=== PATIENT | female | born 1935 | race Caucasian/White ===

== ENCOUNTER → 2017-10-31 09:22 | Outpatient (CLI) | payer MEDICARE, BC, SELFPAY ==
[2017-10-31 14:43] LABS: Uric Acid 3.1 mg/dL (2.6-7.2)
[2017-11-02 18:17] LABS: Osmolality, Urine 245 mOsmol/kg (.)
== END ==
PROVIDERS: Visit Provider Internal Medicine Nephrology
DX: E87.1 Hypo-osmolality and hyponatremia (principal); I10 Essential (primary) hypertension; N18.2 Chronic kidney disease, stage 2 (mild); N39.0 Urinary tract infection, site not specified
CPT/HCPCS: 36415; 82533; 83930; 83935; 84550

== ENCOUNTER 2018-02-25 11:09 | Observation (INO) ==
--- NOTE | 2018-02-25 12:22 | Emergency Department Note ---
ED Disposition Clinical Impression: Fracture of right tibia and fibula Qualifiers: Encounter type: initial encounter Fracture type: closed Qualified Code(s): S82.201A - Unspecified fracture of shaft of right tibia, initial encounter for closed fracture Disposition: Admitted as Observation Condition on Discharge: Fair - Critical Care Critical Care Time: No Attestation: On 02/25/18, the high probability of a clinically significant, sudden or life threatening deterioration of the following system(s) required my full and direct attention, intervention and personal management. The time I documented below is in addition to time spent performing reported procedures but includes the following listed in this critical care notation. Medical Decision Making - Medical Records Medical records reviewed: Yes: I reviewed the patient's medical records. - Jose Inquiry Pt receiving controlled substance: Yes Jose was queried for this patient: No Reason not queried -: Emergent pt cond-no time Risks and benefits of using a controlled substance: were discussed with pt by me Vital Signs: 02/25/18 10:58 02/25/18 11:29 02/25/18 11:30 Temperature 98.3 F 98.3 F Temperature Source Temporal Artery Scan Temporal Artery Scan Pulse Rate [Right Brachial] 60 60 83 Respiratory Rate 16 16 17 Blood Pressure [Right Arm] 112/76 112/76 147/69 H Blood Pressure Mean [Right Arm] 88 88 95 Blood Pressure Source [Right Arm] Automatic Cuff Automatic Cuff Automatic Cuff Blood Pressure Position [Right Arm] Sitting Sitting Sitting 02 Sat by Pulse Oximetry 96 96 Oxygen Delivery Method Room Air Room Air Orders (Tests/Meds): ED MEDICATIONS Discontinued Medications Generic Name Dose Route Start Last Admin Trade Name Freq PRN Reason Stop Dose Admin Morphine Sulfate 2 mg 02/25/18 11:46 02/25/18 11:47 Morphine 2mg/Ml Syringe IV 02/25/18 11:47 2 mg ONCE ONE Administration Ondansetron HCl 4 mg 02/25/18 11:46 02/25/18 11:47 Zofran 4mg/2ml Vial IV 02/25/18 11:47 4 mg ONCE ONE Administration - Radiology Data #1 Image(s): Tib/Fib Image Reviewed: Yes I reviewed the patient's radiology results, Yes I have reviewed radiologist's interpretation Preliminary Findings: Abnormal Displaced right proximal Tib/Fib fracture Lower Extremity Injury HPI - General Chief Complaint: Fall Stated Complaint: fall Time Seen by Provider: 02/25/18 12:19 Mode of Arrival: EMS Limitations: No Limitations Description of Symptoms (Recalled from ER Triage Doc. by RN): pt was bent over cleaning up water and fell back landing on her buttocks - History of Present Illness MD complaint: leg injury Onset (ago): hour(s) (1) Injury: Right: knee Type of Injury: unknown Place: home Severity: moderate Severity scale (1-10): 7 Relieving factors: nothing Exacerbating factors: weight bearing, movement, palpation Context: fall Associated symptoms: swelling, unable to bear weight Other symptoms: none - Related Data Home Medications Medication Instructions Recorded Confirmed ALPRAZolam [Xanax 0.25mg tab] 0.25 mg PO BIDP 02/25/18 02/25/18 Carvedilol [Carvedilol 3.125mg Tab] 3.125 mg PO BID 02/25/18 02/25/18 Furosemide [Lasix 20mg tab] 20 mg PO DAILY 02/25/18 02/25/18 Gabapentin [Gabapentin 300mg Cap] 300 mg PO BID 02/25/18 02/25/18 Hydralazine HCl [Hydralazine HCl 25 mg PO BID 02/25/18 02/25/18 25mg Tablet] Losartan Potassium 50 mg PO BID 02/25/18 02/25/18 Omeprazole [Omeprazole 40mg 40 mg PO DAILY 02/25/18 02/25/18 Capsule] Pravastatin Sodium [Pravachol 40mg 40 mg PO DAILY 02/25/18 02/25/18 Tablet] Allergies Allergy/AdvReac Type Severity Reaction Status Date / Time penicillin G Allergy Intermediate Verified 02/25/18 11:54 [facility] History I have reviewed the patient's past medical history: Yes - Social History Alcohol Intake: never - Psychiatric History Expresses thoughts of harming self/others: None Suicide Plan Description: No Plan ROS Obtained: Yes All systems reviewed & no additional complaints - Constitutional Constitutional: Reports system reviewed and no additional complaints, except as docu, Denies chills, Denies fever(s), Denies headache(s) - Cardiovascular Cardiovascular: Reports system reviewed and no additional complaints, except as docu, Denies chest pain, Denies dyspnea - Respiratory Respiratory: Yes system reviewed and no additional complaints, except as docu, No cough, No dyspnea - Gastrointestinal Gastrointestingal: Reports: system reviewed and no additional complaints, except as docu. Denies: diarrhea, nausea, vomiting - Genitourinary Female Genitourinary: Reports system reviewed and no additional complaints, except as docu, Denies dysuria - Musculoskeletal Musculoskeletal: Denies back pain, Reports limited range of motion (right lower extremity), Reports radiating pain into limb - Integumentary/Breasts Skin/Breast: Reports system reviewed and no additional complaints, except as docu, Denies wounds - Neurologic Neurologic: Reports system reviewed and no additional complaints, except as docu, Denies dizziness, Denies headache(s) Physical Exam - General General appearance: alert, in distress (moderate) - Head Head exam: atraumatic, normocephalic, normal inspection - Eye Eye exam: Present: normal appearance, PERRL, EOMI - ENT ENT exam: Present: normal exam, normal oropharynx, mucous membranes moist, normal external ear exam - Neck Neck exam: Present: normal inspection, full ROM, trachea midline. Absent: meningismus, lymphadenopathy - Chest Chest inspection: Present: normal inspection, symmetric chest wall rise. Absent: tenderness - Respiratory Respiratory exam: Present: normal lung sounds bilaterally. Absent: respiratory distress - Cardiovascular Cardiovascular exam: Present: regular rate, normal rhythm. Absent: JVD - Abdominal Exam Abdominal exam: Present: soft, normal bowel sounds. Absent: distention, tenderness, guarding - Extremities Exam Extremities exam: Present: normal inspection, tenderness (Proximal RLE), normal capillary refill - Back Exam Back exam: Present: normal inspection. Absent: tenderness - Neurological Exam Neurological exam: Present: alert, oriented X3 - Psychiatric Psychiatric exam: Present: normal affect, normal mood - Skin Skin exam: Present: warm, dry, intact, normal color
--- NOTE | 2018-02-25 15:03 | History & Physical Report ---
*Admission Date: 02/25/18 <Shelby Eaton 02/25/18 15:15> *Chief complaint: fall with fracture of tibia and fibula <Shelby Eaton 02/25/18 15:15> *History of present illness: Ms Quezada is an 82 year old female with a history of HTN who presented to [facility] ER via ambulance after a fall at home resulting in fracture of the right lower leg. Xray confirmed fracture of the tibia and fibula. Patient states she was reaching down and fell backwards. She was unable to get up even with the help of her . EMS was called and she was brought to [facility]. Patient has periodic spells where she becomes dizzy but this was not occurring at the time of her fall. She denies chest pain and shortness of breath before during or after the fall. She normally walks around without any problems. At the time of this exam patient is comfortable after receiving morphine. She is waiting for orthopedic assessment. <EatonShelby 02/25/18 16:33> [facility] History I have reviewed the patient's past medical history: Yes <ErinJuan F - 02/25/18 15:54> Medical History: Reports:: Anxiety, Hypertension Denies:: Atherosclerotic Heart Disease, Chronic Obstructive Pulmonary Disease (COPD), Diabetes Mellitus Type 2 <Shelby Eaton 02/25/18 16:33> Comment: back problems <Shelby Eaton 02/25/18 15:15> Other Surgeries: Yes: Hysterectomy-Partial <Shelby Eaton 02/25/18 15:15> Comment: 2 back surgeries <EatonShelby 02/25/18 15:15> - *Social History Smoking Status: Former smoker <Shelby Eaton 02/25/18 15:15> Alcohol Intake: never <Eaton,Shelby 02/25/18 15:15> - Psychiatric History Expresses thoughts of harming self/others: None <Eaton,Shelby 02/25/18 15:15> Suicide Plan Description: No Plan <Shelby Eaton Andre 02/25/18 15:15> *Family Hx:: Coronary Artery Disease, Diabetes, Stroke <AngelitoShelby 02/25/18 15:15> Review of Systems - Constitutional Denies fever(s), Denies lack of energy <Shelby Eaton 02/25/18 15:15> - *Cardiovascular Reports shortness of breath (with exertion), Denies chest pain <Shelby Eaton 02/25/18 15:15> Comments: history of head feeling funny resulting in cardiology referral and cardiac workup with pending results <Shelby Eaton 02/25/18 15:15> - *Respiratory Reports shortness of breath (with exertion), Denies chest congestion, Denies cough <Shelby Eaton 02/25/18 15:15> - *Gastrointestinal Denies abdominal pain, Denies change in stools, Denies vomiting blood, Denies loose stools, Denies nausea, Denies vomiting <[facility] 02/25/18 15:15> - *Genitourinary Denies difficulty urinating <[facility] 02/25/18 15:15> - *Musculoskeletal Reports joint pain <[facility] 02/25/18 15:15> Comments: right leg pain <[facility] 02/25/18 15:15> - *Neurologic Denies dizziness, Denies headache(s), Denies fainting <Shelby Eaton 02/25/18 15:15> Meds Home Medications Medication Instructions Recorded Confirmed Type ALPRAZolam [Xanax 0.25mg tab] 0.25 mg PO BIDP 02/25/18 02/25/18 History Carvedilol [Carvedilol 3.125mg Tab] 3.125 mg PO BID 02/25/18 02/25/18 History Furosemide [Lasix 20mg tab] 20 mg PO DAILY 02/25/18 02/25/18 History Gabapentin [Gabapentin 300mg Cap] 300 mg PO BID 02/25/18 02/25/18 History Hydralazine HCl [Hydralazine HCl 25 mg PO BID 02/25/18 02/25/18 History 25mg Tablet] Losartan Potassium 50 mg PO BID 02/25/18 02/25/18 History Omeprazole [Omeprazole 40mg 40 mg PO DAILY 02/25/18 02/25/18 History Capsule] Pravastatin Sodium [Pravachol 40mg 40 mg PO HS 02/25/18 02/25/18 History Tablet] <HuguenotSadiq - 02/25/18 18:09> Allergies Allergy/AdvReac Type Severity Reaction Status Date / Time penicillin G Allergy Intermediate Verified 02/25/18 11:54 <HuguenotSadiq - 02/25/18 18:09> Exam Vital signs and Labs for Last 24 Hours: Temp Pulse Resp BP Pulse Ox 98.1 F 75 16 152/95 H 97 02/25/18 16:49 02/25/18 16:49 02/25/18 16:49 02/25/18 16:49 02/25/18 16:59 <HuguenotSadiq - 02/25/18 18:09> Temp Pulse Resp BP Pulse Ox 98.3 F 66 17 105/51 L 98 02/25/18 11:29 02/25/18 15:48 02/25/18 15:48 02/25/18 15:48 02/25/18 15:48 <Raúl Khanimi - 02/25/18 17:04> Temp Pulse Resp BP Pulse Ox 98.3 F 74 18 99/47 L 98 02/25/18 11:29 02/25/18 14:30 02/25/18 14:30 02/25/18 14:30 02/25/18 14:30 <Shelby Eaton - 02/25/18 15:15> I & O for Last 24 hours: Intake & Output 02/23/18 02/24/18 02/25/18 02/26/18 11:59 11:59 11:59 11:59 Intake Total 1000 / 1000 Balance 1000 / 1000 Weight 125 lb 133 lb <Huguenot,Sadiq - 02/25/18 18:09> Intake & Output 02/22/18 02/23/18 02/24/18 02/25/18 23:59 23:59 23:59 23:59 Weight 56.699 kg <Ilmarleyomade,Juan F - 02/25/18 17:04> Intake & Output 02/23/18 02/24/18 02/25/18 02/26/18 11:59 11:59 11:59 11:59 Weight 125 lb <Shelby Eaton - 02/25/18 15:15> Radiology Reports for the Last 24 Hours: 02/25/18 x-ray of tib/fib IMPRESSION: Comminuted mildly displaced proximal tibia fracture with nondisplaced proximal fibular fracture <[facility] 02/25/18 15:15> - Constitutional no acute distress <[facility] 02/25/18 15:15> Comments: lying on stretcher in the ER; appears comfortable <[facility] 02/25/18 15:15> - *Routine HEENT Exam Head: Present: normocephalic, atraumatic <[facility] 02/25/18 15:15> Eye: Present: PERRL. Absent: conjunctival icterus, scleral injection <[facility] 02/25/18 15:15> ENT: Present: mucous membranes moist, oropharynx clear, nares patent, external ear normal, TM's clear bilaterally <[facility] 02/25/18 15:15> - *Routine Neck Exam Present: supple. Absent: carotid bruit, lymphadenopathy, thyromegaly <[facility] 02/25/18 15:15> - *Routine Respiratory Exam Present: CTA bilaterally (anteriorly and posteriorly) <[facility] 02/25/18 15:15> - *Routine Cardiovascular Exam Present: RRR <[facility] 02/25/18 15:15> - *Routine Abdominal Exam Present: soft, normoactive bowel sounds. Absent: tenderness, distended, guarding <[facility] 02/25/18 15:15> - *Routine Extremities Exam Absent: edema, calf tenderness <[facility] 02/25/18 15:15> Comments: right leg with extended knee brace on <[facility] 02/25/18 15:15> - *Routine Neurological Exam Present: alert, oriented X3 <[facility] 02/25/18 15:15> Assessment and Plan (1) Fracture of right tibia and fibula Current visit: Yes Status: Acute Qualifiers: Encounter type: initial encounter Fracture type: closed Qualified Code(s): S82.201A - Unspecified fracture of shaft of right tibia, initial encounter for closed fracture; S82.401A - Unspecified fracture of shaft of right fibula, initial encounter for closed fracture Category: Medical Code(s): S82.201A - Unspecified fracture of shaft of right tibia, initial encounter for closed fracture; S82.401A - Unspecified fracture of shaft of right fibula, initial encounter for closed fracture (2) Hypertension Current visit: Yes Status: Chronic Category: Medical Code(s): I10 - Essential (primary) hypertension (3) Anxiety Current visit: Yes Status: Chronic Category: Medical Code(s): F41.9 - Anxiety disorder, unspecified <Shelby Eaton - 02/25/18 16:28> - Assessment and plan all Dx Assessment and Plan for all problems:: Saw patient, agree with above note. <Sadiq Valenzuela - 02/25/18 18:09> Patient to be seen orthopedics. She has a knee immobilizer on the right. We will continue with pain management. <Shelby Eaton - 02/25/18 16:33>
--- NOTE | 2018-02-25 21:20 | Pharmacy Consult Notes ---
[facility] Pharmacy VTE Monitoring - Patient Demographics Admission date: 02/25/18 Report Date: 02/25/18 Time: 21:19 Allergies/Adverse Reactions: Patient Allergies penicillin G Allergy (Intermediate, Verified 02/25/18 11:54) Height: 1.57 m Weight: 60.328 kg Patient Problems: Current Active Problems Fracture of right tibia and fibula (Acute) Hypertension (Chronic) Anxiety (Chronic) - VTE Risk VTE Score: 4 VTE Risk Level: Low Risk Clinical Trial Participant: No - Prophylaxis VTE Prophylaxis Ordered?: Yes Types of VTE Prophylaxis: TEDS Knee High
--- NOTE | 2018-02-25 22:36 | Consult Report ---
*Admission Date: 02/25/18 *Chief complaint: Fall with fracture of right tibia and fibula *History of present illness: Patient is a pleasant 82-year-old female admitted to hospital today from the ER mainly for social reasons. She says she fell at home while trying to clean the wet floor this morning. She was unable to get up and walk and was brought to the [facility] ER for evaluation and further management. X-rays in the ER showed a minimally displaced proximal tibia fracture with a nond isplaced fibular neck fracture on the right side. I was contacted earlier this afternoon by the ER physician and after reviewing her x-rays, I have recommended splinting and follow-up in the office in a couple of days time. However, the ER physician made a decision to admit the patient to acute medical service under Dr. Valenzuela for social reasons given her age and difficulty with nonweightbeari ng mobilization. I have briefly seen her in the ER earlier this afternoon but could not complete full evaluation at that time as the ER physician was evaluating her for a possible seizure. At that time, I have discussed with her regarding the management options and he indicated a preference for nonsurgical management. This, I felt, is appropriate given her age and only minimal displacement at the tibial fracture site and no displacement of the fibular fracture site. I have recommended application of a long-leg splint to her right leg. She has history of HTN and anxiety as well as history of periodic spells of dizziness. However, patient states that she did not have a dizzy spell prior to the fall today. She denies chest pain and shortness of breath before during or after the fall. She normally walks around without any problems and does not use any walking aids. At the time of this examination patient is comfortable and quietly resting in bed. She says she has minimal pain which is well controlled with medication. Review of Systems - Constitutional Denies chills, Denies fever(s), Denies lack of energy - *Cardiovascular Denies chest pain, Denies shortness of breath - *Respiratory Denies cough, Denies shortness of breath - *Gastrointestinal Denies abdominal pain, Denies difficulty swallowing - *Genitourinary Denies difficulty urinating - *Musculoskeletal Reports joint pain, Reports limited joint movement, Reports other Comments: Right leg injury - *Neurologic Denies dizziness, Denies headache(s), Denies fainting - Psychiatric Denies behavioral changes, Denies change in appetite [facility] History I have reviewed the patient's past medical history: Yes Medical History: Reports:: Anxiety, Hypertension Denies:: Atherosclerotic Heart Disease, Cancer, Chronic Obstructive Pulmonary Disease (COPD), Diabetes Mellitus Type 1, Diabetes Mellitus Type 2, MRSA Other Surgeries: Yes: Hysterectomy-Total, Hysterectomy-Partial Amputation: No Fractures: Yes - *Social History Educational Level: Completed High School Smoking Status: Never smoker Alcohol Intake: never Occupational Status: retired Housing: house Household Members: spouse - Psychiatric History Expresses thoughts of harming self/others: None Suicide Plan Description: No Plan Pschychiatric History:: Reports:: Anxiety *Family Hx:: Coronary Artery Disease, Diabetes, Stroke Meds Home Medications Medication Instructions Recorded Confirmed Type ALPRAZolam [Xanax 0.25mg tab] 0.25 mg PO BIDP 02/25/18 02/25/18 History Carvedilol [Carvedilol 3.125mg Tab] 3.125 mg PO BID 02/25/18 02/25/18 History Furosemide [Lasix 20mg tab] 20 mg PO DAILY 02/25/18 02/25/18 History Gabapentin [Gabapentin 300mg Cap] 300 mg PO BID 02/25/18 02/25/18 History Hydralazine HCl [Hydralazine HCl 25 mg PO BID 02/25/18 02/25/18 History 25mg Tablet] Losartan Potassium 50 mg PO BID 02/25/18 02/25/18 History Omeprazole [Omeprazole 40mg 40 mg PO DAILY 02/25/18 02/25/18 History Capsule] Pravastatin Sodium [Pravachol 40mg 40 mg PO HS 02/25/18 02/25/18 History Tablet] Allergies Allergy/AdvReac Type Severity Reaction Status Date / Time penicillin G Allergy Intermediate Verified 02/25/18 11:54 Exam Vital signs and Labs for Last 24 Hours: Temp Pulse Resp BP Pulse Ox 98.1 F 75 16 152/95 H 97 02/25/18 16:49 02/25/18 16:49 02/25/18 16:49 02/25/18 16:49 02/25/18 16:59 I & O for Last 24 hours: Intake & Output 1102/24/18 02/25/18 02/26/18 11:59 11:59 11:59 11:59 Intake Total 1240 / 1240 Output Total 540 / 540 Balance 700 / 700 Weight 125 lb 133 lb - Constitutional no acute distress, average body habitus, cooperative - *Routine HEENT Exam Head: Present: normocephalic, atraumatic Eye: Present: EOMI, PERRL ENT: Present: mucous membranes moist - *Routine Neck Exam Present: supple, full ROM, trachea midline. Absent: lymphadenopathy - *Routine Respiratory Exam Present: CTA bilaterally. Absent: respiratory distress - *Routine Cardiovascular Exam Present: RRR, Normal S1, Normal S2 - *Routine Abdominal Exam Present: soft, normoactive bowel sounds. Absent: organomegaly - *Routine Extremities Exam Comments: On examination of her right lower extremity, the leg is in a temporary, removable foarm splint. On examination out of the splint, the skin is intact. There is diffuse swelling and tenderness over the proximal third of the right leg. There is also some swelling of her right knee with 1+ knee effusion. Movements of the right lower extremity are limited with pain. She has altered sensation over the dorsum of the foot. She has good range of ankle, foot and toe movements. No obvious motor deficit noted. Dorsalis pedis and posterior tibial pulses 1+ bilaterally. Thigh and leg compartments are soft. No stretch pain or other signs of compartment syndrome noted. Diagnostic imaging: X-rays of her right leg including knee and ankle joint AP and lateral views reviewed along with radiologist report. The x-rays show a minimally displaced, comminuted fracture proximal third of the tibia with a comminuted nondisplaced fracture of the fibular neck. - Routine Back/Spine/Pelvis Exam Back/Spine: Absent: paraspinal tenderness, vertebral tenderness Pelvis: Absent: pain with lateral compression of the pelvis - *Routine Skin Exam Present: intact, warm, normal turgor - *Routine Neurological Exam Present: alert, oriented X3 - Routine Psychiatric Exam Present: normal affect, cooperative Results - Labs Labs: All other labs normal. Assessment and Plan (1) Fracture of right tibia and fibula Current visit: Yes Status: Acute Qualifiers: Encounter type: initial encounter Fracture type: closed Qualified Code(s): S82.201A - Unspecified fracture of shaft of right tibia, initial encounter for closed fracture; S82.401A - Unspecified fracture of shaft of right fibula, initial encounter for closed fracture Category: Medical Code(s): S82.201A - Unspecified fracture of shaft of right tibia, initial encounter for closed fracture; S82.401A - Unspecified fracture of shaft of right fibula, initial encounter for closed fracture - Assessment and plan all Dx Assessment and Plan for all problems:: I reviewed the clinical and x-ray findings with the patient. I have discussed the diagnosis, natural history and management options in detail including both nonsurgical and surgical. Given her age, the fracture pattern with minimal displacement and acceptable overall alignment, she preferred nonsurgical management. I have told her that nonsurgical management would involve immobilization with a long leg splint/cast until the fracture heals- this could take more than 3 months. During this period, she would have regular follow-up with serial x-rays. Patient is aware that she may need surgery at any point if there is significant displacement at the fracture site, she is not able to tolerate the splint/cast or develops any other complications that are best managed by surgery. I told her that the tibial fracture may go into nonunion/malunion for which she may need surgery in future. The risks of nonoperative management would include malunion, nonunion, compartment syndrome, DVT/PE, loss of position or inability to tolerate the splinting necessitating surgery in future, pressure ulcers, knee and ankle stiffness, incomplete relief of pain, incomplete return of function and the likely need for surgery in future. The fibula fracture usually heals by itself and does not need surgical fixation. 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 There is no motor deficit. 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 The surgical management options for her fracture would be a closed/open reduction and internal fixation with tibial nailing/plating. I discussed the details of the surgical procedure, risks and benefits and alternatives. Risks of surgery discussed include but are not limited to- infection, bleeding injury to nerves and blood vessels, compartment syndrome, fat embolism, intra-articular knee injury, incisional scar (cosmesis), DVT/PE, malunion, nonunion/delayed union, refracture, knee/ankle stiffness and pain, CRPS (complex regional pain syndrome- pain, sensory and temperature changes, swelling and stiffness), painful/prominent hardware, loss of fixation/hardware failure, incomplete relief of pain, incomplete return of function, and likely need for further surgery in future and also the risks of anesthesia including heart attack, stroke, and even . We've discussed how there is a small but real possibility of loss of use of the leg, loss of the limb (amputation) or loss of life itself. We've also explained how additional surgery may be required if there are any complications or the fracture fails to heal. Following a detailed discussion, patient opted for nonsurgical management. I have applied a well-padded long leg splint for temporary immobilization and comfort. Advised elevation, active mobilization of the toes, ice the fracture site frequently, as needed pain medication, observe for compartment syndrome and mobilization nonweightbearing on the right side. Physical therapy consult for nonweightbearing mobilization training with walker/crutches as appropriate. The patient expressed good understanding and has asked appropriate questions. All her questions were answered and she verbalized a good understanding. From an orthopedic standpoint, patient can be discharged when safe and comfortable and medically appropriate. Follow-up in my office in 1 week's time at which point we will evaluate her for application of a long-arm cast. Patient is aware that she would need regular and close follow-up for a considerable length of time. Medical management as per Dr. Valenzuela.
[2018-02-26 05:33] LABS: Basophils % 0.7 % (0.1-2.0); Eosinophils # 0.1 K/mm3 (0.0-0.4); Lymphocytes # 1.9 K/mm3 (0.7-4.5); Lymphocytes % 32.2 % (10-50); Mean Corpuscular HGB Conc 32.1 g/dL (31.8-35.4); Mean Corpuscular Hemoglobin 38.2 pg (27.0-31.2); Mean Platelet Volume 10.2 fl (7.4-10.4); Monocytes # 0.6 K/mm3 (0.1-1.0); Monocytes % 9.7 % (1.7-9.3); Neutrophils # 3.3 K/mm3 (1.8-7.8); Neutrophils % 56.4 % (37.0-80.0); Platelet Count 119 K/mm3 (142-424); Red Cell Distribution Width 17.8 % (11.5-17.5); White Blood Count 5.9 K/mm3 (4.8-10.8)
[2018-02-26 05:35] LABS: Hematocrit 21.4 % (37.0-47.0); Hemoglobin 6.9 g/dL (12.2-16.2)
[2018-02-26 05:47] LABS: Albumin Level 2.6 gm/dL (3.4-5.0); Albumin/Globulin Ratio 0.9 (1.1-1.8); Bilirubin,Total 0.7 mg/dL (0.2-1.0); Calcium 7.7 mg/dL (8.5-10.1); Globulin 2.8 gm/dl (1.3-3.2); Total Protein,Serum 5.4 gm/dL (6.4-8.2)
[2018-02-26 07:26] LABS: Basophils % 0.6 % (0.1-2.0); Eosinophils # 0.1 K/mm3 (0.0-0.4); Eosinophils % 1.4 % (0.1-12.0); Lymphocytes # 1.9 K/mm3 (0.7-4.5); Lymphocytes % 31.9 % (10-50); Mean Corpuscular HGB Conc 32.8 g/dL (31.8-35.4); Mean Corpuscular Hemoglobin 39.1 pg (27.0-31.2); Mean Corpuscular Volume 119.2 fl (81-99); Mean Platelet Volume 8.4 fl (7.4-10.4); Monocytes # 0.6 K/mm3 (0.1-1.0); Monocytes % 9.4 % (1.7-9.3); Neutrophils # 3.3 K/mm3 (1.8-7.8); Neutrophils % 56.7 % (37.0-80.0); Platelet Count 146 K/mm3 (142-424); Red Blood Count 1.75 M/mm3 (4.20-5.40); Red Cell Distribution Width 17.7 % (11.5-17.5); White Blood Count 5.9 K/mm3 (4.8-10.8)
[2018-02-26 07:36] LABS: Albumin Level 2.5 gm/dL (3.4-5.0); Albumin/Globulin Ratio 0.9 (1.1-1.8); Anion Gap 9.9 mEq/L (5-15); Bilirubin,Total 0.8 mg/dL (0.2-1.0); Calcium 7.7 mg/dL (8.5-10.1); Globulin 2.9 gm/dl (1.3-3.2); Hematocrit 20.8 % (37.0-47.0); Hemoglobin 6.8 g/dL (12.2-16.2); Potassium 3.9 mmoL/L (3.5-5.1); Total Protein,Serum 5.4 gm/dL (6.4-8.2)
--- NOTE | 2018-02-26 08:46 | Progress Note ---
Internal Medicine - PN: Subj *Date: 02/26/18 *Time: 08:44 Interval history: Patient with no new complaints today, still has some pain in leg, less nausea today. Splint was placed n leg last night. Exam Vital signs and Labs for Last 24 Hours: Temp Pulse Resp BP Pulse Ox 98.6 F 78 16 105/45 L 95 02/26/18 08:00 02/26/18 08:00 02/26/18 08:00 02/26/18 08:00 02/26/18 08:00 Laboratory Results - last 24 hr 02/26/18 05:25: WBC 5.9, RBC 1.80 L*, Hgb 6.9 L*, Hct 21.4 L*, MCV 119.0 H, MCH 38.2 H, MCHC 32.1, RDW 17.8 H, Plt Count 119 L, MPV 10.2, Neut % (Auto) 56.4, Lymph % (Auto) 32.2, [place] % (Auto) 9.7 H, Eos % (Auto) 1.0, Baso % (Auto) 0.7, Neut # (Auto) 3.3, Lymph # (Auto) 1.9, [place] # (Auto) 0.6, Eos # (Auto) 0.1, Baso # (Auto) 0.0 02/26/18 05:25: Sodium 133 L, Potassium 4.0, Chloride 99, Carbon Dioxide 26, Anion Gap 12.0, BUN 11, Creatinine 0.98, Estimated Creat Clear 41, Estimated GFR 54 L, Est GFR ( Amer) 66, Glucose 116 H, Calcium 7.7 L, Total Bilirubin 0.7, AST 12 L, ALT 15, Alkaline Phosphatase 39 L, Total Protein 5.4 L, Albumin 2.6 L, Globulin 2.8, Albumin/Globulin Ratio 0.9 L 02/26/18 07:00: WBC 5.9, RBC 1.75 L*, Hgb 6.8 L*, Hct 20.8 L*, MCV 119.2 H, MCH 39.1 H, MCHC 32.8, RDW 17.7 H, Plt Count 146, MPV 8.4, Neut % (Auto) 56.7, Lymph % (Auto) 31.9, [place] % (Auto) 9.4 H, Eos % (Auto) 1.4, Baso % (Auto) 0.6, Neut # (Auto) 3.3, Lymph # (Auto) 1.9, [place] # (Auto) 0.6, Eos # (Auto) 0.1, Baso # (Auto) 0.0 02/26/18 07:00: Sodium 133 L, Potassium 3.9, Chloride 100, Carbon Dioxide 27, Anion Gap 9.9, BUN 10, Creatinine 0.95, Estimated Creat Clear 41, Estimated GFR 56 L, Est GFR ( Amer) 68, Glucose 107 H, Calcium 7.7 L, Total Bilirubin 0.8, AST 11 L, ALT 15, Alkaline Phosphatase 38 L, Total Protein 5.4 L, Albumin 2.5 L, Globulin 2.9, Albumin/Globulin Ratio 0.9 L I & O for Last 24 hours: Intake & Output 02/23/18 02/24/18 02/25/18 02/26/18 11:59 11:59 11:59 11:59 Intake Total 1480 / 1480 Output Total 790 / 790 Balance 690 / 690 Weight 125 lb 133 lb - Constitutional no acute distress - *Routine Respiratory Exam Present: CTA bilaterally - *Routine Cardiovascular Exam Present: RRR Assessment and Plan (1) Fracture of right tibia and fibula Current visit: Yes Status: Acute Qualifiers: Encounter type: initial encounter Fracture type: closed Qualified Code(s): S82.201A - Unspecified fracture of shaft of right tibia, initial encounter for closed fracture; S82.401A - Unspecified fracture of shaft of right fibula, initial encounter for closed fracture Category: Medical Code(s): S82.201A - Unspecified fracture of shaft of right tibia, initial encounter for closed fracture; S82.401A - Unspecified fracture of shaft of right fibula, initial encounter for closed fracture (2) Anemia Current visit: Yes Status: Acute Category: Medical Code(s): D64.9 - Anemia, unspecified (3) Hypertension Current visit: Yes Status: Chronic Category: Medical Code(s): I10 - Essential (primary) hypertension - Assessment and plan all Dx Assessment and Plan for all problems:: Plan transfusion of 2 units of PRBCs today, PT to see patient.
--- NOTE | 2018-02-26 14:10 | Progress Note ---
Subjective Date: 02/26/18 Time: 10:15 Principal diagnosis: Fracture tibia and fibula, right leg Interval history: Patient is lying down in bed says she is comfortable. She says she has some leg pain which is well controlled with medication. No history of any nausea or vomiting. No history of any cough, chest pain, shortness of breath or palpitations. Patient says she is eating and drinking well. Her and son are with her in the room. The labs this morning showed very low hemoglobin and she is to be transfused 2 units of packed cells today. 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 PN: Obj Ex Vital signs: Temp Pulse Resp BP Pulse Ox 98.8 F 80 18 107/40 L 97 02/26/18 13:35 02/26/18 13:35 02/26/18 13:35 02/26/18 13:35 02/26/18 13:35 Narrative: Laboratory Results - last 24 hr 02/26/18 05:25: WBC 5.9, RBC 1.80 L*, Hgb 6.9 L*, Hct 21.4 L*, MCV 119.0 H, MCH 38.2 H, MCHC 32.1, RDW 17.8 H, Plt Count 119 L, MPV 10.2, Neut % (Auto) 56.4, Lymph % (Auto) 32.2, [place] % (Auto) 9.7 H, Eos % (Auto) 1.0, Baso % (Auto) 0.7, Neut # (Auto) 3.3, Lymph # (Auto) 1.9, [place] # (Auto) 0.6, Eos # (Auto) 0.1, Baso # (Auto) 0.0 02/26/18 05:25: Sodium 133 L, Potassium 4.0, Chloride 99, Carbon Dioxide 26, Anion Gap 12.0, BUN 11, Creatinine 0.98, Estimated Creat Clear 41, Estimated GFR 54 L, Est GFR ( Amer) 66, Glucose 116 H, Calcium 7.7 L, Total Bilirubin 0.7, AST 12 L, ALT 15, Alkaline Phosphatase 39 L, Total Protein 5.4 L, Albumin 2.6 L, Globulin 2.8, Albumin/Globulin Ratio 0.9 L 02/26/18 05:25: Ferritin 188 02/26/18 07:00: WBC 5.9, RBC 1.75 L*, Hgb 6.8 L*, Hct 20.8 L*, MCV 119.2 H, MCH 39.1 H, MCHC 32.8, RDW 17.7 H, Plt Count 146, MPV 8.4, Neut % (Auto) 56.7, Lymph % (Auto) 31.9, [place] % (Auto) 9.4 H, Eos % (Auto) 1.4, Baso % (Auto) 0.6, Neut # (Auto) 3.3, Lymph # (Auto) 1.9, [place] # (Auto) 0.6, Eos # (Auto) 0.1, Baso # (Auto) 0.0 02/26/18 07:00: Sodium 133 L, Potassium 3.9, Chloride 100, Carbon Dioxide 27, Anion Gap 9.9, BUN 10, Creatinine 0.95, Estimated Creat Clear 41, Estimated GFR 56 L, Est GFR ( Amer) 68, Glucose 107 H, Calcium 7.7 L, Total Bilirubin 0.8, AST 11 L, ALT 15, Alkaline Phosphatase 38 L, Total Protein 5.4 L, Albumin 2.5 L, Globulin 2.9, Albumin/Globulin Ratio 0.9 L 02/26/18 09:30: Blood Type A Positive, Antibody Screen Negative, Crossmatch (AHG) See Detail 02/26/18 09:55: Blood Type Confirm A Positive Exam: General appearance: alert, active, awake Cardiovascular: regular rate & rhythm, normal peripheral pulses Respiratory: No respiratory distress noted, speaks in full sentences ABD: soft and non tender Neuro: alert, awake, oriented x 3 On examination of the l right lower extremity, a well fitting long leg splint is in place. She reports no problems from the splint. Patient is able to actively mobilize the toes. Sensation is intact light touch over the toes. Capillary refill is brisk. No stretch pain or other signs of compartment syndrome noted. - Urinary Catheter Management Padron Cath placed during this visit: yes Urethral indwelling: No Insertion date: 02/25/18 Insertion time: 17:10 Progress Note: A&P (1) Fracture of right tibia and fibula Status: Acute Current Visit: Yes (2) Anemia Status: Acute Current Visit: Yes (3) Hypertension Status: Chronic Current Visit: Yes Assessment and Plan for All Diagnoses:: I again reviewed the clinical and x-ray findings with the patient and her family. The patient, her and son are keen for nonsurgical management and do not want surgery unless it is absolutely necessary. Continue elevation, icing, as needed pain medication. To be seen by physical therapy for mobilization nonweightbearing on the right side. Patient can be discharged from an orthopedic standpoint when safe and comfortable. Follow-up in my office in 1 week's time. Medical management as per Dr. Valenzuela.
[2018-02-26 18:19] LABS: Hematocrit 30.5 % (37.0-47.0)
[2018-02-26 18:33] LABS: Hemoglobin 10.3 g/dL (12.2-16.2)
--- NOTE | 2018-02-27 07:54 | Progress Note ---
<Shelby Eaton - Last Filed: 02/27/18 07:50> Internal Medicine - PN: Subj *Date: 02/27/18 *Time: 07:50 Interval history: Patient slept well last night. She is eating okay although she has a poor appetite. She cannot tell if she feels better after receiving 2 units of packed blood cells yesterday. Her leg does hurt at times. She has voided since her Padron catheter was removed. She denies chest pain and shortness of air. PT and OT report reviewed. Patient required maximum assist to stand. Exam Vital signs and Labs for Last 24 Hours: Temp Pulse Resp BP Pulse Ox 97.8 F 79 18 133/52 L 95 02/27/18 04:00 02/27/18 04:00 02/27/18 04:00 02/27/18 04:00 02/27/18 04:00 Laboratory Results - last 24 hr 02/26/18 05:25: Ferritin 188 02/26/18 09:30: Blood Type A Positive, Antibody Screen Negative, Crossmatch (AHG) See Detail 02/26/18 09:55: Blood Type Confirm A Positive 02/26/18 18:01: Hgb 10.3 L D, Hct 30.5 L I & O for Last 24 hours: Intake & Output 02/24/18 02/25/18 02/26/18 02/27/18 11:59 11:59 11:59 11:59 Intake Total 1480 / 1480 869 / 869 Output Total 790 / 790 1225 / 1225 Balance 690 / 690 -356 / -356 Weight 125 lb 133 lb - Constitutional no acute distress Comments: Appears comfortable lying in bed. Assisted in preparation for breakfast - *Routine Respiratory Exam Present: CTA bilaterally - *Routine Cardiovascular Exam Present: RRR - *Routine Abdominal Exam Present: soft, normoactive bowel sounds. Absent: tenderness - *Routine Extremities Exam Absent: edema, calf tenderness Comments: Patient right leg and long leg cast. Toes are warm and freely movable - *Routine Neurological Exam Present: alert, oriented X3 Assessment and Plan (1) Fracture of right tibia and fibula Current visit: Yes Status: Acute Qualifiers: Encounter type: initial encounter Fracture type: closed Qualified Code(s): S82.201A - Unspecified fracture of shaft of right tibia, initial encounter for closed fracture; S82.401A - Unspecified fracture of shaft of right fibula, initial encounter for closed fracture Category: Medical Code(s): S82.201A - Unspecified fracture of shaft of right tibia, initial encounter for closed fracture; S82.401A - Unspecified fracture of shaft of right fibula, initial encounter for closed fracture (2) Anemia Current visit: Yes Status: Acute Category: Medical Code(s): D64.9 - Anemia, unspecified (3) Hypertension Current visit: Yes Status: Chronic Category: Medical Code(s): I10 - Essential (primary) hypertension - Assessment and plan all Dx Assessment and Plan for all problems:: Anemia studies are pending. Care management working on charge planning with possible rehab at [facility]. <Sadiq Valenzuela - Last Filed: 02/27/18 09:00> Exam Vital signs and Labs for Last 24 Hours: Temp Pulse Resp BP Pulse Ox 98.2 F 80 17 126/52 L 92 L 02/27/18 08:00 02/27/18 08:00 02/27/18 08:00 02/27/18 08:00 02/27/18 08:00 Laboratory Results - last 24 hr 02/26/18 05:25: Ferritin 188 02/26/18 09:30: Blood Type A Positive, Antibody Screen Negative, Crossmatch (AHG) See Detail 02/26/18 09:55: Blood Type Confirm A Positive 02/26/18 18:01: Hgb 10.3 L D, Hct 30.5 L 02/27/18 08:30: WBC 6.7, RBC 2.74 L D, Hgb 9.2 L D, Hct 28.4 L, MCV 103.7 H, MCH 33.3 H, MCHC 32.2, RDW 23.7 H D, Plt Count 109 L D, MPV 9.6, Neut % (Auto) 68.9, Lymph % (Auto) 21.4, [place] % (Auto) 8.5, Eos % (Auto) 0.5, Baso % (Auto) 0.7, Neut # (Auto) 4.6, Lymph # (Auto) 1.4, [place] # (Auto) 0.6, Eos # (Auto) 0.0, Baso # (Auto) 0.1 I & O for Last 24 hours: Intake & Output 02/24/18 02/25/18 02/26/18 02/27/18 11:59 11:59 11:59 11:59 Intake Total 1480 / 1480 989 / 989 Output Total 790 / 790 1475 / 1475 Balance 690 / 690 -486 / -486 Weight 125 lb 133 lb Assessment and Plan (1) Fracture of right tibia and fibula Current visit: Yes Status: Acute Qualifiers: Encounter type: initial encounter Fracture type: closed Qualified Code(s): S82.201A - Unspecified fracture of shaft of right tibia, initial encounter for closed fracture; S82.401A - Unspecified fracture of shaft of right fibula, initial encounter for closed fracture Category: Medical Code(s): S82.201A - Unspecified fracture of shaft of right tibia, initial encounter for closed fracture; S82.401A - Unspecified fracture of shaft of right fibula, initial encounter for closed fracture (2) Anemia Current visit: Yes Status: Acute Category: Medical Code(s): D64.9 - Anemia, unspecified (3) Hypertension Current visit: Yes Status: Chronic Category: Medical Code(s): I10 - Essential (primary) hypertension - Assessment and plan all Dx Assessment and Plan for all problems:: Saw patient, agree with above note.
[2018-02-27 08:39] LABS: Basophils # 0.1 K/mm3 (0-0.2); Basophils % 0.7 % (0.1-2.0); Eosinophils % 0.5 % (0.1-12.0); Hematocrit 28.4 % (37.0-47.0); Lymphocytes # 1.4 K/mm3 (0.7-4.5); Lymphocytes % 21.4 % (10-50); Mean Corpuscular HGB Conc 32.2 g/dL (31.8-35.4); Mean Corpuscular Hemoglobin 33.3 pg (27.0-31.2); Mean Corpuscular Volume 103.7 fl (81-99); Mean Platelet Volume 9.6 fl (7.4-10.4); Monocytes # 0.6 K/mm3 (0.1-1.0); Monocytes % 8.5 % (1.7-9.3); Neutrophils # 4.6 K/mm3 (1.8-7.8); Neutrophils % 68.9 % (37.0-80.0); Platelet Count 109 K/mm3 (142-424); Red Blood Count 2.74 M/mm3 (4.20-5.40); Red Cell Distribution Width 23.7 % (11.5-17.5); White Blood Count 6.7 K/mm3 (4.8-10.8)
--- NOTE | 2018-02-27 08:51 | Progress Note ---
Subjective Date: 02/27/18 Time: 08:00 Principal diagnosis: Fracture tibia and fibula, right leg PN: Obj Ex Vital signs: Temp Pulse Resp BP Pulse Ox 98.2 F 80 17 126/52 L 92 L 02/27/18 08:00 02/27/18 08:00 02/27/18 08:00 02/27/18 08:00 02/27/18 08:00 Narrative: Laboratory Results - last 24 hr 02/26/18 05:25: Ferritin 188 02/26/18 09:30: Blood Type A Positive, Antibody Screen Negative, Crossmatch (AHG) See Detail 02/26/18 09:55: Blood Type Confirm A Positive 02/26/18 18:01: Hgb 10.3 L D, Hct 30.5 L - Urinary Catheter Management Padron Cath placed during this visit: yes Urethral indwelling: No Insertion date: 02/25/18 Insertion time: 17:10 Progress Note: A&P (1) Fracture of right tibia and fibula Status: Acute Current Visit: Yes (2) Anemia Status: Acute Current Visit: Yes (3) Hypertension Status: Chronic Current Visit: Yes
[2018-02-27 08:57] LABS: Hemoglobin 9.2 g/dL (12.2-16.2)
--- NOTE | 2018-02-27 09:33 | Discharge Summary ---
General - General Admission date:: 02/25/18 <Sadiq Valenzuela - 02/27/18 10:05> 02/25/18 <Shelby Eaton - 02/27/18 09:38> Discharge date: 02/27/18 <Shelby Eaton - 02/27/18 09:38> HPI HPI: Ms Quezada is an 82 year old female with a history of HTN who presented to [facility] ER via ambulance after a fall at home resulting in fracture of the right lower leg. Xray confirmed fracture of the tibia and fibula. Patient states she was reaching down and fell backwards. She was unable to get up even with the help of her . EMS was called and she was brought to [facility]. Patient noted that she has periodic spells where she becomes dizzy but this was not occurring at the time of her fall. She denied dizziness at the time of the fall as well as chest pain and shortness of breath. She normally walks around without any problems. At the time of the initial exam patient was comfortable after receiving morphine. She was waiting for orthopedic assessment. <Shelby Eaton - 02/27/18 09:38> Hospital Course Hospital Course: Dr. Ureña orthopedic surgeon saw the patient the evening of admission and did follow her throughout her stay. He placed a long leg soft cast on the right leg. He discussed options of care with the family and they decided to treat nonsurgically. She was admitted to [facility] with a physical therapy consult. Physical therapy did see the patient the following day. Patient was able to stand only with much assistance. Care management was consulted for disposition for rehab. Patient did have an episode in the emergency room where she became dizzy. Blood work was completed and CBC revealed a hemoglobin of 6.9 and hematocrit of 21.4. She did receive 2 units of packed red blood cells after which her hemoglobin increased to 10.3. A.m. of 01/27/2018 hemoglobin was 9.2. Anemia studies pending at discharge. To note patient stated she has been followed by [facility] for anemia with her last visit being this month. She states that blood work was drawn but does not know the results. Patient was independent with eating but needed assistance with other activities of daily living. She was voiding without problems after Padron catheter was removed. A bed was obtained at [facility] and on 01/27/2018 she was transferred to [facility] for rehabilitation. She was to be non- weightbearing on the right leg and continue with a long leg cast. She will have physical therapy and occupational therapy at [facility]. Rehab potential is good. Cognition is good. Prognosis is good. She was discharged in stable and satisfactory condition. <Shelby Eaton - 02/27/18 09:45> Objective Vital signs: Temp Pulse Resp BP Pulse Ox 98.2 F 80 17 126/52 L 92 L 02/27/18 08:00 02/27/18 08:00 02/27/18 08:00 02/27/18 08:00 02/27/18 08:00 <RuidosoSadiq - 02/27/18 10:05> Temp Pulse Resp BP Pulse Ox 98.2 F 80 17 126/52 L 92 L 02/27/18 08:00 02/27/18 08:00 02/27/18 08:00 02/27/18 08:00 02/27/18 08:00 <EatonShelby pratt - 02/27/18 09:38> Narrative: Exam Vital signs and Labs for Last 24 Hours: Temp Pulse Resp BP Pulse Ox 97.8 F 79 18 133/52 L 95 02/27/18 04:00 02/27/18 04:00 02/27/18 04:00 02/27/18 04:00 02/27/18 04:00 Laboratory Results - last 24 hr 02/26/18 05:25: Ferritin 188 02/26/18 09:30: Blood Type A Positive, Antibody Screen Negative, Crossmatch (AHG) See Detail 02/26/18 09:55: Blood Type Confirm A Positive 02/26/18 18:01: Hgb 10.3 L D, Hct 30.5 L I & O for Last 24 hours: Intake & Output 02/24/18 02/25/18 02/26/18 02/27/18 11:59 11:59 11:59 11:59 Intake Total 1480 / 1480 869 / 869 Output Total 790 / 790 1225 / 1225 Balance 690 / 690 -356 / -356 Weight 125 lb 133 lb - Constitutional no acute distress Comments: Appears comfortable lying in bed. Assisted in preparation for breakfast - *Routine Respiratory Exam Present: CTA bilaterally - *Routine Cardiovascular Exam Present: RRR - *Routine Abdominal Exam Present: soft, normoactive bowel sounds. Absent: tenderness - *Routine Extremities Exam Absent: edema, calf tenderness Comments: Patient right leg and long leg cast. Toes are warm and freely movable - *Routine Neurological Exam Present: alert, oriented X3 Assessment and Plan (1) Fracture of right tibia and fibula Current visit: Yes Status: Acute Qualifiers: Encounter type: initial encounter Fracture type: closed Qualified Code(s): S82.201A - Unspecified fracture of shaft of right tibia, initial encounter for closed fracture; S82.401A - Unspecified fracture of shaft of right fibula, initial encounter for closed fracture Category: Medical Code(s): S82.201A - Unspecified fracture of shaft of right tibia, initial encounter for closed fracture; S82.401A - Unspecified fracture of shaft of right fibula, initial encounter for closed fracture (2) Anemia Current visit: Yes Status: Acute Category: Medical Code(s): D64.9 - Anemia, unspecified (3) Hypertension Current visit: Yes Status: Chronic Category: Medical Code(s): I10 - Essential (primary) hypertension - Assessment and plan all Dx Assessment and Plan for all problems:: Anemia studies are pending. Care management working on charge planning with possible rehab at [facility]. <Sadiq Valenzuela - Last Filed: 02/27/18 09:00> Exam Vital signs and Labs for Last 24 Hours: Temp Pulse Resp BP Pulse Ox 98.2 F 80 17 126/52 L 92 L 02/27/18 08:00 02/27/18 08:00 02/27/18 08:00 02/27/18 08:00 02/27/18 08:00 Laboratory Results - last 24 hr 02/26/18 05:25: Ferritin 188 02/26/18 09:30: Blood Type A Positive, Antibody Screen Negative, Crossmatch (AHG) See Detail 02/26/18 09:55: Blood Type Confirm A Positive 02/26/18 18:01: Hgb 10.3 L D, Hct 30.5 L 02/27/18 08:30: WBC 6.7, RBC 2.74 L D, Hgb 9.2 L D, Hct 28.4 L, MCV 103.7 H, MCH 33.3 H, MCHC 32.2, RDW 23.7 H D, Plt Count 109 L D, MPV 9.6, Neut % (Auto) 68.9, Lymph % (Auto) 21.4, Summers % (Auto) 8.5, Eos % (Auto) 0.5, Baso % (Auto) 0.7, Neut # (Auto) 4.6, Lymph # (Auto) 1.4, Summers # (Auto) 0.6, Eos # (Auto) 0.0, Baso # (Auto) 0.1 I & O for Last 24 hours: Intake & Output 02/24/18 02/25/18 02/26/18 02/27/18 11:59 11:59 11:59 11:59 Intake Total 1480 / 1480 989 / 989 Output Total 790 / 790 1475 / 1475 Balance 690 / 690 -486 / -486 Weight 125 lb 133 lb Assessment and Plan (1) Fracture of right tibia and fibula Current visit: Yes Status: Acute Qualifiers: Encounter type: initial encounter Fracture type: closed Qualified Code(s): S82.201A - Unspecified fracture of shaft of right tibia, initial encounter for closed fracture; S82.401A - Unspecified fracture of shaft of right fibula, initial encounter for closed fracture Category: Medical Code(s): S82.201A - Unspecified fracture of shaft of right tibia, initial encounter for closed fracture; S82.401A - Unspecified fracture of shaft of right fibula, initial encounter for closed fracture (2) Anemia Current visit: Yes Status: Acute Category: Medical Code(s): D64.9 - Anemia, unspecified (3) Hypertension Current visit: Yes Status: Chronic Category: Medical Code(s): I10 - Essential (primary) hypertension <Shelby Eaton - 02/27/18 09:45> Results Completed studies during hospitalization [Text1]: 02/25/2018 x-ray of tibia and fibula IMPRESSION: Comminuted mildly displaced proximal tibia fracture with nondisplaced proximal fibular fracture <Shelby Eaton - 02/27/18 09:45> Labs on day of discharge: Labs from last 24 hours 02/27/18 02/26/18 02/26/18 08:30 18:01 09:55 WBC 6.7 RBC 2.74 L D Hgb 9.2 L D 10.3 L D Hct 28.4 L 30.5 L MCV 103.7 H MCH 33.3 H MCHC 32.2 RDW 23.7 H D Plt Count 109 L D MPV 9.6 Neut % (Auto) 68.9 Lymph % (Auto) 21.4 Summers % (Auto) 8.5 Eos % (Auto) 0.5 Baso % (Auto) 0.7 Neut # (Auto) 4.6 Lymph # (Auto) 1.4 Summers # (Auto) 0.6 Eos # (Auto) 0.0 Baso # (Auto) 0.1 Blood Type Blood Type Confirm A Positive Antibody Screen Crossmatch ([facility]) 02/26/18 09:30 WBC RBC Hgb Hct MCV MCH MCHC RDW Plt Count MPV Neut % (Auto) Lymph % (Auto) Summers % (Auto) Eos % (Auto) Baso % (Auto) Neut # (Auto) Lymph # (Auto) Summers # (Auto) Eos # (Auto) Baso # (Auto) Blood Type A Positive Blood Type Confirm Antibody Screen Negative Crossmatch ([facility]) See Detail <Sadiq Valenzuela - 02/27/18 10:05> Labs from last 24 hours 02/27/18 02/26/18 02/26/18 08:30 18:01 09:55 WBC 6.7 RBC 2.74 L D Hgb 9.2 L D 10.3 L D Hct 28.4 L 30.5 L MCV 103.7 H MCH 33.3 H MCHC 32.2 RDW 23.7 H D Plt Count 109 L D MPV 9.6 Neut % (Auto) 68.9 Lymph % (Auto) 21.4 Summers % (Auto) 8.5 Eos % (Auto) 0.5 Baso % (Auto) 0.7 Neut # (Auto) 4.6 Lymph # (Auto) 1.4 Summers # (Auto) 0.6 Eos # (Auto) 0.0 Baso # (Auto) 0.1 Ferritin Blood Type Blood Type Confirm A Positive Antibody Screen Crossmatch ([facility]) 02/26/18 02/26/18 09:30 05:25 WBC RBC Hgb Hct MCV MCH MCHC RDW Plt Count MPV Neut % (Auto) Lymph % (Auto) Summers % (Auto) Eos % (Auto) Baso % (Auto) Neut # (Auto) Lymph # (Auto) Summers # (Auto) Eos # (Auto) Baso # (Auto) Ferritin 188 Blood Type A Positive Blood Type Confirm Antibody Screen Negative Crossmatch (AHG) See Detail <Shelby Eaton - 02/27/18 09:45> DS: Diagnosis - Discharge Diagnosis (1) Fracture of right tibia and fibula Status: Acute (2) Anemia Status: Acute (3) Hypertension Status: Chronic (4) Anxiety Status: Chronic <NicolasSadiq 02/27/18 10:05> (1) Fracture of right tibia and fibula Status: Acute (2) Anemia Status: Acute (3) Hypertension Status: Chronic <Shelby Eaton 02/27/18 09:39> Discharge Plan - Patient Discharge Instructions ACTIVITY: Continue current activity <Shelby Eaton 02/27/18 09:38> DIET: continue same diet <Shelby Eaton 02/27/18 09:38> Patient Instructions: Anemia, DI for Shinbone Fracture <NicolasFridaSadiq 02/27/18 10:05> Forms: <NicolasFridaSadiq 02/27/18 10:05> - Follow up Plan Follow up with: Naima Mckeon [Primary Care Provider] - 1 month <RuidosoSadiq bowers 02/27/18 10:05> Disposition: Xfer Inpatient Rehab Fac <NicolasSadiq 02/27/18 10:05> Home Medications: Home Medications Medication Instructions Recorded Confirmed Type Carvedilol [Carvedilol 3.125mg Tab] 3.125 mg PO BID 02/25/18 02/25/18 History Furosemide [Lasix 20mg tab] 20 mg PO DAILY 02/25/18 02/25/18 History Omeprazole [Omeprazole 40mg 40 mg PO DAILY 02/25/18 02/25/18 History Capsule] RX: Hydralazine HCl [Hydralazine 25 mg PO BID 02/25/18 02/26/18 History HCl 25mg Tablet] RX: Losartan Potassium 50 mg PO BID 02/25/18 02/25/18 History RX: Pravastatin Sodium [Pravachol 40 mg PO HS 02/25/18 02/25/18 History 40mg Tablet] RX: Sodium Chloride 1 gm PO BID 02/26/18 02/26/18 History Vit C/Vit E/Lutein/Min/[place]-3 1 each PO BID 02/26/18 02/26/18 History [Ocuvite Softgel] <Sadiq Valenzuela - 02/27/18 10:05> Prescriptions/Medication Reconciliation: New RX: Hydrocod/Acet 5/325 mg [[place]on 5/325mg tablet] 1 tab PO Q4HP PRN #18 tab PRN Reason: Moderate To Severe Pain Continue Omeprazole [Omeprazole 40mg Capsule] 40 mg PO DAILY RX: Losartan Potassium 50 mg PO BID RX: Hydralazine HCl [Hydralazine HCl 25mg Tablet] 25 mg PO BID Furosemide [Lasix 20mg tab] 20 mg PO DAILY Carvedilol [Carvedilol 3.125mg Tab] 3.125 mg PO BID RX: Pravastatin Sodium [Pravachol 40mg Tablet] 40 mg PO HS RX: Gabapentin [Gabapentin 300mg Cap] 300 mg PO BID #60 cap RX: Sodium Chloride 1 gm PO BID Vit C/Vit E/Lutein/Min/[place]-3 [Ocuvite Softgel] 1 each PO BID Changed RX: ALPRAZolam [Xanax 0.25mg tab] 0.25 mg PO BIDP PRN #60 tab PRN Reason: Anxiety <Sadiq Valenzuela - 02/27/18 10:05>
[2018-02-27 16:13] LABS: Folate 13.1 ng/mL (>3.0)
== END 2018-02-27 12:20 ==
LOC: ER 11:09 → 2ND 11:09
PROVIDERS: ADMIT Family Medicine; ATTEND Family Medicine
CPT/HCPCS: 36415; 73590; 80053; 82607; 82728; 82746; 83540; 83550; 85014; 85018; 85025; 86850; 93005; 96365; 96375; 96376; 97162; 97165; 97530; 99284; G0378; J2405; P9016

== ENCOUNTER → 2019-12-18 08:58 | Outpatient (CLI) | payer MEDICARE, OTHER, SELFPAY ==
[2019-12-18 13:48] LABS: Basophils # 0.1 K/mm3 (0-0.2); Basophils % 1.8 % (0.1-2.0); Eosinophils # 0.3 K/mm3 (0.0-0.4); Eosinophils % 6.7 % (0.1-12.0); Hematocrit 31.3 % (37.0-47.0); Lymphocytes # 1.7 K/mm3 (0.7-4.5); Lymphocytes % 33.1 % (10-50); Mean Corpuscular HGB Conc 32.1 g/dL (31.8-35.4); Mean Corpuscular Hemoglobin 39.4 pg (27.0-31.2); Mean Corpuscular Volume 122.7 fl (81-99); Monocytes # 0.4 K/mm3 (0.1-1.0); Neutrophils # 2.6 K/mm3 (1.8-7.8); Neutrophils % 51.4 % (37.0-80.0); Platelet Count 193 K/mm3 (142-424); Red Blood Count 2.55 M/mm3 (4.20-5.40); Red Cell Distribution Width 17.9 % (11.5-17.5); White Blood Count 5.1 K/mm3 (4.8-10.8)
[2019-12-18 14:56] LABS: Iron 83 ug/dL (37-170)
[2019-12-18 15:03] LABS: Vitamin B12 900 pg/mL (239-931)
[2019-12-18 15:07] LABS: Total Iron Binding Capacity 208 ug/dL (265-497)
[2019-12-18 15:33] LABS: Ferritin 166 ng/ml (11.1-264)
== END ==
PROVIDERS: PCP Family Medicine; Visit Provider Nurse Practitioner Family
DX: D46.9 Myelodysplastic syndrome, unspecified (principal); K90.9 Intestinal malabsorption, unspecified; E53.8 Deficiency of other specified B group vitamins
CPT/HCPCS: 36415; 82607; 82728; 83540; 83550; 85025

== ENCOUNTER → 2020-04-14 10:20 | Outpatient (CLI) | payer MEDICARE, OTHER, SELFPAY ==
[2020-04-14 14:32] LABS: Basophils # 0.1 K/mm3 (0-0.2); Basophils % 2.9 % (0.1-2.0); Eosinophils # 0.3 K/mm3 (0.0-0.4); Eosinophils % 6.6 % (0.1-12.0); Hematocrit 29.7 % (37.0-47.0); Hemoglobin 9.7 g/dL (12.2-16.2); Iron 77 ug/dL (37-170); Lymphocytes # 1.6 K/mm3 (0.7-4.5); Lymphocytes % 31.7 % (10-50); Mean Corpuscular HGB Conc 32.8 g/dL (31.8-35.4); Mean Corpuscular Volume 122.3 fl (81-99); Mean Platelet Volume 8.6 fl (7.4-10.4); Monocytes # 0.4 K/mm3 (0.1-1.0); Monocytes % 7.6 % (1.7-9.3); Neutrophils # 2.5 K/mm3 (1.8-7.8); Neutrophils % 51.2 % (37.0-80.0); Platelet Count 206 K/mm3 (142-424); Red Blood Count 2.43 M/mm3 (4.20-5.40); Red Cell Distribution Width 19.2 % (11.5-17.5); White Blood Count 4.9 K/mm3 (4.8-10.8)
[2020-04-14 14:35] LABS: Mean Corpuscular Hemoglobin 40.1 pg (27.0-31.2)
[2020-04-14 14:41] LABS: Total Iron Binding Capacity 201 ug/dL (265-497)
[2020-04-14 15:08] LABS: Ferritin 152 ng/ml (11.1-264)
[2020-04-14 16:40] LABS: Vitamin B12 362 pg/mL (239-931)
== END ==
PROVIDERS: Visit Provider Nurse Practitioner Family
DX: D64.9 Anemia, unspecified (principal); K90.9 Intestinal malabsorption, unspecified; E53.8 Deficiency of other specified B group vitamins
CPT/HCPCS: 36415; 82607; 82728; 83540; 83550; 85025

== ENCOUNTER 2023-10-05 12:37 | Inpatient (IN) | payer MEDICARE, OTHER, SELFPAY ==
[2023-10-05] VITALS (26 sets, daily range): BP systolic 92–142; BP diastolic 43–74; PULSE 63–97; RESP 12–20; TEMP 35.6–36.6; O2SAT 97–100; BMI 16.2; BMI 15.7
--- NOTE | 2023-10-05 12:50 | XR_ITS ---
FINAL REPORT CLINICAL HISTORY: dyspnea COMPARISON: 08/02/2023 FINDINGS: SINGLE-VIEW CHEST There is cardiomegaly with pulmonary vascular congestion. The mediastinum is normal. Small to moderate pleural effusions are identified. There are worsening pulmonary opacities consistent with edema or pneumonia. There is worsening bibasilar atelectasis or pneumonia. There is no pneumothorax. IMPRESSION: Worsening appearance of the chest. Reviewed, Interpreted and Dictated by Jose Lin III, MD Transcribed by Shelby Mabry Authenticated and [facility]
--- NOTE | 2023-10-05 12:50 | CT_ITS ---
FINAL REPORT CLINICAL HISTORY: [facility] COMPARISON: 09/28/2023 FINDINGS: Axial images of the head were obtained without contrast. Coronal reformatted images were also obtained. This study was performed with techniques to keep radiation doses as low as reasonably achievable (ALARA). Individualized dose reduction techniques using automated exposure control or adjustment of mA and/or kV according to the patient''s size were employed. There is generalized age-appropriate atrophy. Periventricular low-attenuation areas are seen consistent with moderate chronic ischemic changes. There is no evidence of intracranial hemorrhage or mass. There is no evidence of acute infarct. There is no evidence of shift of the midline structures. No skull abnormality is seen on the bone window images. IMPRESSION: Atrophy and moderate periventricular chronic ischemic changes. No acute intracranial abnormality identified. Reviewed, Interpreted and Dictated by Jose Lin III, MD Transcribed by Shelby Mabry Authenticated and [facility]
--- NOTE | 2023-10-05 12:51 | ED_ITS ---
Discharge Plan Disposition Patient Disposition: Admitted Prescriptions Prescriptions: No Action losartan 50 MG Tablet 50 mg PO BID pravastatin 40 MG Tablet 40 mg PO HS hydralazine 25 MG Tablet 25 mg PO BID Rx Instructions: PRESCRIPTION IS WRITTEN WITH THREE TIMES A DAY DIRECTIONS, BUT PT TAKES TWICE A DAY omeprazole 40 MG Capsule.Dr 40 mg PO DAILY carvedilol 3.125 MG Tablet 3.125 mg PO BID furosemide 20 MG Tablet 20 mg PO DAILY sodium chloride 1 GM Tablet 1 g PO BID vit C-vit [id number] 1 EACH Capsule 1 ea PO BID hydrocodone-acetaminophen 1 TAB tablet 1 tab PO Q4HP PRN (Reason: Moderate To Severe Pain) Qty: 18 0RF alprazolam 0.25 MG tablet 0.25 mg PO BIDP PRN (Reason: Anxiety) Qty: 60 0RF gabapentin 300 MG capsule 300 mg PO BID Qty: 60 0RF Referrals Follow up/Referrals: Santana Lee MD [Primary Care Provider] - See instructions Clinical Impressions Clinical Impression: Acute encephalopathy, Multifocal pneumonia, Anemia, chronic disease, MDS (myelodysplastic syndrome) Instructions Patient Instructions: DI for Altered Mental Status Discharge ED Provider: Daya Donnelly General Adult HPI General Chief complaint: Altered Mental Status Stated complaint: altered mental status Time Seen by Provider: 10/05/23 12:39 Mode of Arrival: EMS Source of Information: EMS Limitations: No Limitations Description of Symptoms (Recalled from ER Triage Doc. by RN): pt arrives via EMS from [place]. EMS reports they called for AMS. per EMS the pt is normally A&O x4. However, the pt is nonverbal at this time and I am unable to get a response to answer triage questions. History of Present Illness HPI narrative: Patient is an 88-year-old female who is a [facility] resident brought in today for altered mental status. Per EMS patient is normally alert and oriented. Today however she has not been tolerating like she normally does. History is severely limited as the patient is acutely encephalopathic. Family not at the bedside initially. Related Data Home Medications Medication Instructions Recorded Confirmed carvedilol 3.125 mg tablet 3.125 mg PO BID Hypertension 02/25/18 02/25/18 furosemide 20 mg tablet 20 mg PO DAILY Fluid 02/25/18 02/25/18 hydralazine 25 mg tablet 25 mg PO BID HYPERTENSTION 02/25/18 02/26/18 losartan 50 mg tablet 50 mg PO BID Hypertension 02/25/18 02/25/18 omeprazole 40 mg capsule,delayed 40 mg PO DAILY GERD 02/25/18 02/25/18 release pravastatin 40 mg tablet 40 mg PO HS Cholesterol 02/25/18 02/25/18 sodium chloride 1 gram tablet 1 g PO BID HYPONATREMIA 02/26/18 02/26/18 vit C 150 mg-vit E 30 unit-lutein 1 ea PO BID Supplement 02/26/18 02/26/18 5 [id number] 3 150 mg capsule Previous Rx's Medication Instructions Recorded alprazolam 0.25 mg tablet 0.25 mg PO BIDP PRN Anxiety #60 02/27/18 tabs gabapentin 300 mg capsule 300 mg PO BID Pain #60 caps 02/27/18 hydrocodone 5 mg-acetaminophen 325 1 tab PO Q4HP PRN Moderate To 02/27/18 mg tablet Severe Pain #18 tabs Allergies Allergy/AdvReac Type Severity Reaction Status Date / Time penicillin G Allergy Intermediate Verified 02/25/18 11:54 [facility] Disclaimer: The information contained in this section may have been updated after the patient was seen, as this information can be updated by other users. Social History Smoking Status: Never smoker alcohol intake: never current occupational status: retired Travel in the last 8 weeks: None household members: spouse housing: house current occupational exposures/hazards: No caffeine: Yes ROS Obtained: Yes All systems reviewed & no additional complaints except as documented Physical Exam General General appearance: alert and in no apparent distress Respiratory Respiratory exam: Present normal lung sounds bilaterally; Absent respiratory distress Cardiovascular Cardiovascular exam: Present regular rate and normal rhythm Neurological Exam Neurological exam: Absent alert or oriented X3 Expanded Neurological Exam Coma scale eye opening: To voice Coma scale motor response: Localizes to pain Coma scale verbal response: Incomprehensible Coma scale total: 10 Medical Decision Making Jose Inquiry Pt receiving controlled substance: No Vital Signs: 10/05/23 12:34 10/05/23 12:45 10/05/23 13:00 Temperature 98 F Temperature Source Rectal Pulse Rate 76 77 Pulse Rate [Left] 97 H Respiratory Rate 12 15 13 Blood Pressure 106/43 L Blood Pressure [Right Arm] 104/60 L Blood Pressure Mean Blood Pressure Mean [Right Arm] 74 Blood Pressure Source [Right Arm] Automatic Cuff Blood Pressure Position [Right Arm] Supine 02 Sat by Pulse Oximetry 100 99 100 Oxygen Delivery Method Nasal Cannula Nasal Cannula Oxygen Flow Rate (LPM) 2 2 10/05/23 13:30 10/05/23 14:01 10/05/23 14:30 Temperature Temperature Source Pulse Rate 70 63 64 Pulse Rate [Left] Respiratory Rate 16 12 12 Blood Pressure 124/67 122/74 113/57 L Blood Pressure [Right Arm] Blood Pressure Mean 90 90 Blood Pressure Mean [Right Arm] Blood Pressure Source [Right Arm] Blood Pressure Position [Right Arm] 02 Sat by Pulse Oximetry 100 100 100 Oxygen Delivery Method Nasal Cannula Oxygen Flow Rate (LPM) 2 Lab Data Lab results reviewed: Yes I reviewed the patient's lab results. Lab Results 10/05/23 12:39: WBC 9.1, RBC 1.62 L*, Hgb 6.7 L*, Hct 20.9 L*, MCV 128.5 H, MCH 41.5 H*, MCHC 32.3, RDW 20.0 H, Plt Count 215, MPV 8.6, Neut % (Auto) 80.6 H, L ymph % (Auto) 9.9 L, [place] % (Auto) 4.1, Eos % (Auto) 5.2, Baso % (Auto) 0.3, Neut # (Auto) 7.3, Lymph # (Auto) 0.9, [place] # (Auto) 0.4, Eos # (Auto) 0.5 H, Baso # (Auto) 0.0, Sodium 132 L, Potassium 3.1 L, Chloride 76 L, Carbon Dioxide 56 H*, Anion Gap 3.1 L, BUN 30 H, Creatinine 0.70, Estimated Creat Clear 26, Estimated GFR 79, Est GFR ( Amer) 95, Glucose 104 H, Calcium 8.3 L, Total Bilirubin 0.6, AST 41 H, ALT 26, Alkaline Phosphatase 82, Troponin I 0.06 H, T otal Protein 6.0 L, Albumin 2.8 L, Globulin 3.2, Albumin/Globulin Ratio 0.9 L, Urine Color Yellow, Urine Appearance Clear, Urine pH 6.0, Ur Specific [place] 1.010, Urine Protein 1+, Urine Glucose (UA) Negative, Urine Ketones Negative, Urine Blood Negative, Urine Nitrate Negative, Urine Bilirubin Negative, Urine Urobilinogen 0.2, Ur Leukocyte Esterase Negative, Urine RBC Occasional, Urine WBC Occasional, Ur Squamous Epith Cells 3-5, Urine Bacteria Trace, Hyaline Casts 3-5 10/05/23 12:58: VBG pH 7.44 H, VBG pCO2 82.9 H, VBG pO2 40.8 H, VBG HCO3 54.5 H, VBG Total CO2 57.1 H, VBG O2 Saturation 72.3 H, VBG Base Excess 30.3 H, VBG Lactic Acid 1.2 10/05/23 12:39 10/05/23 12:39 Orders (Tests/Meds): ED MEDICATIONS Generic Name Dose Route Start Last Admin Trade Name Freq PRN Reason Stop Dose Admin Sodium Chloride 250 mls @ 25 mls/hr 10/05/23 14:45 Sod Chlor 0.9% 250ml Bag IV 10/06/23 14:44 .Q10H FREDDY Azithromycin 500 mg/ Sodium 250 mls @ 250 mls/hr 10/05/23 15:00 Chloride IV 10/05/23 15:59 ONCE ONE Vancomycin HCl 750 mg/ Sodium 250 mls @ 125 mls/hr 10/05/23 15:00 Chloride IV 10/05/23 16:59 ONCE ONE Miscellaneous 1 each 10/05/23 14:45 Vancomycin Consult Request NOTAPPLIC 11/04/23 14:44 CONSULT PHARMACY [facility] Discontinued Medications Generic Name Dose Route Start Last Admin Trade Name Freq PRN Reason Stop Dose Admin Lactated Ringer's 1,000 mls @ 999 mls/hr 10/05/23 13:00 10/05/23 13:32 Lactated Ringer's 1000 Ml Bag IV 10/05/23 14:00 999 mls/hr .Q1H1M FREDDY Administration Cefepime HCl 1 gm/ Sodium 50 mls @ 100 mls/hr 10/05/23 14:43 Chloride IV 10/05/23 14:44 ONCE ONE ORDERS Category Date Time Status Transfuse RBC's [Red Blood Cells] Stat BBK 10/05/23 14:43 Ordered Type and Screen Stat BBK 10/05/23 14:[address] head/brain wo con Stat Cat Scan 10/05/23 12:50 Completed CXR --portable [XR chest portable] Stat Exams 10/05/23 12:50 Taken CBC w/Auto Diff [Complete Blood Count Auto Diff] Stat Lab 10/05/23 12:39 Completed CMP [Comprehensive Metabolic Panel] Stat Lab 10/05/23 12:39 Completed Full Resp Panel w/COVID ([facility]) Routine Lab 10/05/23 14:46 Received Trop I [Troponin I] Stat Lab 10/05/23 12:39 Completed Troponin I Q3H Lab 10/05/23 16:00 Ordered Troponin I Q3H Lab 10/05/23 19:00 Ordered UA [Urinalysis and Microscopic] Stat Lab 10/05/23 12:39 Completed Blood Culture Stat Micro 10/05/23 13:12 Received Venous Blood Gas Stat RT 10/05/23 12:58 Completed Medical Decision Narrative: 88-year-old [facility] from [facility] for acute encephalopathy differential includes intracranial pathology and trauma, hypercapnic respiratory failure, infectious etiologies metabolic etiologies considered. Straight cath urine will be performed. Family is not at the bedside that we have been told patient is DNR. She has a GCS of 10 at the moment. Reassessment 2:57 PM patient's family at the bedside had extensive discussion with them they said that 1 week ago she was at her normal state of health awake alert oriented answering questions spending time with family and that she had a sudden decline requiring hospitalization at [place] she was ultimately transferred to [facility] for concern for possible need for thoracentesis ultimately they did not do that. I reviewed the records she was treated for community-acquired pneumonia and had improvement in her symptoms and was ultimately transferred to [place] and was a new and happened there. Was doing well yesterday according to states that they were outside talking but over the last 24 hours she had a significant decline in her symptoms. Family is concerned that they had discontinued her oxygen and that she may have had an anoxic brain injury but no definitive history or evidence to suggest that. Patient did have multifocal airspace disease on my personal interpretation and reviewing [facility]'s chest x-ray she was treated for pneumonia with Rocephin azithromycin with improvement of her symptoms while she was hospitalized. X-ray today is very similar to recent x-ray showing multifocal bilateral airspace disease my personal interpretation. Will escalate antibiotics including vancomycin and cefepime azithromycin. Cultures are pending. No evidence of urinary tract infection or other metabolic cause of this. Unlikely to be acute encephalitis or meningitis. CT scan of the patient's head performed which I first interpreted shows no acute abnormalities as well. I had an extensive discussion further with the family about this and told him that I am very concerned that there is no obvious definable and reversible cause of her symptoms and that she could be at the end of her life. I spoke with Dr. Vito Klein who will admit the patient for further evaluation and management. Admitted. She will be transfused 1 unit of blood and antibiotics have been initiated prior to being. GCS is 10 upon being admitted. Critical Care Critical Care Time Critical Care Time: Yes Attestation: On 10/05/23, the high probability of a clinically significant, sudden or life threatening deterioration of the following system(s) required my full and direct attention, intervention and personal management. The time I documented below is in addition to time spent performing reported procedures but includes the following listed in this critical care notation. Total Time Total Critical Care Time: 35
--- NOTE | 2023-10-05 12:58 | PC.NURSE ---
RT notified of VBG order
[2023-10-05 13:01] LABS: Basophils % 0.3 % (0.1-2.0); Eosinophils # 0.5 K/mm3 (0.0-0.4); Eosinophils % 5.2 % (0.1-12.0); Lymphocytes # 0.9 K/mm3 (0.7-4.5); Lymphocytes % 9.9 % (10-50); Mean Corpuscular HGB Conc 32.3 g/dL (31.8-35.4); Mean Corpuscular Volume 128.5 fl (81-99); Mean Platelet Volume 8.6 fl (7.4-10.4); Monocytes # 0.4 K/mm3 (0.1-1.0); Monocytes % 4.1 % (1.7-9.3); Neutrophils # 7.3 K/mm3 (1.8-7.8); Neutrophils % 80.6 % (37.0-80.0); Platelet Count 215 K/mm3 (142-424); Red Blood Count 1.62 M/mm3 (4.20-5.40); White Blood Count 9.1 K/mm3 (4.8-10.8)
[2023-10-05 13:04] LABS: Microscopic, Urine URINE MICROSCOPIC (MICROSCOPIC)
[2023-10-05 13:05] LABS: Lactate Venous 1.2 mmol/L (0.4-2.0); VBG Base Excess 30.3 mmol/L (-2.4-2.3); VBG HCO3 54.5 mmol/L (23-30); VBG Oxygen Saturation 72.3 % (50-70); VBG PH 7.44 mmol/L (7.31-7.41); VBG PO2 40.8 mmol/L (28-40); VBG Total CO2 57.1 mmol/L (23-27)
[2023-10-05 13:09] LABS: VBG PCO2 82.9 mmol/L (35-51)
[2023-10-05 13:11] LABS: Chloride 76 mmol/L (98-107)
[2023-10-05 13:12] LABS: Appearance,Urine CLEAR (Clear); Bilirubin,Urine Negative (Negative); Blood, Urine Negative (Negative); Color,Urine YELLOW (Yellow); Glucose,Urine (UA) Negative (Negative); Ketones,Urine Negative (Negative); Leukocyte Esterase,Urine Negative (Negative); Nitrate,Urine Negative (Negative); Potassium 3.1 mmoL/L (3.5-5.1); Protein,Urine 1+ (Negative); Sodium 132 mmol/L (136-145); Urobilinogen,Urine 0.2 EU/dl (0.2)
[2023-10-05 13:14] LABS: Alanine Aminotransferase 26 U/L (12-78); Alkaline Phosphatase 82 U/L (38-126); Aspartate Amino Transferase 41 U/L (14-36); Bilirubin,Total 0.6 mg/dl (0.2-1.3); Blood Urea Nitrogen 30 mg/dl (7-17); Creatinine Clearance Estimated 26 mL/min (50-200); Estimated Glomerular Filt Rate 79 ml/min (>60); GFR (African American) 95 ML/MIN (>60)
[2023-10-05 13:15] LABS: Albumin Level 2.8 g/dl (3.5-5.0); Albumin/Globulin Ratio 0.9 (1.1-1.8); Calcium 8.3 mg/dl (8.4-10.2); Globulin 3.2 g/dL (1.3-3.2); Glucose 104 mg/dl (74-100)
[2023-10-05 13:16] LABS: Mean Corpuscular Hemoglobin 41.5 pg (27.0-31.2)
[2023-10-05 13:17] LABS: Hematocrit 20.9 % (37.0-47.0); Hemoglobin 6.7 g/dL (12.2-16.2)
--- NOTE | 2023-10-05 13:17 | PC.NURSE ---
VBG results, Andrzej Malcolm aware
--- NOTE | 2023-10-05 13:18 | PC.NURSE ---
critical H&H, Dr. Donnelly aware
--- NOTE | 2023-10-05 13:24 | PC.NURSE ---
pt in radiology
[2023-10-05 13:27] LABS: Troponin I 0.06 ng/ml (0.00-0.034)
[2023-10-05 13:29] LABS: Anion Gap 3.1 mEq/L (5-15)
[2023-10-05 13:30] LABS: Carbon Dioxide 56 mmol/L (22.0-30.0)
[2023-10-05] MEDS: LACTATED RINGERS 1000ML 1,000 ML 999 ML IV (13:32)
[2023-10-05 13:39] LABS: Bacteria,Urine Trace /lpf; RBC,Urine Occasional #/hpf (0-3); WBC,Urine Occasional #/hpf (0-3)
--- NOTE | 2023-10-05 14:31 | PC.NURSE ---
Dr. Donnelly at [facility]
--- NOTE | 2023-10-05 14:45 | PC.NURSE ---
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 Klein
--- NOTE | 2023-10-05 14:48 | PC.NURSE ---
notified lab of need for type and screen on pt.
--- NOTE | 2023-10-05 14:49 | PC.NURSE ---
BONNIE MOY speaking with Dr. Donnelly
[2023-10-05 14:53] LABS: Adenovirus,PCR Not Detected (NotDetected); Bordetella Pertussis Not Detected (NotDetected); Chlamydophila Pneumoniae, PCR Not Detected (NotDetected); Coronavirus 19, PCR Not Detected (NotDetected); Coronavirus 229E Not Detected (NotDetected); Coronavirus NL63 Not Detected (NotDetected); Coronavirus OC43 Not Detected (NotDetected); Coronovirus HKU1,PCR Not Detected (NotDetected); Human Metapneumovirus Not Detected (NotDetected); Influenza A, PCR Not Detected (NotDetected); Influenza AH1, 2009 Not Detected (NotDetected); Influenza AH1, PCR Not Detected (NotDetected); Influenza AH3,PCR Not Detected (NotDetected); Influenza B, PCR Not Detected (NotDetected); Mycoplasma Pneumoniae, PCR Not Detected (NotDetected); Parainfluenza 1, PCR Not Detected (NotDetected); Parainfluenza 2, PCR Not Detected (NotDetected); Parainfluenza 3, PCR Not Detected (NotDetected); Parainfluenza 4, PCR Not Detected (NotDetected); Respiratory Syncytial Virus Not Detected (NotDetected); Rhinovirus/Enterovirus Not Detected (NotDetected)
[2023-10-05] MEDS: CEFEPIME HCL 1 GM in 0.9 % SODIUM CHLORIDE 50 ML IV (15:04)
--- OUTSIDE RECORDS SUMMARY | 2023-10-05 15:09 | XMS_ITS | Continuity of Care Document ---
Author Name Unknown Address [address], [place] [id number] Organization [facility] Phone Care Team Providers Care Training And Development Rep Name Role Phone RAQUEL GOMEZ Unavailable RAQUEL GOMEZ Admitting DECLINED, PCP Primary Care Unavailable RAQUEL GOMEZ Primary Attending [phone] ALLERGIES AND ADVERSE REACTIONS ALLERGIES AND ADVERSE REACTIONS Code System Allergy Substance Adverse Reaction Date Reaction (Severity) Comment Status Reported By Updated By [id number] RXNorm PENICILLIN Adverse reaction to substance Not Specified active [id number] on September 28, 2023 8:59:28 PM UT RESULTS Patient: FAMILIA Kline Date of : [birth year] LABORATORY RESULTS ORDER 200: COMP METABOLIC PA ANDREW (LOINC: 67357-2) ORDER DATE: September 28, 2023 9:36:00 PM UT Specimen Source: Serum/Plasm a Specimen Type: Acellular blo od (serum or plasma) specimen PERFORMING LAB: [address] [id number] Result Comment: Final Result Date: September 28, 2023 10:51:00 PM UT (TECH: AC) LOINC TEST FLAG RESULT REFERENCE RANGE UPDA SHARRON BY 2951-2 Sodium [Moles/volume ] in Serum or Plasma L 134 mmol/L 136 mmol/L - 145 mmol/L September 28, 2023 10:51:00 PM UT (TECH: AC) 2823-3 Potassium [Moles/volume] in Serum or Plasma L 3.2 mmol/L 3.5 mmol/L - 5.1 mmol/L September 28, 2023 10:51:00 PM UT (TECH: AC) 2075-0 Chloride [Moles/volu me] in Serum or Plasma L 81 mmol/L 98 mmol/L - 107 mmol/L September 28, 2023 10:51:00 PM UT (TECH: AC) 8-9 Carbon dioxide, tota l [Moles/volume] in Serum or Plasma H >45 mmol/L 21 mmol/L - 32 mmol/L September 28, 2023 10:51:00 PM UT (TECH: AC) 54008-1 Anion gap 3 in Serum or Plasma N 0 September 28, 2023 10:51:00 PM UT (TECH: AC) 2345-7 Glucose [Mass/volume ] in Serum or Plasma N 105 mg/dL 70 mg/dL - 110 mg/dL September 28, 2023 10:51:00 PM UT (TECH: AC) 3094-0 Urea nitrogen [Mass/volume] in Serum or Plasma H 22 mg/dL 7 mg/dL - 18 mg/dL September 28, 2023 10:51:00 PM UT (TECH: AC) 2160-0 Creatinine [Mass/volume] in Serum or Plasma N 0.7 mg/dL 0.6 mg/dL - 1.0 mg/dL September 28, 2023 10:51:00 PM UT (TECH: AC) 3097-3 Urea nitrogen/Creatinine [Mass Ratio] in Serum or Plasma H 31.4 Ratio 9 Ratio - 21 Ratio September 28, 2023 10:51:00 PM [facility] (TECH: AC) 43244-0 Glomerular filtratio n rate/1.73 sq M.predicted by Creatinine-based formula (MDRD) N 83 mL/min >60 September 28, 2023 10:51:00 PM UT (TECH: AC) 2885-2 Protein [Mass/volume ] in Serum or Plasma N 6.4 g/dL 6.4 g/dL - 8.2 g/dL September 28, 2023 10:51:00 PM UT (TECH: AC) 1751-7 Albumin [Mass/volume ] in Serum or Plasma L 2.4 g/dL 3.4 g/dL - 5.0 g/dL September 28, 2023 10:51:00 PM UT (TECH: AC) 90637-0 Calcium [Mass/volume ] in Serum or Plasma N 9.0 mg/dL 8.5 mg/dL - 10.1 mg/dL September 28, 2023 10:51:00 PM [facility] (TECH: AC) 50709-0 Calcium [Mass/volume ] corrected for total protein in Serum or Plasma H 10.3 mg/dL 8.5 mg/dL - 10.1 mg/dL September 28, 2023 10:51:00 PM [facility] (TECH: AC) 1975-2 Bilirubin.total [Mass/volume] in Serum or Plasma N 1.1 mg/dL 0.4 mg/dL - 1.5 mg/dL September 28, 2023 10:51:00 PM UT (TECH: AC) 1920-8 Aspartate aminotransferase [Enzymatic activity/volume] in Serum or Plasma N 27 U/L 15 U/L - 37 U/L September 28, 2023 10:51:00 PM UT (TECH: AC) 1742-6 Alanine aminotransferase [Enzymatic activity/volume] in Serum or Plasma N 26 U/L 12 U/L - 78 U/L September 28, 2023 10:51:00 PM [facility] (TECH: AC) 6768-6 Alkaline phosphatase [Enzymatic activity/volume] in Serum or Plasma N 88 U/L 53 U/L - 141 U/L September 28, 2023 10:51:00 PM UT (TECH: AC) ORDER 300: CBC AUTO W DIFF ( LOINC: 27732-0) ORDER DATE: September 28, 2023 9:36:00 PM [facility] Specimen Source: Whole Blood Specimen Type: Whole blood s ample PERFORMING LAB: [address] [id number] Result Comment: Final Result Date: September 28, 2023 10:31:00 PM UT (TECH: [employer]) LOINC TEST FLAG RESULT REFERENCE RANGE UPDA SHARRON BY 6690-2 Leukocytes [#/volume] in Blood by Automated count N 8.6 10^3/uL 4.5 10^3/uL - 11.5 10^3/uL September 28, 2023 10:31:00 PM UT (TECH: HC) 789-8 Erythrocytes [#/volume] in Blood by Automated count L 1.90 10^6/uL 4.25 10^6/uL - 5.57 10^6/uL September 28, 2023 10:31:00 PM UT (TECH: HC) 718-7 Hemoglobin [Mass/volume] in Blood LL 7.7 g/dL 12.0 g/dL - 15.7 g/dL September 28, 2023 10:31:00 PM UTC (TECH: [employer]) 13087-2 Hematocrit [Volume Fraction] of Blood LL 24.1 % 36.0 % - 47.0 % September 28, 2023 10:31:00 PM UTC (TECH: [employer]) 787-2 Erythrocyte mean corpuscular volume [Entitic volume] by Automated count H 126.8 fl 80 fl - 95 fl September 28, 2023 10:31:00 PM UTC (TECH: [employer]) 22811-5 Erythrocyte mean corpuscular hemoglobin [Entitic mass] in Blood from Fetus by Automated count H 40.5 pg 27.0 pg - 34.0 pg September 28, 2023 10:31:00 PM UTC ([employer]) 30017-8 Erythrocyte mean corpuscular hemoglobin concentration [Mass/volume] in Blood from Fetus by Automated count N 32.0 g/dL 32.0 g/dL - 36.0 g/dL September 28, 2023 10:31:00 PM UTC (TECH: [employer]) 76026-7 Platelets [#/volume] in Blood N 175 10^3/uL 150 10^3/uL - 450 10^3/uL September 28, 2023 10:31:00 PM UTC ([employer]: [employer]) 94957-3 Erythrocyte distribution width [Ratio] H 20.4 % 12.3 % - 15.1 % September 28, 2023 10:31:00 PM UTC ([employer]) 79146-3 Platelet mean volume [Entitic volume] in Blood by Automated count N 9.5 fl 7.4 fl - 10.4 fl September 28, 2023 10:31:00 PM UTC (TECH: [employer]) 25469-3 Granulocytes/100 leukocytes in Blood by Automated count H 77.6 % 40 % - 75 % September 28, 2023 10:31:00 PM UTC (TECH: [employer]) 736-9 Lymphocytes/100 leukocytes in Blood by Automated count L 7.9 % 15 % - 57 % September 28, 2023 10:31:00 PM UTC (TECH: [employer]) 5905-5 Monocytes/100 leukocytes in Blood by Automated count N 8.7 % 4.0 % - 12.0 % September 28, 2023 10:31:00 PM UTC (TECH: HC) 713-8 Eosinophils/100 leukocytes in Blood by Automated count H 4.4 % 0.0 % - 4.0 % September 28, 2023 10:31:00 PM UTC (TECH: HC) 706-2 Basophils/100 leukocytes in Blood by Automated count N 0.7 % 0.0 % - 1.0 % September 28, 2023 10:31:00 PM UTC (TECH: HC) 03793-7 Immature granulocytes [#/volume] in Blood N 0.7 % 0.0 % - 0.8 % September 27 10:31:00 PM UTC (TECH: HC) 94684-3 Granulocytes [#/volume] in Blood by Automated count N 6.70 10^3/uL September 28, 2023 10:31:00 PM UTC (TECH: HC) 731-0 Lymphocytes [#/volume] in Blood by Automated count N 0.68 10^3/uL September 28, 2023 10:31:00 PM UTC (TECH: HC) 742-7 Monocytes [#/volume] in Blood by Automated count N 0.75 10^3/uL September 28, 2023 10:31:00 PM UTC (TECH: HC) 711-2 Eosinophils [#/volume] in Blood by Automated count N 0.38 10^3/uL September 28, 2023 10:31:00 PM UTC (TECH: HC) 704-7 Basophils [#/volume] in Blood by Automated count N 0.06 10^3/uL September 28, 2023 10:31:00 PM UTC (TECH: HC) 58339-6 Immature granulocytes [#/volume] in Blood N 0.06 10^3/uL September 27 10:31:00 PM UTC (TECH: HC) 73359-0 Manual differential performed [Presence] in Blood N NO September 28, 2023 10:31:00 PM UTC (TECH: HC) ORDER 400: TROPONIN I 1 HOUR PROTOCOL (LOINC: 36554-3) ORDER DATE: September 28, 2023 9:36:00 PM UTC Specimen Source: Plasma Specimen Type: Plasma specim en PERFORMING LAB: [address] [id number] Result Comment: Final Result Date: September 28, 2023 11:59:00 PM UTC (TECH: AC) LOINC TEST FLAG [place] [address]-3 Troponin I.cardiac panel - Serum or Plasma by High sensitivity method N 47 ng/L 0 ng/L - 51 ng/L September 27 11:59:00 PM UTC (TECH: AC) ORDER 500: TROPONIN QUANT (L OINC: 37945-3) ORDER DATE: September 28, 2023 9:36:00 PM UTC Specimen Source: Serum/Plasm a Specimen Type: Acellular blo od (serum or plasma) specimen PERFORMING LAB: [place] [id number] Result Comment: Final Result Date: September 28, 2023 10:43:00 PM UTC (TECH: HC) LOINC TEST FLAG [place] [address]-1 Troponin I.cardiac panel - Serum or Plasma by High sensitivity method N 43 ng/L 0 ng/L - 51 ng/L September 27 10:43:00 PM UT (TECH: HC) ORDER 600: UA AND MICRO/CULT IF INDICATED (LOINC: 82883-7) ORDER DATE: September 28, 2023 9:36:00 PM UTC Specimen Source: URINE Specimen Type: Urine specime n PERFORMING LAB: [address] [id number] Result Comment: Final Result Date: September 28, 2023 11:22:00 PM UTC (TECH: AC) LOINC TEST FLAG RESULT REFERENCE RANGE UPDA SHARRON BY 5778-6 Color of Urine N yellow YELLOW September 28, 2023 11:22:00 PM UTC (TECH: AC) 5767-9 Appearance of Urine N clear CLEAR September 28, 2023 11:22:00 PM UTC (TECH: AC) 5792-7 Glucose [Mass/volume] in Urine by Test strip N NORM NORMAL September 27 11:22:00 PM UTC (TECH: AC) 46661-5 Bilirubin.total [Mass/volume] in Urine by Automated test strip N NEGATIVE NEGATIVE September 28, 2023 11:22:00 PM UTC (TECH: AC) 5797-6 Ketones [Mass/volume] in Urine by Test strip N NEGATIVE NEGATIVE September 27 11:22:00 PM UTC (TECH: AC) 2965-2 Specific gravity of Urine N 1.005 1.005 - 1.035 September 28, 2023 11:22:00 PM UTC (TECH: AC) 15235-8 Erythrocytes [#/volume] in Urine by Automated test strip N NEGATIVE NEGATIVE September 28, 2023 11:22:00 PM UTC (TECH: AC) 44243-3 pH of Urine by Automated test strip N 7.00 5.0 - 7.5 September 28, 2023 11:22:00 PM UTC (TECH: AC) 18782-6 Protein [Presence] in Urine by Test strip N 15 (TRACE) mg/dL NEGATIVE September 28, 2023 11:22:00 PM UTC (TECH: AC) 53030-1 Urobilinogen [Mass/volume] in Urine by Automated test strip N NORM NORMAL September 28, 2023 11:22:00 PM UTC (TECH: AC) 18300-6 Nitrate [Presence] in Urine N NEGATIVE NEGATIVE September 28, 2023 11:22:00 PM UTC (TECH: AC) 95850-1 Leukocytes [#/volume] in Urine by Test strip N NEGATIVE NEGATIVE September 28, 2023 11:22:00 PM UTC (TECH: AC) 33779-6 Other elements in Urine sediment N NOT REQUIRED September 28, 2023 11:22:00 PM UTC (TECH: AC) 20770-4 Microscopic observation [Identifier] in Urine sediment by Light microscopy N NO September 28, 2023 11:22:00 PM UTC (TECH: AC) ORDER 700: LACTIC ACID (LOIN C: 82752-6) ORDER DATE: September 28, 2023 9:36:00 PM UTC Specimen Source: Serum/Plasm a Specimen Type: Acellular blo od (serum or plasma) specimen PERFORMING LAB: [address] [id number] Result Comment: Final Result Date: September 28, 2023 10:42:00 PM UTC (TECH: HC) LOINC TEST FLAG [place] [address]-8 Lactate [Mass/volume] in Serum or Plasma N 0.7 mmole/L 0.4 mmole/L - 2.0 mmole/L September 28, 2023 10:42:00 PM UTC (TECH: HC) ORDER 1200: B-TYPE NATRIURET IC PEPTIDE BNP (LOINC: 18524-2) ORDER DATE: September 28, 2023 11:20:00 PM UT Specimen Source: Whole Blood Specimen Type: Whole blood s ample PERFORMING LAB: [address] [id number] Result Comment: Final Result Date: September 28, 2023 11:43:00 PM [facility] (TECH: AC) LOINC TEST FLAG RESULT [place] [address]-6 Natriuretic peptide B [Mass/volume] in Serum or Plasma H 651.0 pg/mL 0.0 pg/mL - 100 pg/mL September 28, 2023 11:43:00 PM [facility] (TECH: AC) LABORATORY NARRATIVE RESULTS Information is not available RADIOLOGY RESULTS ORDER 100: CT BRAIN HEAD WO (LOINC: 13845-9) ORDER DATE: September 28, 2023 9:36:00 PM [facility] PERFORMING LAB: [address] [id number] Final Result Date: September 28, 2023 11:00:[address] [place] [address] Name: DIAMOND BARBOSA Exam Date: 09/28/2023 : 1935 Age 88 years Gender: F Physician: RAQUEL GOMEZ Facility: [facility] Facility HSV: Outpatient Exam: CT BRAIN HEAD WO FINAL REPORT TECHNIQUE: Routine axial images through the head were obtained without contrast. CLINICAL HISTORY: Declining State / weakness FINDINGS: The ventricles are dilated, proportionate to the degree of generalized atrophy. Periventricular and deep white matter low-attenuation areas are consistent with chronic small vessel ischemia. There is no mass or shift in midline structures. There is no intracranial hemorrhage. There is no acute sinus or osseous abnormality. IMPRESSION: No acute intracranial abnormality. Authenticated and EASTERN Dictated By: Andre Rodriguez Transcribed By: Transcribed On: 09/28/2023 7:00 PM Electronically signed by: Andre Rodriguez 09/28/2023 Thank you for referring DIAMOND BARBOSA to [facility]. Legally authenticated by GEOFF GERMAIN MD 2023-09-28 19:00:03 ORDER 800: CHEST SINGLE VIEW /PORTABLE (LOINC: 11370-1) ORDER DATE: September 28, 2023 9:36:00 PM [facility] PERFORMING LAB: [address] [id number] Final Result Date: September 28, 2023 11:12:[address] [place] [address] Name: DIAMOND BARBOSA Exam Date: 09/28/2023 : 1935 Age 88 years Gender: F Physician: RAQUEL GOMEZ Facility: [facility] Facility HSV: Outpatient Exam: CHEST SINGLE VIEW/PORTABLE FINAL REPORT CLINICAL HISTORY: WEAKNESS/TREMORS X3 DAYS / HX ANGINA PECTORIS / HYPERTENSION / A-FIB / ANXIETY / REFLUX / NON SMOKER COMPARISON: 08/02/2023. FINDINGS: There are moderate bilateral pleural effusions with bibasilar opacity, likely due to atelectasis. The upper lung linares are clear. There is no pneumothorax. There is borderline cardiomegaly. IMPRESSION: Bilateral pleural effusions of uncertain etiology. Reviewed, Interpreted and Dictated by Andre Rodriguez M.D. Transcribed by Fer Heller Authenticated and EASTERN Dictated By: Andre Rodriguez Transcribed By: Transcribed On: 09/28/2023 7:12 PM Electronically signed by: Andre Rodriguez 09/28/2023 Thank you for referring DIAMOND BARBOSA to [facility]. Legally authenticated by GEOFF GERMAIN MD 2023-09-28 19:12:30 ORDER 1300: CT CHEST WO CONT RAST (LOINC: 64548-8) ORDER DATE: September 28, 2023 11:30:00 PM UT PERFORMING LAB: [address] [id number] Final Result Date: September 29, 2023 2:07:[address] [place] [address] Name: DIAMOND BARBOSA Exam Date: 09/28/2023 : 1935 Age 88 years Gender: F Physician: RAQUEL GOMEZ Facility: [facility] Facility HSV: Outpatient Exam: CT CHEST WO CONTRAST FINAL REPORT TECHNIQUE: Routine axial images were obtained from the lung apices to below the diaphragm without contrast. CLINICAL HISTORY: Diminished breath sounds / WEAKNESS/TREMORS X3 DAYS / HX ANGINA PECTORIS / HYPERTENSION / A-FIB / ANXIETY / REFLUX / NON SMOKER / ABNORMAL CHEST X-RAY FINDINGS: There is cardiomegaly. There is coronary artery and aortic valve calcification. There are small to moderate bilateral pleural effusions with adjacent bilateral dependent atelectasis. There is interlobular septal thickening consistent with interstitial pulmonary edema. There is no adenopathy. There is no acute osseous abnormality. IMPRESSION: Cardiomegaly with interstitial pulmonary edema and bilateral pleural effusions. Reviewed, Interpreted and Dictated by Andre Rodriguez M.D. Transcribed by Fer Heller Authenticated and [employer]ASTERN Dictated By: Andre Rodriguez Transcribed By: Transcribed On: 09/28/2023 10:07 PM Electronically signed by: Andre Rodriguez 09/28/2023 Thank you for referring DIAMOND BARBOSA to [facility]. Legally authenticated by GEOFF GERMAIN MD 2023-09-28 22:07:29 PATHOLOGY NARRATIVE RESULTS Information is not available MICROBIOLOGY RESULTS No Micro Labs/Results Exist for Patient BLOOD ADMIN RESULTS Information is not available TREATMENT PLAN DISCHARGE MEDICATIONS Status RXNORM Medication Dose Route Frequency Dates Comments U pdated By Patient discharge medication information is not available. PATIENT OPEN ORDERS Code System Description Frequency Occurrences Priority [place] [address]-4 [facility] EKG study ONE TIME 0 Stat September 28, 2023 9:36:0 0 PM [facility] PATRICIA Davenport MD 985 on September 28, 2023 9:36:00 PM [facility] SCHEDULED PROCEDURES Code System Description Status Scheduled Date Upd ated By Patient scheduled procedure information is not available. MEDICATIONS HOME MEDICATIONS Status RXNORM [facility] Medication Dose Route Frequency Dates Comments Reported By Updated By Active [id number] 92700 74557 8 Albuterol Sulfate HFA Inhalation Aerosol Solution 108 (90 Base) MCG/ACT 2.0 PUF INHALE D Q4HPRN Last Dose: on September 28, 2023 8:59:30 PM UT Active 766882 15368 13613 1 ALPRAZOLAM 0.25 MG TABLET 1.0 TAB BY MOUTH BID Last Dose: on September 28, 2023 8:59:31 PM UT Active 870784 09849 59509 0 atorvastatin 10 mg tablet 1.0 TAB BY MOUTH BID Last Dose: on September 28, 2023 8:59:31 PM UT Active 842239 52377 61690 1 CARVEDILOL 6.25 MG TABLET 1.0 TAB BY MOUTH BID Last Dose: TAKE 1 TABLET BY MOUTH TWICE A DAY on September 28, 2023 8:59:32 PM UT Active 06264 37102 1 cyanocobalam in (VITAMIN B-12) 1000 MCG 1.0 TAB BY MOUTH DAILY Last Dose: on September 28, 2023 8:59:32 PM UT Active FreeT extMe d digoxin (LANOXIN) 0.125 MG BY MOUTH Q48H Last Dose: Every other day. on September 28, 2023 8:59:32 PM UT Active FreeT extMe d folic acid (FOLATE) 1 MG 1.0 TAB BY MOUTH DAILY Last Dose: on September 28, 2023 8:59:32 PM UT Active 746459 14224 74309 5 Furosemide Tablet 20 MG 1.0 TAB BY MOUTH BID Last Dose: on September 28, 2023 8:59:33 PM UT Active FreeT extMe d isosorbide mononitrate SR 30.0 MG BY MOUTH DAILY Last Dose: on September 28, 2023 8:59:33 PM UT Active 36768 88980 1 MAGNESIUM-OX FRANKI 400 (240 Mg) MG 1.0 TAB BY MOUTH DAILY Last Dose: on September 28, 2023 8:59:33 PM UT Active 48615 82625 4 melatonin 5 mg tablet 5.0 MG BY MOUTH BEDTIME Last Dose: on September 28, 2023 8:59:33 PM UT Active 599200 35076 05317 0 memantine 10 mg tablet 1.0 TAB BY MOUTH BID Last Dose: on September 28, 2023 8:59:33 PM UT Active 446913 43840 97288 5 pantoprazole 40 mg tablet, delayed release (enteric coated) 1.0 TAB BY MOUTH DAILY Last Dose: [id number] on September 28, 2023 8:59:34 PM UT Active 938579 94517 84155 1 Potassium Chloride ER Tablet Extended Release 20 MEQ 1.0 TAB BY MOUTH DAILY Last Dose: Take while using lasix [id number] on September 28, 2023 8:59:34 PM UT Active 701574 52870 72488 0 PreserVision AREDS Capsule 2.0 CAP BY MOUTH DAILY Last Dose: may use home meds on September 28, 2023 8:59:34 PM [facility] Active 01656 46530 1 senna 8.6 mg capsule 2.0 CAP BY MOUTH DAILYPRN Last Dose: on September 28, 2023 8:59:34 PM [facility] Active 641602 44214 94927 0 THIAMINE MONONITRATE 100 MG 1.0 TAB BY MOUTH DAILY Last Dose: [id number] on September 28, 2023 8:59:35 PM UT Active 2766228 80494 80460 0 XARELTO 15 MG TABLET 1.0 TAB BY MOUTH DAILY Last Dose: [id number] on September 28, 2023 8:59:35 PM [facility] DISCHARGE MEDICATIONS Status RXNORM NDC Medication Dose Route Frequency Dates Comments Physician Updated By No Discharge Medication Info rmation Available INPATIENT MEDICATIONS Status RXNORM NDC Medication Dose Route Frequency Rat e Quantity Dates Comments Physician Updated By No Inpatient Medication Info rmation Available SOCIAL HISTORY SOCIAL HISTORY SNOMED-CT Social History Element Description Effective Dates Offered Cessation Comment UpdatedBy [id number] Historical Tobacco smoking status Never Smoked [id number] on October 09, 2022 9:02:37 PM [facility] SOCIAL HISTORY - Gender Sex: Female SOCIAL HISTORY - Status : status i nformation is not available Intention in Next Year: intention information is not available SOCIAL HISTORY - Sexual Behavior Sexual Orientation Gender Identity SNOMED-CT Description SNO MED -CT Description Activity Level No of Partners Partner Type UpdatedBy Information is not available VITAL SIGNS PATIENT VITAL SIGNS This section displays the mo st recent value for each vital sign as of September 29, 2023 2:11:06 AM UT [place] Code Vital Sign Activity Date Result Updated By 8310-5 Body temperature September 28, 2023 8:53:00 PM UTC 97.3 [degF] [id number] on September 28, 2023 8:54:[place] [address]-3 Body weight Measured September 27 8:54:38 PM UTC 52.16 kg (115.0 lb) [id number] on September 28, 2023 8:54:38 PM UT 8462-4 Diastolic blood pressure September 29, 2023 12:45:00 AM UTC 77.0 mm[Hg] [id number] on September 29, 2023 12:52:23 AM UT 8867-4 Heart rate September 29, 2023 12:46:00 AM UTC 79 /min [id number] on September 29, 2023 12:52:24 [place] [address]-5 Oxygen saturation in Arterial blood by Pulse oximetry September 29, 2023 12:46:00 AM UTC 100.0 % [id number] on September 29, 2023 12:52:24 AM UT 9279-1 Respiratory rate September 29, 2023 12:16:00 AM UTC 21 /min [id number] on September 29, 2023 12:24:32 AM UT 8480-6 Systolic blood pressure September 29, 2023 12:45:00 AM UTC 148.0 mm[Hg] [id number] on September 29, 2023 12:52:23 AM [facility] PEDIATRIC GROWTH CHART - VITAL SIGNS This section displays Head C ircumference Percentile, Weight for Length Percentile and BMI Percentile Loinc Code Pediatric Measure Age (Months) Result Updat ed By No Pediatric Growth Chart Pe rcentile Information Available. HEALTH CONCERNS Problems Concern Status Health Concern problem infor mation not available. Smoking Status Status Years Used Consumed packs p er day Health Concern smoking histo ry information not available. Family History Concern Status Health Concern family histor y information not available. ENCOUNTERS ENCOUNTER INFORMATION Reason for Visit TREMOR Admission September 28, 2023 8:34:[address] [address] Discharge September 29, 2023 1:11:00 AM [facility] ENCOUNTER DIAGNOSES Notes information is not kerry ilable. Code System Diagnosis Onset Date Diagnosis information is not available. ABSTRACT DIAGNOSES Code System Diagnosis Updated By Abstract Diagnosis informati on is not available. 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 Role on Team Status Start Date End Date Update d By PATRICIA BERGMAN Referring normal September 28, 2023 9:02:51 PM UTC September 29, 2023 1:11:00 AM UT [id number] on September 28, 2023 9:02:51 PM UT PATRICIA BERGMAN Attending normal September 28, 2023 9:02:51 PM UTC September 29, 2023 1:11:00 AM UT [id number] on September 28, 2023 9:02:51 PM UT PATRICIA BERGMAN Admitting normal September 28, 2023 9:02:51 PM UTC September 29, 2023 1:11:00 AM UT [id number] on September 28, 2023 9:02:51 PM UT DECLINED PCP PCP normal September 28, 2023 8:35:12 PM UTC September 29, 2023 1:11:00 AM UTC [id number] on September 28, 2023 9:02:51 PM UTC
--- OUTSIDE RECORDS SUMMARY | 2023-10-05 15:10 | XMS_ITS | Continuity of Care Document ---
Author Name Unknown Address [address] [place], [place] [id number] Organization [facility] Phone Care Team Providers Care Associate Professor Of Music Name Role Phone RAQUEL GOMEZ Unavailable [phone] RAQUEL GOMEZ Admitting DECLINED, PCP Primary Care Unavailable RAQUEL GOMEZ Primary Attending [phone] ALLERGIES AND ADVERSE REACTIONS ALLERGIES AND ADVERSE REACTIONS Code System Allergy Substance Adverse Reaction Date Reaction (Severity) Comment Status Reported By Updated By 0518 RXNorm PENICILLIN Adverse reaction to substance Not Specified active [id number] on September 28, 2023 8:59:28 PM UT RESULTS Patient: FAMILIA Kline Date of : [birth year] LABORATORY RESULTS ORDER 200: COMP METABOLIC PA ANDREW (LOINC: 78823-2) ORDER DATE: September 28, 2023 9:36:00 PM UT Specimen Source: Serum/Plasm a Specimen Type: Acellular blo od (serum or plasma) specimen PERFORMING LAB: [address] [id number] Result Comment: Final Result Date: September 28, [...] 28, 2023 10:51:00 PM UT (TECH: AC) 62135-5 Anion gap 3 in Serum or Plasma [...] 21 Ratio September 28, 2023 10:51:00 PM [facility] (TECH: AC) 74183-3 Glomerular filtratio n rate/1.73 sq M.predicted by [...] 28, 2023 10:51:00 PM UT (TECH: AC) 82937-1 Calcium [Mass/volume ] in Serum or Plasma N 9.0 mg/dL 8.5 mg/dL - 10.1 mg/dL September 28, 2023 10:51:00 PM [facility] (TECH: AC) 91971-3 Calcium [Mass/volume ] corrected for total protein in Serum or Plasma H 10.3 mg/dL 8.5 mg/dL - 10.1 mg/dL September 28, 2023 10:51:00 PM [facility] (TECH: AC) 1975-2 Bilirubin.total [Mass/volume] in [...] 78 U/L September 28, 2023 10:51:00 PM [facility] (TECH: AC) 6768-6 Alkaline phosphatase [Enzymatic activity/volume] in Serum or Plasma N 88 U/L 53 U/L - 141 U/L September 28, 2023 10:51:00 PM UT (TECH: AC) ORDER 300: CBC AUTO W DIFF ( LOINC: 36273-9) ORDER DATE: September 28, 2023 9:36:00 PM [facility] Specimen Source: Whole Blood Specimen Type: Whole blood s ample PERFORMING LAB: [address] [id number] Result Comment: Final Result Date: September 28, 2023 10:31:00 PM UT (TECH: [employer]) LOINC TEST FLAG RESULT REFERENCE RANGE UPDA [...] September 28, 2023 10:31:00 PM UTC (TECH: [employer]) 25074-9 Hematocrit [Volume Fraction] of Blood LL 24.1 % 36.0 % - 47.0 % September 28, 2023 10:31:00 PM UTC (TECH: [employer]) 787-2 Erythrocyte mean corpuscular volume [Entitic volume] by Automated count H 126.8 fl 80 fl - 95 fl September 28, 2023 10:31:00 PM UTC (TECH: [employer]) 13549-5 Erythrocyte mean corpuscular hemoglobin [Entitic mass] in Blood from Fetus by Automated count H 40.5 pg 27.0 pg - 34.0 pg September 28, 2023 10:31:00 PM UTC ([employer]) 09431-4 Erythrocyte mean corpuscular hemoglobin concentration [Mass/volume] in Blood from Fetus by Automated count N 32.0 g/dL 32.0 g/dL - 36.0 g/dL September 28, 2023 10:31:00 PM UTC (TECH: [employer]) 56135-4 Platelets [#/volume] in Blood N 175 10^3/uL 150 10^3/uL - 450 10^3/uL September 28, 2023 10:31:00 PM UTC ([employer]: [employer]) 70049-9 Erythrocyte distribution width [Ratio] H 20.4 % 12.3 % - 15.1 % September 28, 2023 10:31:00 PM UTC ([employer]) 47913-4 Platelet mean volume [Entitic volume] in Blood by Automated count N 9.5 fl 7.4 fl - 10.4 fl September 28, 2023 10:31:00 PM UTC (TECH: [employer]) 79003-5 Granulocytes/100 leukocytes in Blood by Automated count H 77.6 % 40 % - 75 % September 28, 2023 10:31:00 PM UTC (TECH: [employer]) 736-9 Lymphocytes/100 leukocytes in Blood by Automated count L 7.9 % 15 % - 57 % September 28, 2023 10:31:00 PM UTC (TECH: [employer]) 5905-5 Monocytes/100 leukocytes in Blood by Automated [...] 28, 2023 10:31:00 PM UTC (TECH: HC) 12664-4 Immature granulocytes [#/volume] in Blood N 0.7 % 0.0 % - 0.8 % September 27 10:31:00 PM UTC (TECH: HC) 50081-0 Granulocytes [#/volume] in Blood by Automated count [...] 28, 2023 10:31:00 PM UTC (TECH: HC) 53279-2 Immature granulocytes [#/volume] in Blood N 0.06 10^3/uL September 27 10:31:00 PM UTC (TECH: HC) 96687-1 Manual differential performed [Presence] in Blood N NO September 28, 2023 10:31:00 PM UTC (TECH: HC) ORDER 400: TROPONIN I 1 HOUR PROTOCOL (LOINC: 93509-8) ORDER DATE: September 28, 2023 9:36:00 PM UTC Specimen Source: Plasma Specimen Type: Plasma specim en PERFORMING LAB: [address] [id number] Result Comment: Final Result Date: September 28, 2023 11:59:00 PM UTC (TECH: AC) LOINC TEST FLAG [place] [address]-7 Troponin I.cardiac panel - Serum or Plasma by High sensitivity method N 47 ng/L 0 ng/L - 51 ng/L September 27 11:59:00 PM UTC (TECH: AC) ORDER 500: TROPONIN QUANT (L OINC: 10657-7) ORDER DATE: September 28, 2023 9:36:00 PM UTC Specimen Source: Serum/Plasm a Specimen Type: Acellular blo od (serum or plasma) specimen PERFORMING LAB: [place] [id number] Result Comment: Final Result Date: September 28, 2023 10:43:00 PM UTC (TECH: HC) LOINC TEST FLAG [place] [address]-0 Troponin I.cardiac panel - Serum or Plasma by High sensitivity method N 43 ng/L 0 ng/L - 51 ng/L September 27 10:43:00 PM UT (TECH: HC) ORDER 600: UA AND MICRO/CULT IF INDICATED (LOINC: 14596-7) ORDER DATE: September 28, 2023 9:36:00 PM UTC Specimen Source: URINE Specimen Type: Urine specime n PERFORMING LAB: [address] [id number] Result Comment: Final Result Date: September 28, [...] September 27 11:22:00 PM UTC (TECH: AC) 95766-3 Bilirubin.total [Mass/volume] in Urine by Automated test strip N NEGATIVE NEGATIVE September 28, 2023 11:22:00 PM UTC (TECH: AC) 5797-6 Ketones [Mass/volume] in Urine by Test strip N NEGATIVE NEGATIVE September 27 11:22:00 PM UTC (TECH: AC) 2965-2 Specific gravity of Urine N 1.005 1.005 - 1.035 September 28, 2023 11:22:00 PM UTC (TECH: AC) 90340-0 Erythrocytes [#/volume] in Urine by Automated test strip N NEGATIVE NEGATIVE September 28, 2023 11:22:00 PM UTC (TECH: AC) 67878-3 pH of Urine by Automated test strip N 7.00 5.0 - 7.5 September 28, 2023 11:22:00 PM UTC (TECH: AC) 51306-7 Protein [Presence] in Urine by Test strip N 15 (TRACE) mg/dL NEGATIVE September 28, 2023 11:22:00 PM UTC (TECH: AC) 50675-5 Urobilinogen [Mass/volume] in Urine by Automated test strip N NORM NORMAL September 28, 2023 11:22:00 PM UTC (TECH: AC) 54421-5 Nitrate [Presence] in Urine N NEGATIVE NEGATIVE September 28, 2023 11:22:00 PM UTC (TECH: AC) 54415-5 Leukocytes [#/volume] in Urine by Test strip N NEGATIVE NEGATIVE September 28, 2023 11:22:00 PM UTC (TECH: AC) 73592-5 Other elements in Urine sediment N NOT REQUIRED September 28, 2023 11:22:00 PM UTC (TECH: AC) 48866-0 Microscopic observation [Identifier] in Urine sediment by Light microscopy N NO September 28, 2023 11:22:00 PM UTC (TECH: AC) ORDER 700: LACTIC ACID (LOIN C: 09799-8) ORDER DATE: September 28, 2023 9:36:00 PM UTC Specimen Source: Serum/Plasm a Specimen Type: Acellular blo od (serum or plasma) specimen PERFORMING LAB: [address] [id number] Result Comment: Final Result Date: September 28, 2023 10:42:00 PM UTC (TECH: HC) LOINC TEST FLAG [place] [address]-6 Lactate [Mass/volume] in Serum or Plasma N 0.7 mmole/L 0.4 mmole/L - 2.0 mmole/L September 28, 2023 10:42:00 PM UTC (TECH: HC) ORDER 1200: B-TYPE NATRIURET IC PEPTIDE BNP (LOINC: 34402-5) ORDER DATE: September 28, 2023 11:20:00 PM UT Specimen Source: Whole Blood Specimen Type: Whole blood s ample PERFORMING LAB: [address] [id number] Result Comment: Final Result Date: September 28, 2023 11:43:00 PM [facility] (TECH: AC) LOINC TEST FLAG [place]ULT [place] [address]-3 Natriuretic peptide B [Mass/volume] in Serum or Plasma H 651.0 pg/mL 0.0 pg/mL - 100 pg/mL September 28, 2023 11:43:00 PM [facility] (TECH: AC) LABORATORY NARRATIVE RESULTS Information is not available RADIOLOGY RESULTS ORDER 100: CT BRAIN HEAD WO (LOINC: 27566-6) ORDER DATE: September 28, 2023 9:36:00 PM [facility] PERFORMING LAB: [address] [id number] Final Result Date: September 28, 2023 11:00:[address] [place] [address] Name: DIAMOND BARBOSA Exam Date: 09/28/2023 : 1935 Age 88 years Gender: F Physician: RAQUEL GOMEZ Facility: [facility] Facility HSV: Outpatient Exam: CT BRAIN HEAD [...] Thank you for referring DIAMOND BARBOSA to [facility]. Legally authenticated by GEOFF GERMAIN MD 2023-09-28 19:00:03 ORDER 800: CHEST SINGLE VIEW /PORTABLE (LOINC: 85616-1) ORDER DATE: September 28, 2023 9:36:00 PM [facility] PERFORMING LAB: [address] [id number] Final Result Date: September 28, 2023 11:12:[address] [place] [address] Name: DIAMOND BARBOSA Exam Date: 09/28/2023 : 1935 Age 88 years Gender: F Physician: RAQUEL GOMEZ Facility: [facility] Facility HSV: Outpatient Exam: CHEST SINGLE VIEW/PORTABLE [...] Thank you for referring DIAMOND BARBOSA to [facility]. Legally authenticated by GEOFF GERMAIN MD 2023-09-28 19:12:30 ORDER 1300: CT CHEST WO CONT RAST (LOINC: 31528-0) ORDER DATE: September 28, 2023 11:30:00 PM UT PERFORMING LAB: [address] [id number] Final Result Date: September 29, 2023 2:07:[address] [place] [address] Name: DIAMOND BARBOSA Exam Date: 09/28/2023 : 1935 Age 88 years Gender: F Physician: RAQUEL GOMEZ Facility: [facility] Facility HSV: Outpatient Exam: CT CHEST WO [...] Thank you for referring DIAMOND BARBOSA to [facility]. Legally authenticated by GEOFF GERMAIN MD 2023-09-28 [...] Priority [place] [address]-2 [facility] EKG study ONE TIME 0 Stat September 28, 2023 9:36:0 0 PM [facility] PATRICIA Davenport MD 985 on September 28, 2023 9:36:00 PM [facility] SCHEDULED PROCEDURES Code System Description Status Scheduled Date Upd ated By Patient scheduled procedure information is not available. MEDICATIONS HOME MEDICATIONS Status RXNORM [facility] Medication Dose Route Frequency Dates Comments Reported By Updated By Active [id number] 54293 16049 8 Albuterol Sulfate HFA Inhalation Aerosol Solution 108 (90 Base) MCG/ACT 2.0 PUF INHALE D Q4HPRN Last Dose: on September 28, 2023 8:59:30 PM UT Active 418113 53859 49434 1 ALPRAZOLAM 0.25 MG TABLET 1.0 TAB BY MOUTH BID Last Dose: on September 28, 2023 8:59:31 PM UT Active 540650 89294 24367 0 atorvastatin 10 mg tablet 1.0 TAB BY MOUTH BID Last Dose: on September 28, 2023 8:59:31 PM UT Active 358561 58475 29967 1 CARVEDILOL 6.25 MG TABLET 1.0 TAB BY MOUTH BID Last Dose: TAKE 1 TABLET BY MOUTH TWICE A DAY on September 28, 2023 8:59:32 PM UT Active 76778 00776 1 cyanocobalam in (VITAMIN B-12) 1000 MCG [...] September 28, 2023 8:59:32 PM UT Active 626137 81016 01303 5 Furosemide Tablet 20 MG 1.0 TAB BY MOUTH BID Last Dose: on September 28, 2023 8:59:33 PM UT Active FreeT extMe d isosorbide mononitrate SR 30.0 MG BY MOUTH DAILY Last Dose: on September 28, 2023 8:59:33 PM UT Active 93132 66115 1 MAGNESIUM-OX FRANKI 400 (240 Mg) MG 1.0 TAB BY MOUTH DAILY Last Dose: on September 28, 2023 8:59:33 PM UT Active 13982 07432 4 melatonin 5 mg tablet 5.0 MG BY MOUTH BEDTIME Last Dose: on September 28, 2023 8:59:33 PM UT Active 982239 22282 41622 0 memantine 10 mg tablet 1.0 TAB BY MOUTH BID Last Dose: on September 28, 2023 8:59:33 PM UT Active 044471 37133 24570 5 pantoprazole 40 mg tablet, delayed release (enteric coated) 1.0 TAB BY MOUTH DAILY Last Dose: [id number] on September 28, 2023 8:59:34 PM UT Active 887259 65662 83506 1 Potassium Chloride ER Tablet Extended Release 20 MEQ 1.0 TAB BY MOUTH DAILY Last Dose: Take while using lasix [id number] on September 28, 2023 8:59:34 PM UT Active 037454 75558 22136 0 PreserVision AREDS Capsule 2.0 CAP BY MOUTH DAILY Last Dose: may use home meds on September 28, 2023 8:59:34 PM [facility] Active 44809 41045 1 senna 8.6 mg capsule 2.0 CAP BY MOUTH DAILYPRN Last Dose: on September 28, 2023 8:59:34 PM [facility] Active 101576 10032 14330 0 THIAMINE MONONITRATE 100 MG 1.0 TAB BY MOUTH DAILY Last Dose: [id number] on September 28, 2023 8:59:35 PM UT Active 6312079 42472 50119 0 XARELTO 15 MG TABLET 1.0 TAB BY MOUTH DAILY Last Dose: [id number] on September 28, 2023 8:59:35 PM [facility] DISCHARGE MEDICATIONS Status RXNORM NDC Medication Dose Route Frequency Dates Comments Physician Updated By No Discharge Medication Info rmation Available INPATIENT MEDICATIONS Status RXNORM NDC Medication Dose Route Frequency Rat e Quantity Dates Comments Physician Updated By No Inpatient Medication Info rmation Available SOCIAL HISTORY SOCIAL HISTORY SNOMED-CT Social History Element Description Effective Dates Offered Cessation Comment UpdatedBy [id number] Historical Tobacco smoking status Never Smoked [id number] on October 09, 2022 9:02:37 PM [facility] SOCIAL HISTORY - Gender Sex: Female [...] value for each vital sign as of October 05, 2023 12:58:44 PM UT Loinc Code Vital Sign Activity Date Result Updated By 8310-5 Body temperature September 28, 2023 8:53:13 PM UTC 97.3 [degF] [id number] on September 30, 2023 1:12:[place] [address]-1 Body weight Measured September 29 1:12:23 AM UTC 52.163 kg (115.0 lb) [id number] on September 30, 2023 1:12:23 AM UT 8462-4 Diastolic blood pressure September 29, 2023 12:45:00 AM UTC 77.0 mm[Hg] [id number] on September 30, 2023 1:12:27 AM UT 8867-4 Heart rate September 29, 2023 12:46:00 AM UTC 79 /min [id number] on September 30, 2023 1:12:28 AM [facility] 16787-6 Oxygen saturation in Arterial blood by Pulse oximetry September 29, 2023 12:46:00 AM UTC 100.0 % [id number] on September 30, 2023 1:12:28 AM UT 9279-1 Respiratory rate September 29, 2023 12:16:00 AM UTC 21 /min [id number] on September 30, 2023 1:12:24 AM UT 8480-6 Systolic blood pressure September 29, 2023 12:45:00 AM UTC 148.0 mm[Hg] [id number] on September 30, 2023 1:12:27 AM [facility] PEDIATRIC GROWTH CHART - VITAL SIGNS [...] TREMOR Admission September 28, 2023 8:34:[address] [address] Discharge September 29, 2023 1:11:00 AM UT [facility]OSPITAL ENCOUNTER DIAGNOSES Notes information is not kerry ilable. Code System Diagnosis Onset Date Diagnosis information is not available. 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 [id number] on October 05, 2023 12:58:10 PM UT I50.20 ICD10 UNSPECIFIED SYST OLIC (CONGESTIVE) HEART FAILURE SNH3754 on October 05, 2023 12:58:10 PM UT E87.6 ICD10 HYPOKALEMIA ZPC0375 on October 05, 2023 12:58:10 PM UT D64.9 ICD10 ANEMIA, UNSPECIFIED DXL0107 on October 05, 2023 12:58:10 PM UT I48.91 ICD10 UNSPECIFIED ATRIAL FIBRILLAT ION OCY1233 on October 05, 2023 12:58:10 PM UT E78.5 ICD10 HYPERLIPIDEMIA, UNSPECIFIED SVQ0729 on October 05, 2023 12:58:10 PM UT K21.9 ICD10 GASTRO-ESOPHAGEA L REFLUX DISEASE WITHOUT ESOPHAGITIS DFS4350 on October 05, 2023 12:58:10 PM UT F03.94 ICD10 UNSPECIFIED SHAHRAM NTIA, UNSPECIFIED SEVERITY, WITH ANXIETY [id number] on October 05, 2023 12:58:10 PM UT Z79.899 ICD10 OTHER SNF (CURRENT) DR ERIC THERAPY [id number] on October 05, 2023 12:58:10 PM UT Z79.01 ICD10 SNF (CURRE NT) USE OF ANTICOAGULANTS [id number] on October 05, 2023 12:58:10 PM UT Z88.0 ICD10 ALLERGY STATUS TO PENICILLIN [id number] on October 05, 2023 12:58:10 PM UT CARE TEAM Care Associate Professor Of Music Role RAQUEL GOMEZ Referring RAQUEL GOMEZ Admitting PCP DECLINED Primary Care RAQUEL GOMEZ Primary Attending CARE TEAM CARE optometry assistant Role on Team Status Start Date End Date Update d By PATRICIA BERGMAN Referring normal September 28, 2023 9:02:51 PM UTC September 29, 2023 1:11:00 AM UT [id number] on September 28, 2023 9:02:51 PM UTC PATRICIA BERGMAN Attending normal September 28, 2023 9:02:51 PM UTC September 29, 2023 1:11:00 AM UT [id number] on September 28, 2023 9:02:51 PM UTC PATRICIA BERGMAN Admitting normal September 28, 2023 9:02:51 PM UTC September 29, 2023 1:11:00 AM UTC [id number] on September 28, 2023 9:02:51 PM UTC DECLINED PCP PCP normal September 28, 2023 8:35:12 PM UTC September 29, 2023 1:11:00 AM UTC [id number] on September 28, 2023 9:02:51 PM UTC
--- OUTSIDE RECORDS SUMMARY | 2023-10-05 15:10 | XMS_ITS | Continuity of Care Document ---
Author Name Unknown Address [address] [place] [id number] Organization [facility] Phone Care Team Providers Care Head End Desizing Machine Operator Name Role Phone LINDSEY LONGORIA Primary Care LINDSEY LONGORIA Admitting LINDSEY LONGORIA Unavailable LINDSEY LOGNORIA Primary Attending ALLERGIES AND ADVERSE REACTIONS ALLERGIES AND ADVERSE REACTIONS Code System Allergy Substance Adverse Reaction Date Reaction (Severity) Comment Status Reported By Updated By 7940 RXNorm PENICILLIN Adverse reaction to substance Not Specified active [id number] on February 05, 2023 8:39:38 PM [facility] RESULTS Patient: FAMILIA Kline Date of : [birth year] LABORATORY RESULTS Information is not available LABORATORY NARRATIVE RESULTS Information is not available RADIOLOGY RESULTS ORDER 100: CT BRAIN HEAD WOW (LOINC: 38496-2) ORDER DATE: May 10, 2023 3:37:00 PM [facility] PERFORMING LAB: [address] [id number] Final Result Date: May 10, 2023 4:41:35 PM [address] [place] [address] Name: DIAMOND BARBOSA Exam Date: 05/10/2023 : 1935 Age 88 years Gender: F Physician: LINDSYE LONGORIA Facility: [facility] Facility HSV: Outpatient Exam: CT BRAIN HEAD WOW EXAMINATION: CT HEAD WITH IV CONTRAST INDICATION: Hallucinations. TECHNIQUE: Contiguous axial CT images of the head with IV contrast. Coronal and sagittal reformatted images were generated and reviewed. COMPARISON: None FINDINGS: Global mild brain parenchymal volume loss. No evidence of acute hemorrhage. No evidence of brain parenchymal ischemia. No extra-axial collection. No mass effect, midline shift, or herniation. Periventricular and subcortical white matter hypodensities are nonspecific but favored to represent chronic microvascular ischemic changes in a patient of this age. Normal ventricular configuration. Basal cisterns are patent. Normal sized CSF spaces, accounting for age-related global cerebral volume loss. Visualized orbital structures are unremarkable. Visualized paranasal sinuses are clear No abnormality of the scalp soft tissues. No evidence of skull fracture. No abnormal intracranial enhancement IMPRESSION: No acute intracranial abnormality. Atrophic and chronic white matter changes. Dictated By: LUIS M BURNETTE Transcribed By: LUIS M BURNETTE Transcribed On: 05/10/2023 11:41 AM Electronically signed by: LUIS M BURNETTE 05/10/2023 Thank you for referring DIAMOND BARBOSA to [facility]. Legally authenticated by VASILE ASENICO 2023-05-10 11:41:35 PATHOLOGY NARRATIVE RESULTS Information is not available MICROBIOLOGY RESULTS No Micro Labs/Results Exist for Patient BLOOD ADMIN RESULTS Information is not available MEDICATIONS HOME MEDICATIONS Status RXNORM Medication Dose Route Frequency Dates Comments R eported By Updated By Drug Treatment Unknown DISCHARGE MEDICATIONS Status RXNORM Medication Dose Route Frequency Dates Comments Physic jo-ann Updated By No Discharge Medication Info rmation Available INPATIENT MEDICATIONS Status RXNORM Medication Dose Route Frequency Rate Quantity Dates Comments Physician Updated By No Inpatient Medication Info rmation Available SOCIAL HISTORY SOCIAL HISTORY SNOMED-CT Social History Element Description Effective Dates Offered Cessation Comment UpdatedBy [id number] Historical Tobacco smoking status Never Smoked [id number] on October 09, 2022 9:02:37 PM [facility] SOCIAL HISTORY - Gender Sex: Female SOCIAL HISTORY - Sexual Behavior Sexual Orientation Gender Identity SNOMED-CT Description SNO MED -CT Description Activity Level No of Partners Partner Type UpdatedBy Information is not available HEALTH CONCERNS Problems Concern Status Health Concern problem infor mation not available. Smoking Status Status Years Used Consumed packs p er day Health Concern smoking histo ry information not available. Family History Concern Status Health Concern family histor y information not available. ENCOUNTERS ENCOUNTER INFORMATION Reason for Visit HALLUCINATIONS Admission May 10, 2023 3:23:[address] [address] Discharge May 10, 2023 8:23:00 PM UTC DISCHARGED TO HOME OR SELF CARE ENCOUNTER DIAGNOSES Notes information is not kerry ilable. Code System Diagnosis Onset Date Diagnosis information is not available. ABSTRACT DIAGNOSES Code System Diagnosis Updated By R44.3 ICD10 HALLUCINATIONS, UNSPECIFIED [id number] on May 09, 2023 6:38:53 PM UTC CARE TEAM Care Head End Desizing Machine Operator Role LINDSEY LONGORIA Primary Care LINDSEY LONGORIA Admitting LINDSEY LONGORIA Referring LINDSEY LONGORIA Primary Attending CARE TEAM CARE all purpose clerk Role on Team Status Start Date End Date Update d By VON BERGMAN PCP normal May 09, 2023 6:38:53 PM UTC May 10, 2023 8:23:00 PM UTC [id number] on May 09, 2023 6:38:53 PM UTC VON BERGMAN Referring normal May 09, 2023 6:38:53 PM UTC May 10, 2023 8:23:00 PM UTC [id number] on May 09, 2023 6:38:53 PM UTC VON BERGMAN Attending normal May 09, 2023 6:38:53 PM UTC May 10, 2023 8:23:00 PM UTC [id number] on May 09, 2023 6:38:53 PM UTC VON BERGMAN Admitting normal May 09, 2023 6:38:53 PM UTC May 10, 2023 8:23:00 PM UTC [id number] on May 09, 2023 6:38:53 PM UTC
--- OUTSIDE RECORDS SUMMARY | 2023-10-05 15:10 | XMS_ITS | Continuity of Care Document ---
Author Name Unknown Address [address] [place] [id number] Organization [facility] Phone Care Team Providers Care Dog Barber Name Role Phone LINDSEY LONGORIA Primary Care LINDSEY LONGORIA Admitting LINDSEY LONGORIA Unavailable LINDSEY LONGORIA Primary Attending ALLERGIES AND ADVERSE REACTIONS ALLERGIES AND ADVERSE REACTIONS Code System Allergy Substance Adverse Reaction Date Reaction (Severity) Comment Status Reported By Updated By [id number] RXNorm PENICILLIN Adverse reaction to substance Not Specified active [id number] on February 05, 2023 8:39:38 PM [facility] RESULTS Patient: FAMILIA Kline Date of : April [birth year] LABORATORY RESULTS Information is not available LABORATORY NARRATIVE RESULTS Information is not available RADIOLOGY RESULTS ORDER 100: CT BRAIN HEAD WOW (LOINC: 75997-5) ORDER DATE: May 10, 2023 3:37:00 PM [facility] PERFORMING LAB: [address] [id number] Final Result Date: May 10, 2023 4:41:35 PM [address] [place] [address] Name: DIAMOND BARBOSA Exam Date: 05/10/2023 : 1935 Age 88 years Gender: F Physician: LINDSEY LONGORIA Facility: [facility] Facility HSV: Outpatient Exam: CT BRAIN [...] Thank you for referring DIAMOND BARBOSA to [facility]. Legally authenticated by VASILE ASENCIO 2023-05-10 11:41:35 PATHOLOGY NARRATIVE RESULTS Information is [...] Description Effective Dates Offered Cessation Comment UpdatedBy [id number] Historical Tobacco smoking status Never Smoked [id number] on October 09, 2022 9:02:37 PM [facility] SOCIAL HISTORY - Gender Sex: Female [...] HALLUCINATIONS Admission May 10, 2023 3:23:[address] [id number] Discharge May 10, 2023 8:23:00 PM UTC DISCHARGED TO HOME OR SELF CARE ENCOUNTER DIAGNOSES Notes information is not kerry ilable. Code System Diagnosis Onset Date Diagnosis information is not available. ABSTRACT DIAGNOSES Code System Diagnosis Updated By R44.3 ICD10 HALLUCINATIONS, UNSPECIFIED [id number] on May 11, 2023 1:13:15 PM UTC R44.3 ICD10 HALLUCINATIONS, UNSPECIFIED [id number] on May 11, 2023 1:13:15 PM UTC R41.0 ICD10 DISORIENTATION, UNSPECIFIED [id number] on May 11, 2023 1:13:15 PM UTC R41.3 ICD10 OTHER AMNESIA [id number] on May 1:13:15 PM UTC CARE TEAM Care Dog Barber Role LINDSEY LONGORIA Primary Care LINDSEY LONGORIA Admitting LINDSEY LONGORIA Referring LINDSEY LONGORIA Primary Attending CARE TEAM CARE deadener Role on Team Status Start Date End Date Update d By VON BERGMAN PCP normal May 09, 2023 6:38:53 PM UTC May 10, 2023 5:00:00 AM UTC [id number] on May 09, 2023 6:38:53 PM UTC VON BERGMAN Referring normal May 09, 2023 6:38:53 PM UTC May 10, 2023 5:00:00 AM UTC [id number] on May 09, 2023 6:38:53 PM UTC VON BERGMAN Attending normal May 09, 2023 6:38:53 PM UTC May 10, 2023 5:00:00 AM UTC [id number] on May 09, 2023 6:38:53 PM UTC VON BERGMAN Admitting normal May 09, 2023 6:38:53 PM UTC May 10, 2023 5:00:00 AM UTC [id number] on May 09, 2023 6:38:53 PM UTC
--- NOTE | 2023-10-05 15:15 | PC.NURSE ---
Report called to Marilu FLYNN
[2023-10-05 15:32] LABS: Ammonia < 9 umol/L (9-30)
--- NOTE | 2023-10-05 15:41 | EXP.HP ---
History of Present Illness *Admission Date: 10/05/23 *Reason for visit:: weakness [facility] Disclaimer: The information contained in this section may have been updated after the patient was seen, as this information can be updated by other users. Medical History High cholesterol Paroxysmal A-fib Chronically low serum potassium CHF (congestive heart failure) GERD (gastroesophageal reflux disease) Closed fracture of right fibula and tibia Essential (primary) hypertension Anxiety Encephalopathy, unspecified Pneumonia, unspecified organism Anemia, unspecified Anemia in other chronic diseases classified elsewhere Myelodysplastic syndrome, unspecified Social History Smoking Status: Never smoker alcohol intake: never current occupational status: retired Travel in the last 8 weeks: None household members: spouse housing: house current occupational exposures/hazards: No caffeine: Yes Review of Systems Review of Systems Review of systems (narrative): 14 point review of systems performed, pertinent positives and negatives as per HPI Meds Home Medications and Allergies Home Medications Medication Instructions Recorded Confirmed Type albuterol sulfate 90 mcg/actuation 1 - 2 inh inhalation Q4-6H PRN 10/05/23 10/05/23 History aerosol inhaler Shortness Of Breath Or Wheezing alprazolam 0.25 mg tablet 0.25 mg PO TID 10/05/23 10/05/23 History atorvastatin 10 mg tablet 10 mg PO HS 10/05/23 10/05/23 History benzonatate 200 mg capsule 200 mg PO TIDP PRN Cough 10/05/23 10/05/23 History carvedilol 3.125 mg tablet 3.125 mg PO BID 10/05/23 10/05/23 History digoxin 125 mcg (0.125 mg) tablet 125 mcg PO DAILY 10/05/23 10/05/23 History isosorbide mononitrate 30 mg 30 mg PO DAILY 10/05/23 10/05/23 History tablet,extended release 24 hr metolazone 2.5 mg tablet See Rx Instructions .Route 10/05/23 10/05/23 History .COMPLEX Fluid Overload omeprazole 40 mg capsule,delayed 40 mg PO AM 10/05/23 10/05/23 History release pantoprazole 40 mg tablet,delayed 40 mg PO HS 10/05/23 10/05/23 History release potassium chloride 20 mEq 20 meq PO DAILYP PRN Fluid Overload 10/05/23 10/05/23 History tablet,extended release rivaroxaban 15 mg tablet (Xarelto) 15 mg PO DAILY 10/05/23 10/05/23 History New Prescriptions to Start Prescriptions: Allergies Allergy/AdvReac Type Severity Reaction Status Date / Time penicillin G Allergy Intermediate Hives Verified 10/05/23 19:33 Exam Data for Last 24 hours Vital signs and Labs for Last 24 Hours: Temp Pulse Resp BP Pulse Ox O2 Del Method O2 Flow Rate 98 F 90 16 102/66 L 100 Nasal Cannula 2 10/05/23 15:34 10/05/23 15:34 10/05/23 15:34 10/05/23 15:34 10/05/23 14:30 10/05/23 13:30 10/05/23 13:30 Laboratory Results - last 24 hr 10/05/23 12:39: WBC 9.1, RBC 1.62 L*, Hgb 6.7 L*, Hct 20.9 L*, MCV 128.5 H, MCH 41.5 H*, MCHC 32.3, RDW 20.0 H, Plt Count 215, MPV 8.6, Neut % (Auto) 80.6 H, Lymph % (Auto) 9.9 L, [place] % (Auto) 4.1, Eos % (Auto) 5.2, Baso % (Auto) 0.3, Neut # (Auto) 7.3, Lymph # (Auto) 0.9, [place] # (Auto) 0.4, Eos # (Auto) 0.5 H, Baso # (Auto) 0.0, Sodium 132 L, Potassium 3.1 L, Chloride 76 L, Carbon Dioxide 56 H*, Anion Gap 3.1 L, BUN 30 H, Creatinine 0.70, Estimated Creat Clear 26, Estimated GFR 79, Est GFR ( Amer) 95, Glucose 104 H, Calcium 8.3 L, Total Bilirubin 0.6, AST 41 H, ALT 26, Alkaline Phosphatase 82, Troponin I 0.06 H, Total Protein 6.0 L, Albumin 2.8 L, Globulin 3.2, Albumin/Globulin Ratio 0.9 L, Urine Color Yellow, Urine Appearance Clear, Urine pH 6.0, Ur Specific [place] 1.010, Urine Protein 1+, Urine Glucose (UA) Negative, Urine Ketones Negative, Urine Blood Negative, Urine Nitrate Negative, Urine Bilirubin Negative, Urine Urobilinogen 0.2, Ur Leukocyte Esterase Negative, Urine RBC Occasional, Urine WBC Occasional, Ur Squamous Epith Cells 3-5, Urine Bacteria Trace, Hyaline Casts 3-5 10/05/23 12:58: VBG pH 7.44 H, VBG pCO2 82.9 H, VBG pO2 40.8 H, VBG HCO3 54.5 H, VBG Total CO2 57.1 H, VBG O2 Saturation 72.3 H, VBG Base Excess 30.3 H, VBG Lactic Acid 1.2 10/05/23 15:12: Ammonia < 9 L, Crossmatch (AHG) See Detail I & O for Last 24 hours: Intake & Output 10/02/23 10/03/23 10/04/23 10/05/23 23:59 23:59 23:59 23:59 Weight 43.091 kg Constitutional Constitutional: mild distress, cachectic, chronically ill appearing and somnolent *Routine HEENT Exam Head: Present normocephalic Eye: Present EOMI and PERRL ENT: Present mucous membranes moist Comments: bitemporal wasting, loss of periorbital fat *Routine Neck Exam Neck: Present supple and JVD; Absent lymphadenopathy *Routine Respiratory Exam Respiratory: Present prolonged expiratory phase, crackles and normal respiratory effort; Absent rhonchi or wheezes *Routine Cardiovascular Exam Cardiovascular: Present irregularly irregular *Routine Abdominal Exam Abdominal: Present soft and normoactive bowel sounds; Absent tenderness *Routine Rectal Exam Rectal:: deferred *Routine Genitalia Exam Genitalia:: deferred *Routine Extremities Exam Extremities: Absent cyanosis, clubbing or edema Comments: sarcopenia *Routine Skin Exam Skin: Present pallor and warm; Absent rash *Routine Neurological Exam Neurological: Present alert, altered mental status and moving all extremities Assessment and Plan *Assessment and plan (1) Acute on chronic diastolic (congestive) heart failure: Status: Acute Category: Medical Code(s): I50.33 - Acute on chronic diastolic (congestive) heart failure (2) Anemia, chronic disease: Status: Acute Category: Medical Code(s): D63.8 - Anemia in other chronic diseases classified elsewhere (3) Multifocal pneumonia: Status: Acute Category: Medical Code(s): J18.9 - Pneumonia, unspecified organism (4) MDS (myelodysplastic syndrome): Status: Acute Category: Medical Code(s): D46.9 - Myelodysplastic syndrome, unspecified (5) Acute encephalopathy: Status: Acute Category: Medical Code(s): G93.40 - Encephalopathy, unspecified (6) Anxiety: Status: Chronic Category: Medical Code(s): F41.9 - Anxiety disorder, unspecified (7) Hypertension: Status: Chronic Category: Medical Code(s): I10 - Essential (primary) hypertension (8) Cachexia: Status: Acute Category: Medical Code(s): R64 - Cachexia Plan 88-year-old female with progressive decline over the past few months. Most precipitously over the past 2 days. Brought in due to weakness and confusion. Found to be anemic in the ER with concern for dyspnea. Discussed case with ER physician, request admission for further management of patient's weakness, weight loss, anemia. I agreed to admit for further management. Additional labs show the patient has significantly elevated BNP concerning for CHF exacerbation. Patient is cachectic and very ill. Strong clinical concern for potential decline, prognosis guarded. Condition serious. Problems addressed as follows: Acute on chronic diastolic heart failure Chronic hypoxemic respiratory failure -Continue supplemental oxygen as needed, goal sats greater 90%. Currently on 2 L -BNP greater than 10,000. Will diurese with Lasix 80 mg IV x 1. - Cortisol level pending -Lasix 80 mg once IV on admission. Will administer 40 mg twice daily. Monitor for bump in creatinine as sign of euvolemia. -Echo obtained, concern for dilated IVC that does not collapse with inspiration and dilated right ventricle. Preliminary read shows elevated right-sided pressures and possible pulmonary hypertension. Metabolic alkalosis: Bicarb 54. Differential includes adrenal abnormality, contraction alkalosis due to diuretic, compensation for chronic respiratory failure. Initiate acetazolamide 250 mg twice daily to address metabolic alkalosis. Pneumonia: Empiric coverage with azithromycin, cefepime, vancomycin given recent hospital exposure. CTA of chest pending to evaluate for pneumonia versus pulmonary edema related to heart failure. Blood cultures pending. Continue antibiotics for at least 48 hours pending Atrial fibrillation: Holding regulation, need. Will continue digoxin 125 mcg daily. Heart rate currently controlled at 72. Blood pressure soft at 92/65 maintain MAP >65 holding carvedilol and isosorbide Anemia Suspected myelodysplastic syndrome -Acute on chronic. Macrocytosis present with MCV greater than 120. B12 greater than thousand. Folate pending. -Hemoglobin threshold for transfusion less than 7. Receiving 1 unit packed red blood cells. With 2-hour post H&H. Transfuse as necessary. -On anticoagulation for her A-fib. Will hold at this time. -Peripheral smear obtained and pending, history of myelodysplastic syndrome. Will attempt to obtain records. -continue pantoprazole 40 mg IV twice daily. Cachexia: Complicates all aspects of her care. Will add nutritional supplement with meals. DNR Cardiac diet holding anticoagulation in setting of anemia
[2023-10-05] MEDS: VANCOMYCIN HCL 750 MG in 0.9 % SODIUM CHLORIDE 250 ML 125 MG IV (15:56)
[2023-10-05] MEDS: AZITHROMYCIN 500 MG in 0.9 % SODIUM CHLORIDE 250 ML 250 MG IV (15:56)
--- NOTE | 2023-10-05 16:34 | CA_ITS ---
APPROVED REPORT EXAM: Comprehensive 2D, Doppler, and color-flow Echocardiogram Cheese Cook: KAYLAH Bustos, RVS Ht: 5 ft 3 in Wt: 89lbs BSA: 1.37 BP: 145/66 mmHg Indications: CHF,PNA, Anemia,Afib 2D Dimensions IVSd 0.74 cm LVEF (Visual) 71.70 % PWd 0.96 cm LA Volume 88.90 mL LVDd 3.31 cm LA Volume Index 64.134137 mL/m2 (M/F) 16-34 LVDs 1.99 cm Left Atrium 5.32 cm M-Mode Dimensions LA Diam 5.60 cm (1.9-4.0) EPSs 0.32 cm LV Diastology E Decel Time 123 (160-240 msec) E/A Ratio 2.28 MED A' 1.60 cm/s LAT A' 2.60 cm/s Aortic Valve TANNER Index 0.54 cm2/m2 AoV Peak Jack. 164.0 (50-130 cm/s) AO Peak GR. 10.70 mmHg AO Mean GR. 5.40 (<5 mmHg) AO VTI 35.2 (18-25 cm) TANNER (VTI) 0.76 (2.5-4.5 cm2) Mitral Valve MV E Max Jack. 117.0 (40-130 cm/s) MV A Velocity 51.0 (40-130 cm/s) E/A Ratio 2.28 MV PHT 36.0 ms Tricuspid Valve TR P. Velocity 361.00 cm/s RAP Estimate 10.00 mmHg RVSP 62.10 mmHg Left Ventricle The left ventricle is normal size. The left ventricular systolic function is normal. The left ventricular ejection fraction is within the normal range. There is increased LV wall thickness. There is normal LV segmental wall motion. Diastolic function is indeterminate. LVEF is 60%. Right Ventricle The right ventricle is mildly dilated. The right ventricular systolic function is normal. Atria Left atrium is severely dilated. Right atrium is severely dilated. There is no Doppler evidence of interatrial shunt. Aortic Valve The aortic valve is mildly thickened. There is no aortic valvular stenosis. Trace aortic regurgitation. Mitral Valve Mild mitral annular calcification. The mitral valve leaflets are mildly thickened. No evidence of mitral valve stenosis. Moderate mitral regurgitation. Tricuspid Valve The tricuspid valve leaflets are thin and pliable. Severe tricuspid regurgitation. RVSP is 55-60 mmHg. Pulmonic Valve The pulmonary valve is not well-visualized. Mild pulmonic regurgitation. Great Vessels The aortic root is not well-visualized. IVC is normal in size and collapses >50% with inspiration. Pericardium There is no pericardial effusion. Other Information Study Quality: Technically Difficult Conclusion Technically difficult study due to poor acoustic windows. Normal biventricular systolic function. Mild RV dilation. Severe biatrial dilation. Moderate MR. Severe TR. Markedly elevated RVSP 55 to 60 mmHg. Electronically signed by : Kat Raphael MD 10/08/2023 14:12:16
[2023-10-05] MEDS: 0.9 % SODIUM CHLORIDE 250 ML 25 ML IV ×2 (17:05→23:45)
[2023-10-05 17:20] LABS: Folate > 20.00 ng/mL; Vitamin B12 > 1000 pg/mL (239-931)
[2023-10-05 17:24] LABS: Troponin I 0.05 ng/ml (0.00-0.034)
[2023-10-05 17:26] LABS: Phosphorous 3.4 mg/dl (2.5-4.5)
[2023-10-05 18:02] LABS: NT Pro Brain Natriuretic Pep. 11100 pg/mL (0-450)
[2023-10-05] MEDS: KCl 10mEq/100ml 100 ML 100 MEQ IV ×3 (18:51→22:03)
[2023-10-05] MEDS: FUROSEMIDE 40MG/4ML VIAL 80 MG IV (18:57)
--- NOTE | 2023-10-05 19:40 | PC.NURSE ---
Dr. Klein made aware that patient's medication list is up to date. Dr. Klein requests that patient have a CTA Chest, only after patient finishes her blood transfusion.
--- NOTE | 2023-10-05 19:43 | CT_ITS ---
PROCEDURE INFORMATION: Exam: CTA Chest With Contrast Exam date and time: 10/05/2023 9:13 PM Age: 88 years old Clinical indication: Other: Pulm htn/pe; Additional info: Eval pneumonia, effusions, pulm htn/pe TECHNIQUE: Imaging protocol: Computed tomographic angiography of the chest with contrast. Exam focused on the arteries. 3D rendering (Not supervised by radiologist): MIP and/or 3D reconstructed images were created by the technologist. Radiation optimization: All CT scans at this facility use at least one of these dose optimization techniques: automated exposure control; mA and/or kV adjustment per patient size (includes targeted exams where dose is matched to clinical indication); or iterative reconstruction. Contrast material: ISOVUE; Contrast volume: 70 ml; Contrast route: INTRAVENOUS (IV); COMPARISON: CR XR CHEST PORTABLE 10/05/2023 1:18 PM FINDINGS: Pulmonary arteries: Normal. No pulmonary emboli. Aorta: Atherosclerotic calcification of thoracic aorta. No aneurysm. No dissection. Lungs: Underlying centrilobular emphysematous changes. Pleural spaces: Moderately large, complex bilateral pleural effusions with compressive and rounded subsegmental atelectasis of both lower lobes. Heart: Unremarkable. No cardiomegaly. No pericardial effusion. Coronary arteries: Atherosclerotic calcification of coronary arteries. Lymph nodes: Probable right supraclavicular lymph node measuring up to 2.0 x 2.7 cm. Possible enlarged retroperitoneal lymph nodes/mass in visualized abdomen. Intraperitoneal space: Cystic lesion in visualized left hemiabdomen measuring 8.7 x 12 cm with mass effect on surrounding structures. Bones/joints: Age-indeterminate T4 vertebral body compression fracture without significant bony retropulsion although likely nonacute. Osteopenia. Soft tissues: Etiology indeterminate soft tissue air in left axillary region and arm. IMPRESSION: 1. No central or segmental pulmonary arterial embolism identified. 2. Probable chronic, moderately large, complex bilateral pleural effusions with compressive and rounded subsegmental atelectasis of both lower lobes. Underlying centrilobular emphysematous changes. 3. Etiology indeterminate large cystic structure in visualized left hemiabdomen with mass effect on surrounding structures. 4. Etiology indeterminate enlarged right supraclavicular probable lymph node although suboptimally visualized and evaluated. Possible retroperitoneal mass/lymph nodes in visualized abdomen. Consider further imaging evaluation with nonurgent CT scan. 5. Etiology indeterminate left axillary and arm region soft tissue air. Cannot exclude underlying complex fluid collection including abscess.
[2023-10-05 20:12] LABS: Troponin I 0.05 ng/ml (0.00-0.034)
--- NOTE | 2023-10-05 21:05 | PC.NURSE ---
Patient left floor with Radiology at 21:00.
--- NOTE | 2023-10-05 21:22 | PC.NURSE ---
Patient returned to floor from Radiology at 21:23.
[2023-10-05] MEDS: IOPAMIDOL-370 (76%);100ML BOTTLE 70 ML IV (21:29)
[2023-10-05] MEDS: 0.9 % SODIUM CHLORIDE 50 ML VIAL IV (21:29)
[2023-10-05] MEDS: SODIUM CHLORIDE 0.9% 10ML SYR (RAD ONLY) 10 ML IV (21:29)
[2023-10-05 22:12] LABS: Hemoglobin 6.4 g/dL (12.2-16.2)
[2023-10-05 22:14] LABS: Hematocrit 18.3 % (37.0-47.0)
--- NOTE | 2023-10-05 22:20 | PC.NURSE ---
Hospitalist FOOD COUNTER ATTENDANT notified that patient has critical H&H 1 hour post transfusion. Awaiting new orders
[2023-10-06] VITALS (23 sets, daily range): BP systolic 109–159; BP diastolic 46–91; PULSE 62–96; RESP 14–25; TEMP 36.4–36.8; O2SAT 92–100; BMI 15.7
[2023-10-06 03:27] LABS: Hematocrit 26.6 % (37.0-47.0)
[2023-10-06 04:11] LABS: Hemoglobin 9.1 g/dL (12.2-16.2)
[2023-10-06] MEDS: CEFEPIME HCL 2 GM in 0.9 % SODIUM CHLORIDE 100 ML IV (04:12)
--- NOTE | 2023-10-06 05:45 | PC.NURSE ---
Addendum entered by Marko Gomez RN 10/06/23 05:52: Specimens were actually sent at 0419, not 0450 Original Note: AM labs sent at 0450. Had not been received in at this time. Called lab and spoke to veterinarian laboratory animal care who stated they didn't know to use those labs for the AM labs, so the specimens were not running. Explained to lab member that these specimens were obtained by RN r/t difficult stick and to please communicate any discrepancies on specimens next time.
[2023-10-06 05:49] LABS: Basophils % 0.4 % (0.1-2.0); Eosinophils # 0.7 K/mm3 (0.0-0.4); Eosinophils % 6.4 % (0.1-12.0); Lymphocytes # 0.7 K/mm3 (0.7-4.5); Lymphocytes % 6.9 % (10-50); Mean Corpuscular HGB Conc 32.9 g/dL (31.8-35.4); Mean Corpuscular Hemoglobin 36.1 pg (27.0-31.2); Mean Corpuscular Volume 109.8 fl (81-99); Mean Platelet Volume 8.7 fl (7.4-10.4); Monocytes # 0.4 K/mm3 (0.1-1.0); Monocytes % 4.1 % (1.7-9.3); Neutrophils # 8.4 K/mm3 (1.8-7.8); Neutrophils % 82.2 % (37.0-80.0); Platelet Count 160 K/mm3 (142-424); Red Blood Count 2.51 M/mm3 (4.20-5.40); White Blood Count 10.2 K/mm3 (4.8-10.8)
[2023-10-06 05:54] LABS: Chloride 79 mmol/L (98-107); Potassium 3.3 mmoL/L (3.5-5.1); Sodium 132 mmol/L (136-145)
[2023-10-06 05:57] LABS: Alanine Aminotransferase 27 U/L (12-78); Albumin Level 2.6 g/dl (3.5-5.0); Albumin/Globulin Ratio 0.9 (1.1-1.8); Alkaline Phosphatase 74 U/L (38-126); Aspartate Amino Transferase 49 U/L (14-36); Bilirubin,Total 1.2 mg/dl (0.2-1.3); Blood Urea Nitrogen 24 mg/dl (7-17); Creatinine Clearance Estimated 24 mL/min (50-200); Estimated Glomerular Filt Rate 94 ml/min (>60); GFR (African American) 114 ML/MIN (>60); Globulin 2.8 g/dL (1.3-3.2); Phosphorous 3.6 mg/dl (2.5-4.5); Total Protein,Serum 5.4 g/dl (6.3-8.2)
[2023-10-06 05:58] LABS: Calcium 7.8 mg/dl (8.4-10.2); Glucose 85 mg/dl (74-100); Magnesium 1.7 mg/dl (1.6-2.3)
[2023-10-06 05:59] LABS: Red Cell Distribution Width 25.2 % (11.5-17.5)
[2023-10-06 06:01] LABS: Hematocrit 27.3 % (37.0-47.0)
--- NOTE | 2023-10-06 06:09 | PC.NURSE ---
Night SPARE PERSON notified of critical CO2 55. No new orders
[2023-10-06 06:10] LABS: Anion Gap 1.3 mEq/L (5-15); Carbon Dioxide 55 mmol/L (22.0-30.0)
--- NOTE | 2023-10-06 07:56 | CT_ITS ---
PROCEDURE INFORMATION: Exam: CT Abdomen And Pelvis Without Contrast Exam date and time: 10/06/2023 8:52 AM Age: 88 years old Clinical indication: Condition or disease; Other: Eval left hemiabdomen mass TECHNIQUE: Imaging protocol: Computed tomography of the abdomen and pelvis without contrast. Radiation optimization: All CT scans at this facility use at least one of these dose optimization techniques: automated exposure control; mA and/or kV adjustment per patient size (includes targeted exams where dose is matched to clinical indication); or iterative reconstruction. COMPARISON: CT ANGIO CHEST PE PROTOCOL 10/05/2023 9:13 PM FINDINGS: Pleural spaces: Moderate pleural effusions bilaterally with adjacent dependent atelectasis. Liver: Normal. No mass. Gallbladder and biliary ducts: Normal. No calcified stones. No ductal dilation. Pancreas: Normal. No ductal dilation. Spleen: Normal. No splenomegaly. Adrenal glands: Normal. No mass. Kidneys and ureters: Multiple large cortical renal cysts bilaterally. Largest from the midpole left kidney measures 12 x 9 x 15 cm (AP/TV/SI) with significant mass effect upon adjacent structures. Stomach and bowel: Unremarkable. No obstruction. No mucosal thickening. Appendix: No evidence of appendicitis. Intraperitoneal space: Unremarkable. No free air. No significant fluid collection. Vasculature: Atherosclerotic calcification within the abdominal vasculature. Lymph nodes: Unremarkable. No enlarged lymph nodes. Urinary bladder: Contrast in the urinary bladder from earlier CT chest. Reproductive: Unremarkable as visualized. Bones/joints: Degenerative changes in the lumbar spine with fusion at L4-L5. Soft tissues: Unremarkable. Other findings: Previous granulomatous exposure. IMPRESSION: 1. Moderate pleural effusions bilaterally with adjacent dependent atelectasis. 2. Multiple large cortical renal cysts bilaterally. Largest from the midpole left kidney measures 12 x 9 x 15 cm (AP/TV/SI) with significant mass effect upon adjacent structures. COMMENTS: Consistent with the [employer]'s Incidental Findings Committee white paper (J Am Esteban Radiol 2018): Any incidental renal lesion less than 1 cm or classified as too small to characterize, or any incidental cystic renal lesion characterized as simple-appearing, is likely benign. No follow-up imaging is recommended for these lesions per consensus recommendations based on imaging criteria.
--- NOTE | 2023-10-06 08:10 | P.PN_ITS ---
Subjective *Date: 10/06/23 *Time: 16:21 Interval history: Patient looks marginally better this morning. Opens eyes and converses on exam. Still quite fatigued but interactive. Knows who she is and that she is at the hospital. Does not know who I am. Is oriented only to self and place. Says she just does not feel good. Does not specify what does not feel well. No nausea or vomiting. Stable on 2 L oxygen. Afebrile. Blood pressure improved. Medical Exam Vital signs and Labs for Last 24 Hours: Vital Signs Temp Pulse Pulse Resp BP BP Pulse Ox 10/06/23 06:00 97.7 F 84 18 157/90 H 100 10/06/23 04:00 80 10/06/23 04:00 97.6 F 64 14 129/68 100 10/06/23 03:15 97.7 F 73 17 148/91 H 99 10/06/23 02:15 97.9 F 82 18 141/75 H 99 10/06/23 02:00 97.9 F 76 18 126/75 97 10/06/23 01:45 97.9 F 76 18 126/75 97 10/06/23 00:45 97.7 F 62 14 109/55 L 100 10/06/23 00:40 16 100 10/06/23 00:30 97.9 F 71 16 120/48 L 100 10/06/23 00:15 97.9 F 85 16 121/52 L 100 10/06/23 00:00 90 10/06/23 00:00 97.9 F 88 16 120/62 98 10/06/23 00:00 97.9 F 88 16 120/62 98 10/05/23 23:55 97.9 F 73 16 133/61 100 10/05/23 23:50 97.9 F 82 20 142/67 H 97 10/05/23 23:45 97.9 F 83 18 108/61 L 99 10/05/23 23:40 18 99 10/05/23 23:40 97.9 F 82 18 114/55 L 99 10/05/23 22:00 97.5 F L 72 14 92/65 L 99 10/05/23 21:45 97.0 F L 79 16 116/58 L 99 10/05/23 20:45 96.7 F L 69 17 125/60 99 10/05/23 20:20 96.7 F L 77 16 119/60 97 10/05/23 20:00 80 10/05/23 20:00 80 10/05/23 20:00 73 16 120/58 L 98 10/05/23 19:20 96.2 F L 82 18 125/58 L 100 10/05/23 19:00 10/05/23 18:20 96.2 F L 90 16 110/45 L 97 10/05/23 18:05 96.0 F L 65 18 115/58 L 100 10/05/23 17:50 96.0 F L 78 20 95/53 L 100 10/05/23 17:35 96.6 F L 69 20 99/59 L 100 10/05/23 17:30 96.4 F L 63 20 116/58 L 100 10/05/23 17:25 96.4 F L 65 20 118/53 L 100 10/05/23 17:20 96.4 F L 81 18 114/61 100 10/05/23 17:05 96.7 F L 87 18 108/56 L 100 10/05/23 17:00 10/05/23 15:44 97.9 F 70 16 120/51 L 98 10/05/23 15:34 98 F 90 16 102/66 L 10/05/23 14:30 64 12 113/57 L 100 10/05/23 14:01 63 12 122/74 100 10/05/23 13:30 70 16 124/67 100 10/05/23 13:00 77 13 106/43 L 100 10/05/23 12:45 76 15 99 10/05/23 12:34 98 F 97 H 12 104/60 L 100 O2 Del Method O2 Flow Rate 10/06/23 06:00 Nasal Cannula 2 10/06/23 04:00 10/06/23 04:00 Nasal Cannula 2 10/06/23 03:15 10/06/23 02:15 10/06/23 02:00 Nasal Cannula 2 10/06/23 01:45 10/06/23 00:45 10/06/23 00:40 Nasal Cannula 2 10/06/23 00:30 10/06/23 00:15 10/06/23 00:00 10/06/23 00:00 Nasal Cannula 2 10/06/23 00:00 10/05/23 23:55 10/05/23 23:50 10/05/23 23:45 10/05/23 23:40 Nasal Cannula 2 10/05/23 23:40 10/05/23 22:00 Nasal Cannula 2 10/05/23 21:45 10/05/23 20:45 10/05/23 20:20 10/05/23 20:00 10/05/23 20:00 10/05/23 20:00 Nasal Cannula 2 10/05/23 19:20 10/05/23 19:00 Nasal Cannula 2 10/05/23 18:20 10/05/23 18:05 10/05/23 17:50 10/05/23 17:35 10/05/23 17:30 10/05/23 17:25 10/05/23 17:20 10/05/23 17:05 10/05/23 17:00 Nasal Cannula 2 10/05/23 15:44 Nasal Cannula 2 10/05/23 15:34 10/05/23 14:30 10/05/23 14:01 10/05/23 13:30 Nasal Cannula 2 10/05/23 13:00 Nasal Cannula 2 10/05/23 12:45 10/05/23 12:34 Nasal Cannula 2 Intake and Output 10/05/23 10/06/23 10/06/23 23:59 07:59 15:59 Intake Total 2200 / 2200 250 / 250 Output Total 1150 / 1150 1200 / 1200 Balance 1050 / 1050 -950 / -950 Intake: Intake, Oral Amount 0 / 0 0 / 0 Intake, Total IV Amount 1949 Azithromycin 500 mg In 0.9 % 250 / 250 Sodium Chloride 250 ml @ 250 mls/hr IV ONCE ONE Rx#:[id number] Cefepime HCl 1 gm In 0.9 % 50 / 50 Sodium Chloride 50 ml @ 100 mls /hr IV ONCE ONE Rx#:[id number] Cefepime HCl 2 gm In 0.9 % 100 / 100 Sodium Chloride 100 ml @ 200 mls/hr IV Q12H [facility] Rx#: [id number] KCl 10mEq/100ml 100 ml @ 100 300 / 300 mls/hr IV Q1H [facility] Rx#:[id number] Lactated Ringers 1000ML 1,000 1000 / 1000 ml @ 999 mls/hr IV .Q1H1M [facility] Rx#:[id number] Vancomycin HCl 750 mg In 0.9 % 250 / 250 Sodium Chloride 250 ml @ 125 mls/hr IV ONCE ONE Rx#:[id number] Intake (Blood Product) Amt 250 / 250 250 / 250 Red Blood Cells Unit 0 / 0 250 / 250 [id number] Red Blood Cells Unit 250 / 250 [id number] Output: Output, Urine Amount 1150 / 1150 1200 / 1200 Other: Number of Unmeasured Voids 0 0 Weight 40.45 kg Patient Weight 10/06/23 23:59 Weight 40.45 kg Laboratory Results - last 24 hr 10/05/23 12:39: WBC 9.1, RBC 1.62 L*, Hgb 6.7 L*, Hct 20.9 L*, MCV 128.5 H, MCH 41.5 H*, MCHC 32.3, RDW 20.0 H, Plt Count 215, MPV 8.6, Neut % (Auto) 80.6 H, Lymph % (Auto) 9.9 L, [place] % (Auto) 4.1, Eos % (Auto) 5.2, Baso % (Auto) 0.3, Neut # (Auto) 7.3, Lymph # (Auto) 0.9, [place] # (Auto) 0.4, Eos # (Auto) 0.5 H, Baso # (Auto) 0.0, Sodium 132 L, Potassium 3.1 L, Chloride 76 L, Carbon Dioxide 56 H*, Anion Gap 3.1 L, BUN 30 H, Creatinine 0.70, Estimated Creat Clear 26, Estimated GFR 79, Est GFR ( Amer) 95, Glucose 104 H, Calcium 8.3 L, Total Bilirubin 0.6, AST 41 H, ALT 26, Alkaline Phosphatase 82, Troponin I 0.06 H, Total Protein 6.0 L, Albumin 2.8 L, Globulin 3.2, Albumin/Globulin Ratio 0.9 L, Urine Color Yellow, Urine Appearance Clear, Urine pH 6.0, Ur Specific [place] 1.010, Urine Protein 1+, Urine Glucose (UA) Negative, Urine Ketones Negative, Urine Blood Negative, Urine Nitrate Negative, Urine Bilirubin Negative, Urine Urobilinogen 0.2, Ur Leukocyte Esterase Negative, Urine RBC Occasional, Urine WBC Occasional, Ur Squamous Epith Cells 3-5, Urine Bacteria Trace, Hyaline Casts 3-5 10/05/23 12:58: VBG pH 7.44 H, VBG pCO2 82.9 H, VBG pO2 40.8 H, VBG HCO3 54.5 H, VBG Total CO2 57.1 H, VBG O2 Saturation 72.3 H, VBG Base Excess 30.3 H, VBG Lactic Acid 1.2 10/05/23 14:46: Chlamy pneumoniae PCR Not detected, Adenovirus (PCR) Not detected, B. pertussis DNA (PCR) Not detected, Coronavirus OC43 (PCR) Not detected, Coronavirus HKU1 (PCR) Not detected, Coronavirus 229E (PCR) Not detected, SARS-CoV-2 (PCR) Not detected, Coronavirus NL63 (PCR) Not detected, Human Metapneumovir PCR Not detected, Influenza A (H1) PCR Not detected, Influ A (H1N1/09) PCR Not detected, Influenza A (H3) PCR Not detected, Influenza Type A (PCR) Not detected, Influenza Type B (PCR) Not detected, M. pneumoniae (PCR) Not detected, Parainfluenza 1 (PCR) Not detected, Parainfluenza 2 (PCR) Not detected, Parainfluenza 3 (PCR) Not detected, Parainfluenza 4 (PCR) Not detected, RSV (PCR) Not detected, Entero/Rhino (PCR) Not detected 10/05/23 15:12: Ammonia < 9 L, Vitamin B12 > 1000 H, Folate > 20.00, Blood Type A Positive, Antibody Screen Negative, Crossmatch (AHG) See Detail 10/05/23 16:51: Phosphorus 3.4, Magnesium 2.0, Troponin I 0.05 H, NT-Pro-B Natriuret Pep [id number] H 10/05/23 19:20: Troponin I 0.05 H 10/05/23 21:50: Hgb 6.4 L*, Hct 18.3 L* 10/06/23 03:17: Hgb 9.1 L D, Hct 26.6 L 10/06/23 04:19: WBC 10.2, RBC 2.51 L D, Hgb 9.0 L, Hct 27.3 L, MCV 109.8 H, MCH 36.1 H, MCHC 32.9, RDW 25.2 H* D, Plt Count 160 D, MPV 8.7, Neut % (Auto) 82.2 H, Lymph % (Auto) 6.9 L, [place] % (Auto) 4.1, Eos % (Auto) 6.4, Baso % (Auto) 0.4, Neut # (Auto) 8.4 H, Lymph # (Auto) 0.7, [place] # (Auto) 0.4, Eos # (Auto) 0.7 H, Baso # (Auto) 0.0, Sodium 132 L, Potassium 3.3 L, Chloride 79 L, Carbon Dioxide 55 H*, Anion Gap 1.3 L, BUN 24 H, Creatinine 0.60, Estimated Creat Clear 24, Estimated GFR 94, Est GFR ( Amer) 114, Glucose 85, Calcium 7.8 L, Phosphorus 3.6, Magnesium 1.7 D, Total Bilirubin 1.2, AST 49 H, ALT 27, Alkaline Phosphatase 74, Total Protein 5.4 L, Albumin 2.6 L, Globulin 2.8, Albumin/Globulin Ratio 0.9 L I & O for Labs for Last 24 Hours: Intake & Output 10/03/23 10/04/23 10/05/23 10/06/23 23:59 23:59 23:59 23:59 Intake Total 2200 / 2200 250 / 250 Output Total 1150 / 1150 1200 / 1200 Balance 1050 / 1050 -950 / -950 Weight 40.455 kg 40.45 kg Constitutional: Present mild distress, cachectic, chronically ill appearing and cooperative Head: Present atraumatic and normocephalic ENT: Present normal exam Comment:: Bitemporal wasting. Loss of periorbital fat. Neck: Present trachea midline Comment:: JVD Respiratory: Present prolonged expiratory phase, crackles, normal respiratory effort and able to speak in complete sentences; Absent rhonchi or wheezes Comment:: Crackles in bilateral bases Cardiac: Present Regular Rate Comment:: Irregularly irregular GI: Present soft and normal bowel sounds; Absent distention or tenderness Extremities: Present normal inspection and full ROM; Absent edema Skin: Present intact; Absent erythema Neuro: Present Grossly Intact, alert, awake and moves all extremities Comment:: Oriented to self and place, globally weak Assessment and Plan *Assessment and plan (1) Acute on chronic diastolic (congestive) heart failure: Status: Acute Category: Medical Code(s): I50.33 - Acute on chronic diastolic (congestive) heart failure (2) Anemia, chronic disease: Status: Acute Category: Medical Code(s): D63.8 - Anemia in other chronic diseases classified elsewhere (3) Multifocal pneumonia: Status: Acute Category: Medical Code(s): J18.9 - Pneumonia, unspecified organism (4) MDS (myelodysplastic syndrome): Status: Acute Category: Medical Code(s): D46.9 - Myelodysplastic syndrome, unspecified (5) Acute encephalopathy: Status: Acute Category: Medical Code(s): G93.40 - Encephalopathy, unspecified (6) Anxiety: Status: Chronic Category: Medical Code(s): F41.9 - Anxiety disorder, unspecified (7) Hypertension: Status: Chronic Category: Medical Code(s): I10 - Essential (primary) hypertension (8) Cachexia: Status: Acute Category: Medical Code(s): R64 - Cachexia Plan 88-year-old female with progressive decline over the past few months. Most precipitously over the past 2 days. Brought in due to weakness and confusion. Found to be anemic in the ER with concern for dyspnea. Discussed case with ER physician, request admission for further management of patient's weakness, weight loss, anemia. I agreed to admit for further management. Additional labs show the patient has significantly elevated BNP concerning for CHF exacerbation. Patient is cachectic and very ill. Strong clinical concern for potential decline, prognosis guarded. Condition serious. Does appear marginally improved today. More alert. Continues to necessitate inpatient care. Goals of care discussion with family at bedside. Awaiting therapy eval. Problems addressed as follows: Acute on chronic diastolic heart failure Chronic hypoxemic respiratory failure -Continue supplemental oxygen as needed, goal sats greater 90%. Currently on 2 L -BNP greater than 10,000. Responding to diuretics. Negative half liter in the past 24 hours. - Cortisol level elevated at 20. No adrenal insufficiency at this time. -Lasix 40 mg twice daily. Monitor for bump in creatinine as sign of euvolemia. -Echo obtained, concern for dilated IVC that does not collapse with inspiration and dilated right ventricle. Preliminary read shows elevated right-sided pressures and possible pulmonary hypertension. -Will consult pulmonology and cardiology to see patient on Sunday. Metabolic alkalosis: Bicarb 55. Differential includes adrenal abnormality, contraction alkalosis due to diuretic, compensation for chronic respiratory failure. acetazolamide 250 mg twice daily to address metabolic alkalosis. Pneumonia: Empiric coverage with azithromycin, cefepime, vancomycin given recent hospital exposure. -Per my review of CTA of her chest, no pulmonary emboli. Does have significant effusions right worse than left with atelectasis. Do not appreciate significant focal consolidation however cannot rule out pneumonia underlying her atelectasis. -CTA of chest also identified large lesion in her abdomen. -Blood cultures pending, continue antibiotics for minimum 48 hours. Renal cyst: Large cyst on CT abdomen per my review. Discussed case with on-call urology 3 MDs/[facility] at . They have imaging showing that it was present, unclear if it was the same size but at least present and identified on a CT of her chest as far back as 2011. This time it appears to be very large simple cyst. Will not move forward with any intervention given the chronicity of this lesion and patient's current clinical state. Atrial fibrillation: Hypertension: - continue digoxin 125 mcg daily -Blood pressure is increased through the day. Increase carvedilol to 6.25 mg twice daily -Resume Imdur 30 mg daily -If hemoglobin remains stable, will resume Xarelto Anemia Suspected myelodysplastic syndrome -Acute on chronic. Macrocytosis present with MCV greater than 120. B12 greater than thousand. Folate pending. -Hemoglobin threshold for transfusion less than 7. Status post 2 units packed red blood cells. Hemoglobin improved to 9. No active signs of bleeding. Repeat CBC in the morning -Peripheral smear obtained and pending, history of myelodysplastic syndrome. Will attempt to obtain records. -continue pantoprazole 40 mg IV twice daily. Cachexia: Complicates all aspects of her care. Will add nutritional supplement with meals. DNR Cardiac diet Xarelto
[2023-10-06] MEDS: DIGOXIN 0.125MG TABLET 125 MCG PO (09:12)
[2023-10-06] MEDS: POTASSIUM CHLORIDE 20MEQ TAB 20 MEQ PO ×3 (09:12→21:11)
[2023-10-06] MEDS: CARVEDILOL 3.125MG TABLET 3.125 MG PO (09:13)
[2023-10-06] MEDS: KCl 10mEq/100ml 100 ML 100 MEQ IV ×2 (09:13→10:15)
[2023-10-06] MEDS: acetaZOLAMIDE 250 MG TABLET PO ×2 (09:13→21:12)
[2023-10-06] MEDS: PANTOPRAZOLE 40MG VIAL 40 MG IV ×2 (09:13→21:11)
[2023-10-06] MEDS: FUROSEMIDE 40MG/4ML VIAL 40 MG IV ×2 (09:13→15:44)
[2023-10-06] MEDS: SODIUM CHLORIDE 0.9% 10ML VIAL 10 ML IV (09:13)
--- NOTE | 2023-10-06 09:57 | P.CONPHA_ITS ---
Pharmacy Consult Date: 10/06/23 Time: 09:57 Referring provider: DR. SOLORIO Reason for Consult:: VANCOMYCIN DOSING Allergies Allergy/AdvReac Type Severity Reaction Status Date / Time penicillin G Allergy Intermediate Hives Verified 10/05/23 19:33 Home Medications Medication Instructions Recorded Confirmed Type albuterol sulfate 90 mcg/actuation 1 - 2 inh inhalation Q4-6H PRN 10/05/23 10/05/23 History aerosol inhaler Shortness Of Breath Or Wheezing alprazolam 0.25 mg tablet 0.25 mg PO TID 10/05/23 10/05/23 History atorvastatin 10 mg tablet 10 mg PO HS 10/05/23 10/05/23 History benzonatate 200 mg capsule 200 mg PO TIDP PRN Cough 10/05/23 10/05/23 History carvedilol 3.125 mg tablet 3.125 mg PO BID 10/05/23 10/05/23 History digoxin 125 mcg (0.125 mg) tablet 125 mcg PO DAILY 10/05/23 10/05/23 History isosorbide mononitrate 30 mg 30 mg PO DAILY 10/05/23 10/05/23 History tablet,extended release 24 hr metolazone 2.5 mg tablet See Rx Instructions .Route 10/05/23 10/05/23 History .COMPLEX Fluid Overload omeprazole 40 mg capsule,delayed 40 mg PO AM 10/05/23 10/05/23 History release pantoprazole 40 mg tablet,delayed 40 mg PO HS 10/05/23 10/05/23 History release potassium chloride 20 mEq 20 meq PO DAILYP PRN Fluid Overload 10/05/23 10/05/23 History tablet,extended release rivaroxaban 15 mg tablet (Xarelto) 15 mg PO DAILY 10/05/23 10/05/23 History New Prescriptions to Start Prescriptions: Height: 1.6 m Weight: 40.45 kg Laboratory Results:: Laboratory Results - last 24 hr 10/05/23 12:39: WBC 9.1, RBC 1.62 L*, Hgb 6.7 L*, Hct 20.9 L*, MCV 128.5 H, MCH 41.5 H*, MCHC 32.3, RDW 20.0 H, Plt Count 215, MPV 8.6, Neut % (Auto) 80.6 H, Lymph % (Auto) 9.9 L, [place] % (Auto) 4.1, Eos % (Auto) 5.2, Baso % (Auto) 0.3, Neut # (Auto) 7.3, Lymph # (Auto) 0.9, [place] # (Auto) 0.4, Eos # (Auto) 0.5 H, Baso # (Auto) 0.0, Sodium 132 L, Potassium 3.1 L, Chloride 76 L, Carbon Dioxide 56 H*, Anion Gap 3.1 L, BUN 30 H, Creatinine 0.70, Estimated Creat Clear 26, Estimated GFR 79, Est GFR ( Amer) 95, Glucose 104 H, Calcium 8.3 L, Total Bilirubin 0.6, AST 41 H, ALT 26, Alkaline Phosphatase 82, Troponin I 0.06 H, Total Protein 6.0 L, Albumin 2.8 L, Globulin 3.2, Albumin/Globulin Ratio 0.9 L, Urine Color Yellow, Urine Appearance Clear, Urine pH 6.0, Ur Specific [place] 1.010, Urine Protein 1+, Urine Glucose (UA) Negative, Urine Ketones Negative, Urine Blood Negative, Urine Nitrate Negative, Urine Bilirubin Negative, Urine Urobilinogen 0.2, Ur Leukocyte Esterase Negative, Urine RBC Occasional, Urine WBC Occasional, Ur Squamous Epith Cells 3-5, Urine Bacteria Trace, Hyaline Casts 3-5 10/05/23 12:58: VBG pH 7.44 H, VBG pCO2 82.9 H, VBG pO2 40.8 H, VBG HCO3 54.5 H, VBG Total CO2 57.1 H, VBG O2 Saturation 72.3 H, VBG Base Excess 30.3 H, VBG Lactic Acid 1.2 10/05/23 14:46: Chlamy pneumoniae PCR Not detected, Adenovirus (PCR) Not detected, B. pertussis DNA (PCR) Not detected, Coronavirus OC43 (PCR) Not detected, Coronavirus HKU1 (PCR) Not detected, Coronavirus 229E (PCR) Not detected, SARS-CoV-2 (PCR) Not detected, Coronavirus NL63 (PCR) Not detected, Human Metapneumovir PCR Not detected, Influenza A (H1) PCR Not detected, Influ A (H1N1/09) PCR Not detected, Influenza A (H3) PCR Not detected, Influenza Type A (PCR) Not detected, Influenza Type B (PCR) Not detected, M. pneumoniae (PCR) Not detected, Parainfluenza 1 (PCR) Not detected, Parainfluenza 2 (PCR) Not detected, Parainfluenza 3 (PCR) Not detected, Parainfluenza 4 (PCR) Not detected, RSV (PCR) Not detected, Entero/Rhino (PCR) Not detected 10/05/23 15:12: Ammonia < 9 L, Vitamin B12 > 1000 H, Folate > 20.00, Blood Type A Positive, Antibody Screen Negative, Crossmatch (AHG) See Detail 10/05/23 16:51: Phosphorus 3.4, Magnesium 2.0, Troponin I 0.05 H, NT-Pro-B Natriuret Pep [id number] H 10/05/23 19:20: Troponin I 0.05 H 10/05/23 21:50: Hgb 6.4 L*, Hct 18.3 L* 10/06/23 03:17: Hgb 9.1 L D, Hct 26.6 L 10/06/23 04:19: WBC 10.2, RBC 2.51 L D, Hgb 9.0 L, Hct 27.3 L, MCV 109.8 H, MCH 36.1 H, MCHC 32.9, RDW 25.2 H* D, Plt Count 160 D, MPV 8.7, Neut % (Auto) 82.2 H, Lymph % (Auto) 6.9 L, [place] % (Auto) 4.1, Eos % (Auto) 6.4, Baso % (Auto) 0.4, Neut # (Auto) 8.4 H, Lymph # (Auto) 0.7, [place] # (Auto) 0.4, Eos # (Auto) 0.7 H, Baso # (Auto) 0.0, Sodium 132 L, Potassium 3.3 L, Chloride 79 L, Carbon Dioxide 55 H*, Anion Gap 1.3 L, BUN 24 H, Creatinine 0.60, Estimated Creat Clear 24, Estimated GFR 94, Est GFR ( Amer) 114, Glucose 85, Calcium 7.8 L, Phosphorus 3.6, Magnesium 1.7 D, Total Bilirubin 1.2, AST 49 H, ALT 27, Alkaline Phosphatase 74, Total Protein 5.4 L, Albumin 2.6 L, Globulin 2.8, Albumin/Globulin Ratio 0.9 L Medical History: Medical History (Updated 10/05/23 @ 22:47 by Henry Klein MD) High cholesterol Paroxysmal A-fib Chronically low serum potassium CHF (congestive heart failure) GERD (gastroesophageal reflux disease) Closed fracture of right fibula and tibia Essential (primary) hypertension Anxiety Encephalopathy, unspecified Pneumonia, unspecified organism Anemia, unspecified Anemia in other chronic diseases classified elsewhere Myelodysplastic syndrome, unspecified Assessment and Plan Assessment and plan all Dx Assessment and Plan for all problems:: Pharmacokinetic dosing service Objective: Patient: Floor: Age: 88 yo Serum creatinine: 0.60 mg/dL Height: 63.0 Inches Weight (kg): 40.5 Assessment: IBW (kg): 52.40 Dosing wt(kg): 40.5 Estimated Creatinine clearance (ml/min): 40.6 CRCL method: Cockcroft and Gault using ibw(default). Drug selected: Vancomycin Loading dose (mg): Vd (liters): 34.4 (factor used: 0.85 L/kg) [place] (hr-1): 0.038 Half life (hrs): 18.24 CLvanco=?? 1.307 L/hr Recommended dose: 750 mg Interval: 24 hrs Infusion time (hrs): 2.0 Predicted peak (mcg/mL): 35.1 Predicted trough (mcg/mL): 15.21 Total body weight is being used for vancomycin dosing. Recommendations: Give Vancomycin 750 mg q 24 hrs with an expected Cpeak of 35.1 mcg/ml and an expected Ctrough of 15.21 mcg/ml AUC 0-24 /QING Data: QING 0.5 mcg/mL:?? AUC/QING:? 1147.7 QING 1.0 mcg/mL:?? AUC/QING:? 573.8 --------- QING 1.5 mcg/mL:?? AUC/QING:? 382.6 QING 2.0 mcg/mL:?? AUC/QING:? 286.9 Thank you for the consult, will continue to follow. -AEC GUPTA, JEROMED
--- NOTE | 2023-10-06 11:05 | PC.NURSE ---
turned pt from 2L NC to 1L NC tolerating well at first then dropped to 85%. pt placed back on 2L NC NOTED AT 100%.
[2023-10-06] MEDS: AZITHROMYCIN 500 MG in 0.9 % SODIUM CHLORIDE 250 ML 250 MG IV (14:01)
--- NOTE | 2023-10-06 14:22 | P.EN_ITS ---
Advance care planning note: Active diagnosis: Pulmonary hypertension, diastolic heart failure, pleural effusions, failure to thrive, weight loss, renal cysts, pneumonia The patient's active diagnoses are of sufficient risk that focused discussion on advanced care planning is indicated in order to allow the patient to thoughtfully consider personal goals of care; and, if situations arise that prevent the ability to personally give input, to ensure appropriate representation of their personal desires through documentation or informed surrogate decision makers. Discussion: Persons present and participating in discussion: , son, patient Discussion: Discussed patient's condition. Discussed her change in clinical status over the past week. Discussed her decline from being mobile with a walker to weak and bedbound in her current state. Discussed the family's displeasure with multiple different nursing homes over the past year. Discussed goals of focusing on comfort and ways to get her home with support. would like for her to get back to her level of function prior to getting sick 10 to 14 days ago. Strong concern she has no reserve and has gotten quite weak. Necessitating significant assistance at this time. Discussed returning to rehab versus home with hospice. Family open to both options but really interested in getting patient home. Wanting to continue aggressive measures to try and treat her current condition including treatment of her heart failure, respiratory failure, possible pneumonia. Will discuss further discharge planning and po tential for hospice pending her improvement and change/response to therapy over the coming days. Questions answered. Surrogate decision maker is . CODE STATUS to remain DNR Time spent: Total time spent [id number] in education and discussion directly related to advance care plannin minutes Morning of 10/06/2023 during rounds.
--- NOTE | 2023-10-06 14:55 | P.CONPHA_ITS ---
Pharmacy Intervention Comments: MEDICATION RECONCILIATION COMPLETED ON PATIENT USING EXTERNAL FILL HISTORY FROM PHARMACY, MAR FROM HALFW[facility], AND WILLOW REPORT. -JEROME WALLISD
--- NOTE | 2023-10-06 14:55 | HMH.PHAINT1 ---
Pharmacy Intervention Comments: MEDICATION RECONCILIATION COMPLETED ON PATIENT USING EXTERNAL FILL HISTORY FROM PHARMACY, MAR FROM CUSTODIAL, AND WILLOW REPORT. -JREOME WALLISD
[2023-10-06] MEDS: CEFEPIME HCL 1 GM in 0.9 % SODIUM CHLORIDE 50 ML IV (15:42)
[2023-10-06] MEDS: ISOSORBIDE MONO 30MG TAB.ER.24H 30 MG PO (15:42)
[2023-10-06 16:19] LABS: Chloride 84 mmol/L (98-107); Potassium 4.6 mmoL/L (3.5-5.1); Sodium 132 mmol/L (136-145)
[2023-10-06 16:22] LABS: Blood Urea Nitrogen 24 mg/dl (7-17); Calcium 7.7 mg/dl (8.4-10.2); Creatinine Clearance Estimated 24 mL/min (50-200); Estimated Glomerular Filt Rate 68 ml/min (>60); GFR (African American) 82 ML/MIN (>60); Glucose 108 mg/dl (74-100)
[2023-10-06 16:48] LABS: Anion Gap 4.6 mEq/L (5-15); Carbon Dioxide 48 mmol/L (22.0-30.0)
[2023-10-06] MEDS: RIVAROXABAN 15MG TABLET 15 MG PO (16:53)
[2023-10-06] MEDS: VANCOMYCIN HCL 750 MG in 0.9 % SODIUM CHLORIDE 250 ML 125 MG IV (16:53)
--- NOTE | 2023-10-06 17:18 | HMH.PTEV ---
Physical Therapy Evaluation Rehab PT IP Evaluation Start: 10/06/23 10:31 Freq: ONCE Status: Active Protocol: Document 10/06/23 16:54 HWADE (Rec: 10/06/23 17:18 HWADE [id number]) Subjective/History History History Pt is a 88 year old female that presented to [facility] ED on 10/05/23 with reports of weakness and confusion. While in ED, pt was found to be anemic with concern for dyspnea. Pt was admitted with a primary diagnosis of acute on chronic diastolic heart failure. PMH significant for CHF Subjective Subjective Pt presents supine, asleep in bed with spouse at side. Subjective history obtained from pt's spouse. Per spouse, pt was recently at and was d/c to SNF on 10/03/23. Spouse reports that since she has been at a SNF, she has had a rapid decline in functional/ mental status. Prior to hospital admission pt ambulated household distances with a rollator. Pt's spouse denied reports of falls at home. Pt awakes to PT voice, AOx4. Pt agreeable to PT evaluation, denies reports of pain at rest. Pt reports she feels terrible , but unable to specify what is wrong. Pt performed rolling R with SBA, demonstrated outward signs of discomfort but unable to state what was hurting. Further activity was deferred d/t pt's discomfort. Pt demonstrated grossly 3+/5 BLE MMT during assessment. Following evaluation, pt left supine in bed, call light and all needs within reach. Spouse at side. New diagnosis of cancer in past 12 No months? Rehab PT IP Eval Objective Appearance Patient Behavior Anxious,Fatigued Patient Orientation Person,Place,Time,Situation Difficulty following instructions mild Speech Pattern Soft-Spoken Ambulation Patient Able to Ambulate No Balance Ability to Arise Unable Transfers Bed Transfer Ability Supervision/Stand by ROM RLE PT ROM Status WFL LLE PT ROM Status WFL MMT RLE PT MMT ABN Abnormal MMT Grade RLE MMT grossly 3+/5 LLE PT MMT ABN Abnormal MMT Grade LLE MMT grossly 3+/5 Rehab PT IP prob,goals,plan Problems Date of Evaluation: 10/06/23 PT IP Problems Bed Mobility,Transfers,Gait, Balance,Self care,Safety Rehab Potential Rehab Potential Fair Equipment Needs Assistive Devices Rolling / Wheeled Walker Plan PT Intervention Plan Bed Mobility,Transfers,Gait, Balance,Self care,Safety, Therapeutic Exercise PT Plan Frequency Daily Duration LOS Discharge Goals Bed Transfer Ability Supervision/Stand by Sit to Stand Chair Transfer Ability Moderate x 1 (50% assist) Ambulation Assistive Device Rolling Walker Ambulation Distance (feet) 25 Discharge Plan PT Discharge Plan Pt participated in PT initial evaluation this date. Pt demonstrates functional mobility below baseline and would benefit from skilled PT intervention during IP admission to address identified deficits, reduce risk of falls and prevent functional decline. Once medically stable, recommend pt to d/c to STR to address remaining deficits. Eval Complexity Eval Charge Codes 06906 - Moderate Complexity PHYSICIAN CERTIFICATION: I certify the specified therapy services for Zohreh Quezada are required, authorized, and reviewed every 30 days.
--- NOTE | 2023-10-06 18:24 | PC.NURSE ---
Addendum entered by Sumaya Garcia RN 10/06/23 19:00: PATIENT AND AWARE OF NEED FOR SPUTUM SAMPLE. PROVIDED WITH CUP TO COLLECT EARLIER AND NO SUCCESS YET Addendum entered by Sumaya Garcia RN 10/06/23 18:49: BED IN LOWEST POSITION. CALL LIGHT WITHIN REACH. BED ALARM ON TO PROMOTE SAFETY. Original Note: A&OX4. PT HAS TOLERATED 1L NC WELL. RESPIRATIONS REGULAR AND UNLABORED. ACTIVE BOWEL SOUNDS HEARD IN ALL 4 QUADRANTS. SOFT AND NONTENDER ABDOMEN. NO BM THUS FAR. PURWICK IN PLACE WITH CLEAR YELLOW URINE NOTED. PT HAS APPEARED VERY TIRED TODAY. SHE HAS SLEPT OFF AND ON ALL DAY. +1 PULSES NOTED THROUGHOUT. LUNG SOUNDS DIMINISHED THROUGHOUT. OR SON HAS BEEN AT BEDSIDE THROUGHOUT SHIFT. PT TURNED Q2 HOURS TO PREVENT SKIN BREAKDOWN.
[2023-10-06] MEDS: MEMANTINE 10MG TABLET 5 MG PO (21:11)
[2023-10-06] MEDS: CARVEDILOL 6.25MG TABLET 6.25 MG PO (21:12)
[2023-10-07] VITALS (20 sets, daily range): BP systolic 83–138; BP diastolic 31–76; PULSE 58–106; RESP 11–43; TEMP 36.3–37.3; O2SAT 92–100; BMI 15.7
[2023-10-07] MEDS: CALCIUM CARBONATE 500MG CHEWTAB 500 MG PO (00:27)
[2023-10-07] MEDS: ALPRAZolam 0.25MG TABLET 0.25 MG PO ×2 (00:52→23:55)
[2023-10-07] MEDS: ONDANSETRON 4MG/2ML VIAL 4 MG IV (00:52)
[2023-10-07] MEDS: ALUMINUM/MAGNESIUM/SIMETHICONE 30ML UDC 30 ML PO (00:52)
[2023-10-07] MEDS: CEFEPIME HCL 1 GM in 0.9 % SODIUM CHLORIDE 50 ML IV (03:32)
[2023-10-07 07:07] LABS: Basophils # 0.1 K/mm3 (0-0.2); Basophils % 0.7 % (0.1-2.0); Eosinophils % 7.2 % (0.1-12.0); Hematocrit 31.6 % (37.0-47.0); Lymphocytes % 7.5 % (10-50); Mean Corpuscular HGB Conc 31.8 g/dL (31.8-35.4); Mean Corpuscular Hemoglobin 35.9 pg (27.0-31.2); Mean Corpuscular Volume 112.8 fl (81-99); Mean Platelet Volume 9.2 fl (7.4-10.4); Monocytes # 0.4 K/mm3 (0.1-1.0); Monocytes % 3.3 % (1.7-9.3); Neutrophils # 10.7 K/mm3 (1.8-7.8); Neutrophils % 81.3 % (37.0-80.0); Platelet Count 194 K/mm3 (142-424); Red Cell Distribution Width 23.4 % (11.5-17.5); White Blood Count 13.2 K/mm3 (4.8-10.8)
[2023-10-07 07:13] LABS: Alanine Aminotransferase 26 U/L (12-78); Albumin Level 2.7 g/dl (3.5-5.0); Albumin/Globulin Ratio 0.9 (1.1-1.8); Alkaline Phosphatase 81 U/L (38-126); Aspartate Amino Transferase 37 U/L (14-36); Blood Urea Nitrogen 20 mg/dl (7-17); Chloride 86 mmol/L (98-107); Creatinine Clearance Estimated 24 mL/min (50-200); Estimated Glomerular Filt Rate 68 ml/min (>60); GFR (African American) 82 ML/MIN (>60); Glucose 102 mg/dl (74-100); Magnesium 1.9 mg/dl (1.6-2.3); Potassium 3.6 mmoL/L (3.5-5.1); Sodium 134 mmol/L (136-145); Total Protein,Serum 5.7 g/dl (6.3-8.2)
[2023-10-07 07:26] LABS: Anion Gap 1.6 mEq/L (5-15); Carbon Dioxide 50 mmol/L (22.0-30.0)
[2023-10-07] MEDS: DIGOXIN 0.125MG TABLET 125 MCG PO (09:02)
[2023-10-07] MEDS: acetaZOLAMIDE 250 MG TABLET PO (09:02)
[2023-10-07] MEDS: SODIUM CHLORIDE 0.9% 10ML VIAL 10 ML IV (09:02)
[2023-10-07] MEDS: POTASSIUM CHLORIDE 20MEQ TAB 20 MEQ PO ×3 (09:02→21:44)
[2023-10-07] MEDS: PANTOPRAZOLE 40MG VIAL 40 MG IV ×2 (09:02→21:41)
[2023-10-07] MEDS: CARVEDILOL 6.25MG TABLET 6.25 MG PO (09:03)
[2023-10-07] MEDS: ISOSORBIDE MONO 30MG TAB.ER.24H 30 MG PO (09:03)
[2023-10-07] MEDS: MEMANTINE 10MG TABLET 5 MG PO ×2 (09:03→21:42)
[2023-10-07] MEDS: FUROSEMIDE 40MG/4ML VIAL 40 MG IV ×2 (09:04→17:05)
--- NOTE | 2023-10-07 12:29 | P.PN_ITS ---
Subjective *Date: 10/07/23 *Time: 12:29 Interval history: The patient is seen and examined today at bedside. The patient is accompanied by her , son and [id number]. I am accompanied by her nurse Ruthann. The and son provide history. The reports that he has i dentified improvement in the patient's encephalopathy. He reports that she was able to eat her breakfast this morning. He reports 2 weeks ago she was her normal self walking with her formal wheeled walker. She has macular degeneration with decreased visual acuity. She normally sits and watches TV throughout the day. She is 1 assist for bathing and hygiene. She usually eats by herself. He reports that her memory is good. Nursing staff reports that she remains afebrile with stable heart rates some low blood pressures. She is saturating appropriately on 2 L of oxygen via nasal cannula which is her usual home oxygen requirement. She does not wear positive pressure ventilation at home. Her presenting VBG pCO2 was 83. Exam Data for Last 24 hours Vital signs and Labs for Last 24 Hours: Temp Pulse Resp BP Pulse Ox O2 Del Method O2 Flow Rate 97.3 F L 70 11 L 97/31 L 99 Nasal Cannula 2 10/07/23 11:43 10/07/23 09:02 10/07/23 04:00 10/07/23 06:00 10/07/23 09:02 10/07/23 09:02 10/07/23 09:02 FiO2 40 10/07/23 10:54 Laboratory Results - last 24 hr 10/06/23 15:55: Sodium 132 L, Potassium 4.6 D, Chloride 84 L, Carbon Dioxide 48 H*, Anion Gap 4.6 L, BUN 24 H, Creatinine 0.80 D, Estimated Creat Clear 24, Estimated GFR 68, Est GFR ( Amer) 82 D, Glucose 108 H D, Calcium 7.7 L 10/07/23 06:23: WBC 13.2 H D, RBC 2.80 L, Hgb 10.0 L, Hct 31.6 L, MCV 112.8 H, MCH 35.9 H, MCHC 31.8, RDW 23.4 H, Plt Count 194, MPV 9.2, Neut % (Auto) 81.3 H, Lymph % (Auto) 7.5 L, Brooks % (Auto) 3.3, Eos % (Auto) 7.2, Baso % (Auto) 0.7, Neut # (Auto) 10.7 H, Lymph # (Auto) 1.0, Brooks # (Auto) 0.4, Eos # (Auto) 1.0 H, Baso # (Auto) 0.1, Sodium 134 L, Potassium 3.6 D, Chloride 86 L, Carbon Dioxide 50 H*, Anion Gap 1.6 L, BUN 20 H, Creatinine 0.80, Estimated Creat Clear 24, Estimated GFR 68, Est GFR ( Amer) 82, Glucose 102 H, Calcium 8.0 L, Magnesium 1.9 D, Total Bilirubin 1.0, AST 37 H, ALT 26, Alkaline Phosphatase 81, Total Protein 5.7 L, Albumin 2.7 L, Globulin 3.0, Albumin/Globulin Ratio 0.9 L I & O for Last 24 hours: Intake & Output 10/04/23 10/05/23 10/06/23 10/07/23 23:59 23:59 23:59 23:59 Intake Total 2200 / 2200 1330 / 1330 Output Total 1150 / 1150 2950 / 2950 400 / 400 Balance 1050 / 1050 -1620 / -1620 -400 / -400 Weight 40.455 kg 40.45 kg 40.4 kg Microbiology Reports for the Last 24 Hours: Microbiology 10/05/23 13:00 Blood Blood Culture - Preliminary NO GROWTH AFTER 24 HOURS 10/05/23 13:12 Blood Blood Culture - Preliminary NO GROWTH AFTER 24 HOURS Constitutional Constitutional: no acute distress, thin, cachectic, chronically ill appearing, cooperative and somnolent *Routine HEENT Exam Head: Present normocephalic Eye: Present EOMI ENT: Present mucous membranes moist *Routine Neck Exam Neck: Present trachea midline; Absent lymphadenopathy Comments: Cervical kyphosis *Routine Respiratory Exam Respiratory: Present decreased breath sounds, rhonchi and diminished air movement *Routine Cardiovascular Exam Cardiovascular: Present RRR and murmur *Routine Abdominal Exam Abdominal: Present soft and normoactive bowel sounds; Absent tenderness *Routine Extremities Exam Extremities: Present normal capillary refill; Absent edema Comments: diminished muscle mass Routine Back/Spine/Pelvis Exam Back/Spine: Present kyphosis *Routine Skin Exam Skin: Present normal turgor; Absent rash *Routine Neurological Exam Neurological: Present moving all extremities; Absent sensory deficit or motor deficit Routine Psychiatric Exam Psychiatric: Present cooperative Assessment and Plan *Assessment and plan (1) Acute on chronic respiratory failure with hypoxia and hypercapnia: Status: Acute Category: Medical Code(s): J96.21 - Acute and chronic respiratory failure with hypoxia; J96.22 - Acute and chronic respiratory failure with hypercapnia (2) Centrilobular emphysema: Status: Acute Category: Medical Code(s): J43.2 - Centrilobular emphysema (3) Bilateral pleural effusion: Status: Acute Category: Medical Code(s): J90 - Pleural effusion, not elsewhere classified (4) Acute on chronic diastolic (congestive) heart failure: Status: Acute Category: Medical Code(s): I50.33 - Acute on chronic diastolic (congestive) heart failure (5) Myocardial injury: Status: Acute Category: Medical Code(s): I5A - Non-ischemic myocardial injury (non-traumatic) (6) Anemia, chronic disease: Status: Acute Category: Medical Code(s): D63.8 - Anemia in other chronic diseases classified elsewhere (7) Acute metabolic encephalopathy: Status: Acute Category: Medical Code(s): G93.41 - Metabolic encephalopathy (8) Macrocytosis: Status: Acute Category: Medical Code(s): D75.89 - Other specified diseases of blood and blood-forming organs (9) Renal cyst, left: Status: Acute Category: Medical Code(s): N28.1 - Cyst of kidney, acquired (10) Cachexia: Status: Acute Category: Medical Code(s): R64 - Cachexia Plan 88-year-old female with progressive decline over the past few months. Presented to the ED with weakness, confusion and dyspnea with a VBG pCO2=83. Found to be anemic in the ER with hemoglobin 6.7 and chronic anticoagulation with Xarelto reported. No hematochezia, melena or abdominal pain reported. Additional labs with significantly elevated BNP concerning for CHF exacerbation and mild troponin release. Prognosis guarded. Condition serious. Problems addressed as follows: Acute on chronic respiratory failure with hypoxia and hypercapnia (VBG pCO2=83) Centrilobular emphysema Thoracic and cervical kyphosis Bilateral pleural effusions Aspiration pneumonia Concerns for pulmonary hypertension Pulse oximetry monitoring Oxygen therapy to maintain appropriate oxygen saturations Currently requiring 2 L which is usual home O2 requirement Echocardiogram pending NIPPV therapy CT chest with centrilobular emphysema and large pleural effusions Blood cultures no growth to date MRSA screen pending Pulmonology consultation Trelegy inhalation therapy Alfredo/Suzanna inhalation therapy as needed IV Rocephin Doxycycline p.o. Trending labs and inflammatory markers Acute on chronic HFpEF (stage C/NYHA IV) Myocardial injury type II Telemetry monitoring Cardiology consultation Echocardiogram pending Non-ACS troponin static trend ECG pending Accurate I's and O's Sodium and fluid restriction Routine weights Holding antiplatelet therapy with presenting hemoglobin 6.7 High-dose statin therapy IV loop diuretic therapy Drug therapy requiring intensive monitoring for toxicity Routine electrolytes, magnesium and creatinine Intermittent proBNP assessments Beta-bob therapy ARB therapy with transition to ARNI pending BP eval's SGLT2 inhibitor therapy Aldosterone antagonist therapy NTG as needed chest pain Acute metabolic encephalopathy Hypercapnia noted Routine nursing interaction CT head with atrophy and periventricular chronic ischemic changes Avoiding sedatives Acute on chronic anemia Macrocytosis Trending CBC 2 units PRBCs (10/05/2023) B12 level normal Folic acid level normal PPI therapy twice daily Paroxysmal atrial fibrillation Telemetry monitoring Beta-bob therapy Digoxin therapy Holding anticoagulation therapy with presenting hemoglobin 6.7 Large left renal cysts Chronicity noted (conversation with urology [facility]) CT abdomen and pelvis with large left renal cyst Trending urine output Routine renal profiles Avoiding NSAIDs Cachexia BMI 16 Complicates all aspects of her care. Will add nutritional supplement with meals. VTE prophylaxis: SCD's CODE STATUS: DNR/DNI POA: Travon- The patient is hospitalized 8 2 with above diagnoses complicated by her advanced age. We appreciate consultant in ergonomics and safety evaluations and recommendations. Case management is assisting with discharge planning. Barriers to discharge currently include consultant in ergonomics and safety evaluation and recommendations. Expected date of discharge cannot be determined at present time.
[2023-10-07 15:16] LABS: Peripheral Smear Review Scanned Result
[2023-10-07] MEDS: CEFTRIAXONE SODIUM 1 GM in 0.9 % SODIUM CHLORIDE 50 ML IV (17:04)
--- NOTE | 2023-10-07 17:17 | PC.NURSE ---
pt has remained in bed this shift. pt family state that pt appears more sleepy today compared to previous day. pt bp was noted to be soft throughout the day and ending of previous shift per charts. pt is alert to self only. pt left at approx 1600 and pt has since been calling out for her by name. once pt is reminded/informed of where her is, she nods her head. nad noted. pt resting in bed at this time. pt was ordered bipap by Dr Curiel this am. pt tolerated bipap when first placed on pt for approx 2.5 hrs. pt was placed back on nc for lunch then back on bipap at 1440. pt did not tolerated bipap at that time. after wearing mask for approx 1hr, pt began to tug and pull at mask dislodging it from her face. pt placed back on nc and will remain off of bipap until this evening in hopes that she will tolerate mask after supper.
[2023-10-07] MEDS: ATORVASTATIN 40MG TABLET 40 MG PO (21:42)
--- NOTE | 2023-10-07 23:30 | PC.NURSE ---
Patient very restless in bed, asking for . Informed patient of family members whereabouts, and proceeded to ask orientation questions. Patient able to only state name appropriately. Respiratory therapy present and attempted to place bipap on patient, to which patient states that she is ok with wearing. Once bipap was placed, patient proceeded to try and take mask off, and pulling at face. Patient is hard to redirect for bipap placement, and decision was made to place patient back on 2LNC at that time. Current sats 98% on 2L. Patient tolerating well, and repositioned to comfort.
[2023-10-08] VITALS (22 sets, daily range): BP systolic 62–132; BP diastolic 27–70; PULSE 56–119; RESP 17–40; TEMP 36.5–37.2; O2SAT 90–100; BMI 15.7
--- NOTE | 2023-10-08 05:01 | PC.NURSE ---
Patient bladder scanned due to oliguria. BS showed 262ml in bladder at this time. Also spoke with IRMA Gr on patient slow response to stimulation and increased lethargy. Patient placed on bipap and tolerating. No new orders at this time.
--- NOTE | 2023-10-08 06:18 | ECG_ITS ---
APPROVED REPORT Exam: Resting ECG HR:92 bpm ECG Measurements Heart Rate 92 AXES QRSd 76 QRS 97 QT 279 T -52 QTc 328 Conclusion ATRIAL FIBRILLATION BORDERLINE RIGHT AXIS DEVIATION [QRS AXIS > 90] ST DEVIATION AND MODERATE T-WAVE ABNORMALITY, CONSIDER LATERAL ISCHEMIA [-0.1+ mV T-WAVE IN I/aVL/V5/V6] ABNORMAL ECG UNCONFIRMED REPORT Electronically signed by : Santana Moses MD 10/10/2023 08:35:02
[2023-10-08 07:01] LABS: Basophils # 0.1 K/mm3 (0-0.2); Basophils % 0.4 % (0.1-2.0); Eosinophils # 0.9 K/mm3 (0.0-0.4); Lymphocytes # 0.5 K/mm3 (0.7-4.5); Platelet Count 190 K/mm3 (142-424)
[2023-10-08 07:06] LABS: Alanine Aminotransferase 26 U/L (12-78); Albumin Level 2.9 g/dl (3.5-5.0); Albumin/Globulin Ratio 0.9 (1.1-1.8); Alkaline Phosphatase 134 U/L (38-126); Aspartate Amino Transferase 53 U/L (14-36); Bilirubin,Total 0.9 mg/dl (0.2-1.3); Blood Urea Nitrogen 28 mg/dl (7-17); Calcium 8.3 mg/dl (8.4-10.2); Chloride 89 mmol/L (98-107); Creatinine Clearance Estimated 24 mL/min (50-200); Estimated Glomerular Filt Rate 52 ml/min (>60); GFR (African American) 63 ML/MIN (>60); Globulin 3.2 g/dL (1.3-3.2); Glucose 100 mg/dl (74-100); Potassium 4.8 mmoL/L (3.5-5.1); Sodium 136 mmol/L (136-145); Total Protein,Serum 6.1 g/dl (6.3-8.2)
[2023-10-08 07:15] LABS: Eosinophils % 4.8 % (0.1-12.0); Hematocrit 38.7 % (37.0-47.0); Lymphocytes % 2.7 % (10-50); Mean Corpuscular HGB Conc 30.5 g/dL (31.8-35.4); Mean Corpuscular Hemoglobin 35.2 pg (27.0-31.2); Mean Corpuscular Volume 115.2 fl (81-99); Mean Platelet Volume 9.4 fl (7.4-10.4); Monocytes # 0.3 K/mm3 (0.1-1.0); Monocytes % 1.7 % (1.7-9.3); Neutrophils # 16.2 K/mm3 (1.8-7.8); Neutrophils % 90.4 % (37.0-80.0); Red Blood Count 3.36 M/mm3 (4.20-5.40); Red Cell Distribution Width 22.6 % (11.5-17.5)
[2023-10-08 07:16] LABS: Anion Gap 5.8 mEq/L (5-15); Carbon Dioxide 46 mmol/L (22.0-30.0)
[2023-10-08 07:20] LABS: Hemoglobin 11.8 g/dL (12.2-16.2)
[2023-10-08 07:21] LABS: MANUAL DIFFERENTIAL MANUAL DIFFERENTIAL (MANUAL DIFF)
--- NOTE | 2023-10-08 08:10 | SW/DCPLANNER ---
Addendum entered by [facility] 10/11/23 14:04: Per A.D. plan is to continue Hospice inpatient. Addendum entered by [facility] 10/10/23 09:38: A.D. w/ [facility] was onsite this AM to evaluate and speak w/ patient and family members. Addendum entered by [facility] 10/09/23 15:32: Patient to be admitted Hospice Inpatient as of 3:30PM today. Addendum entered by [facility] 10/09/23 14:50: Per Diana murphy/ [facility] the plan is to admit patient as Hospice inpatient today. I have updated Dr Aguilar. Addendum entered by [facility] 10/09/23 11:03: discussed end of life care w/ patient's family this AM. Family is agreeable to end of life care and patient information being fax[facility] to [facility] at this time. seems more interested in patient returning home w/ Hospice services. has requested that Hospice nurse come to [facility] to speak w/ him once his son arrives at 2PM today. I will relay information to Diana murphy/ [facility]. I will also update [facility] murphy/ Bovina. Original Note: This patient currently resides at [facility] level of care. Updated patient information has been faxed to [facility] at this time. Discharge date is unknown.
[2023-10-08 08:44] LABS: NT Pro Brain Natriuretic Pep. 9740 pg/mL (0-450)
[2023-10-08] MEDS: CARVEDILOL 3.125MG TABLET 3.125 MG PO (09:00)
[2023-10-08] MEDS: PANTOPRAZOLE 40MG TABLET 40 MG PO (09:00)
[2023-10-08] MEDS: POTASSIUM CHLORIDE 20MEQ TAB 20 MEQ PO ×2 (09:01→12:23)
[2023-10-08] MEDS: EMPAGLIFLOZIN 10MG TABLET 10 MG PO (09:01)
[2023-10-08] MEDS: IRBESARTAN 75MG TABLET 75 MG PO (09:01)
[2023-10-08] MEDS: DOXYCYCLINE HYCL 100 MG TABLET PO (09:02)
[2023-10-08] MEDS: FUROSEMIDE 40MG/4ML VIAL 40 MG IV (09:02)
[2023-10-08] MEDS: DIGOXIN 0.125MG TABLET 125 MCG PO (09:02)
[2023-10-08] MEDS: SPIRONOLACTONE 25MG TABLET 12.5 MG PO (09:03)
[2023-10-08] MEDS: MEMANTINE 10MG TABLET 5 MG PO (09:04)
[2023-10-08 09:33] LABS: Lactate Venous 1.3 mmol/L (0.4-2.0); VBG HCO3 45.7 mmol/L (23-30); VBG Oxygen Saturation 91.5 % (50-70); VBG PH 7.34 mmol/L (7.31-7.41); VBG PO2 61.1 mmol/L (28-40); VBG Total CO2 48.4 mmol/L (23-27)
[2023-10-08 09:35] LABS: VBG PCO2 86.3 mmol/L (35-51)
[2023-10-08 09:49] LABS: Eosinophils % 4 % (0-3); Lymphocytes % 5 % (10-50); Macrocytosis 3+; Monocytes % 2 % (2-9); Neutrophils % 89 % (42-76); Platelet Estimate Normal; Total Cells Counted 100
--- NOTE | 2023-10-08 10:11 | HMH.OTEV ---
OT Inpatient Evaluation Rehab OT IP Evaluation Start: 10/06/23 10:30 Freq: ONCE Status: Active Protocol: Document 10/08/23 09:55 CAITLYN (Rec: 10/08/23 10:10 CAITLYN [id number]) Rehab OT IP Assessment Subjective History 88-year-old female with progressive decline over the past few months. Most precipitously over the past 2 days. Brought in due to weakness and confusion. Found to be anemic in the ER with concern for dyspnea. Discussed case with ER physician, request admission for further management of patient's weakness, weight loss, anemia. I agreed to admit for further management. Additional labs show the patient has significantly elevated BNP concerning for CHF exacerbation. Patient is cachectic and very ill. Strong clinical concern for potential decline, prognosis guarded. Condition serious. Problems addressed as follows: Acute on chronic diastolic heart failure Chronic hypoxemic respiratory failure -Continue supplemental oxygen as needed, goal sats greater 90%. Currently on 2 L -BNP greater than 10,000. Will diurese with Lasix 80 mg IV x 1. - Cortisol level pending -Lasix 80 mg once IV on admission. Will administer 40 mg twice daily. Monitor for bump in creatinine as sign of euvolemia. -Echo obtained, concern for dilated IVC that does not collapse with inspiration and dilated right ventricle. Preliminary read shows elevated right-sided pressures and possible pulmonary hypertension. Metabolic alkalosis: Bicarb 54 . Differential includes adrenal abnormality, contraction alkalosis due to diuretic, compensation for chronic respiratory failure. Initiate acetazolamide 250 mg twice daily to address metabolic alkalosis. Pneumonia: Empiric coverage with azithromycin, cefepime, vancomycin given recent hospital exposure. CTA of chest pending to evaluate for pneumonia versus pulmonary edema related to heart failure . Blood cultures pending. Continue antibiotics for at least 48 hours pending Atrial fibrillation: Holding regulation, need. Will continue digoxin 125 mcg daily . Heart rate currently controlled at 72. Blood pressure soft at 92/65 maintain MAP >65 holding carvedilol and isosorbide Anemia Suspected myelodysplastic syndrome -Acute on chronic. Macrocytosis present with MCV greater than 120. B12 greater than thousand. Folate pending. -Hemoglobin threshold for transfusion less than 7. Receiving 1 unit packed red blood cells. With 2-hour post H&H. Transfuse as necessary. -On anticoagulation for her A- fib. Will hold at this time. -Peripheral smear obtained and pending, history of myelodysplastic syndrome. Will attempt to obtain records . -continue pantoprazole 40 mg IV twice daily. Cachexia: Complicates all aspects of her care. Will add nutritional supplement with meals. DNR Cardiac diet holding anticoagulation in setting of anemia. Patient lives at home with in 1 story home with 1 -2 MARCY. OT used for patient's PLOF due to patient being [place] and difficulty answering. Patient used a RW to ambulate ~2 weeks ago. assist with ADLs and fx'l mobility at home. assist with transportation and IADL. Subjective Ok. Patient sitting upright in bed at arrival of tx. Patient required TD to complete bed mobility and self feeding task this date. Objective Right Upper Extremity Gross ROM WFL Left Upper Extremity Gross ROM WFL Bed Mobility bed mobility - supine/sit Assist Level Total/Dependent (100%) Feeding Ability Total Assistance Rehab OT IP prob,goals,plan Problems Date of Evaluation: 10/08/23 OT IP Problems Bed Mobility,Transfers,Balance ,Self care,Safety Rehab Potential Rehab Potential Good Plan OT intervention Plan Bed Mobility,Transfers,Balance ,Self care,Safety,Therapeutic Exercise OT Plan Frequency Daily Duration LOS Discharge Goals Bed Mobility Ability Assistance x2 Feeding Ability Needs Supervision Discharge Plan OT Discharge Plan Patient was previously at [facility] for rehabiltation prior to admission at [facility]. Recommend placement after medically stable d/c. Patient to continue skilled OT Services while here at [facility]. Eval Complexity Eval Charge Codes 22460 - Low Complexity PHYSICIAN CERTIFICATION: I certify the specified therapy services for Zohreh Quezada are required, authorized, and reviewed every 30 days.
[2023-10-08 10:12] LABS: Hypochromasia 1+
--- NOTE | 2023-10-08 10:15 | PC.NURSE ---
Notified hospitalist of patient's blood pressures. Awaiting orders.
--- NOTE | 2023-10-08 10:45 | P.CONS_ITS ---
History of Present Illness History of present illness: Ms. Wan is a 88-year-old female prior smoker has not smoked in the last 15 years carries a diagnosis of questionable COPD on oxygen supplementation at baseline 2 L for the last 6 months along with inhalers on as-needed basis recently discharged from rehab went to rehab presented to the ER complaining of worsening respiratory distress [facility] Disclaimer: The information contained in this section may have been updated after the patient was seen, as this information can be updated by other users. Medical History High cholesterol Paroxysmal A-fib Chronically low serum potassium CHF (congestive heart failure) GERD (gastroesophageal reflux disease) Closed fracture of right fibula and tibia Essential (primary) hypertension Anxiety Encephalopathy, unspecified Pneumonia, unspecified organism Anemia, unspecified Anemia in other chronic diseases classified elsewhere Myelodysplastic syndrome, unspecified Social History Smoking Status: Never smoker alcohol intake: never current occupational status: retired Travel in the last 8 weeks: None household members: spouse housing: house current occupational exposures/hazards: No caffeine: Yes Review of Systems Review of Systems Review of systems:: unable to obtain Review of systems (narrative): Not responding appropriately to verbal commands Pulmonology Exam Inpatient Vital signs and Labs for Last 24 Hours: Temp Pulse Resp BP Pulse Ox O2 Del Method O2 Flow Rate 98.4 F 86 20 82/48 L 100 Nasal Cannula 2 10/08/23 08:00 10/08/23 10:02 10/08/23 10:02 10/08/23 10:04 10/08/23 10:02 10/08/23 10:02 10/08/23 10:02 FiO2 30 10/08/23 06:25 Laboratory Results - last 24 hr 10/08/23 05:28: WBC 18.0 H D, RBC 3.36 L, Hgb 11.8 L D, Hct 38.7, MCV 115.2 H, M CH 35.2 H, MCHC 30.5 L, RDW 22.6 H, Plt Count 190, MPV 9.4, Neut % (Auto) 90.4 H , Lymph % (Auto) 2.7 L, [place] % (Auto) 1.7, Eos % (Auto) 4.8, Baso % (Auto) 0.4, Neut # (Auto) 16.2 H, Lymph # (Auto) 0.5 L, [place] # (Auto) 0.3, Eos # (Auto) 0.9 H, Baso # (Auto) 0.1, Total Counted 100, Neutrophils % (Manual) 89 H, L ymphocytes % (Manual) 5 L, Monocytes % (Manual) 2, Eosinophils % (Manual) 4 H, Platelet Estimate Normal, Hypochromasia 1+, Macrocytosis 3+, Sodium 136, P otassium 4.8 D, Chloride 89 L, Carbon Dioxide 46 H*, Anion Gap 5.8, BUN 28 H D, Creatinine 1.00 D, Estimated Creat Clear 24, Estimated GFR 52 L, Est GFR ( Amer) 63 D, Glucose 100, Calcium 8.3 L, Total Bilirubin 0.9, AST 53 H D, ALT 26, Alkaline Phosphatase 134 H, NT-Pro-B Natriuret Pep 9740 H, Total Protein 6.1 L, Albumin 2.9 L, Globulin 3.2, Albumin/Globulin Ratio 0.9 L 10/08/23 09:26: VBG pH 7.34, VBG pCO2 86.3 H, VBG pO2 61.1 H, VBG HCO3 45.7 H, V BG Total CO2 48.4 H, VBG O2 Saturation 91.5 H, VBG Base Excess 20.0 H, VBG Lactic Acid 1.3 I & O for Labs for Last 24 Hours: Intake & Output 10/05/23 10/06/23 10/07/23 10/08/23 23:59 23:59 23:59 23:59 Intake Total 2200 / 2200 1330 / 1330 310 / 360 110 / 110 Output Total 1150 / 1150 2950 / 2950 750 / 750 150 / 150 Balance 1050 / 1050 -1620 / -1620 -440 / -390 -40 / -40 Weight 89 lb 3 oz 89 lb 2.832 oz 89 lb 1.068 oz 89 lb 1.068 oz Microbiology Reports for the Last 24 Hours: Microbiology 10/05/23 13:00 Blood Blood Culture - Preliminary NO GROWTH AFTER 48 HOURS 10/05/23 13:12 Blood Blood Culture - Preliminary NO GROWTH AFTER 48 HOURS Constitutional: Present severe distress Head: Present normocephalic and atraumatic ENT: Present normal exam and normal oropharynx Neck: Present normal inspection Respiratory: Present respiratory distress, rhonchi, crackles and diminished air movement; Absent wheezes or able to speak in complete sentences Cardiac: Present Tachycardia and radial pulses present; Absent S1/S2 GI: Present soft and distention; Absent tenderness or guarding Rectal (female): Present deferred (female): Present deferred Skin: Present intact; Absent cyanosis or jaundice Neuro: Absent alert, awake or oriented x 3 Extremities: Present normal inspection; Absent clubbing or cyanosis Psychiatric: Present normal affect and cooperative Meds Home Medications and Allergies Home Medications Medication Instructions Recorded Confirmed Type albuterol sulfate 90 mcg/actuation 2 inh inhalation Q4HP PRN 10/05/23 10/06/23 History aerosol inhaler Shortness Of Breath Or Wheezing alprazolam 0.25 mg tablet 0.25 mg PO TID 10/05/23 10/05/23 History atorvastatin 10 mg tablet 10 mg PO HS 10/05/23 10/05/23 History benzonatate 200 mg capsule 200 mg PO TIDP PRN Cough 10/05/23 10/05/23 History carvedilol 3.125 mg tablet 3.125 mg PO BID 10/05/23 10/05/23 History digoxin 125 mcg (0.125 mg) tablet 125 mcg PO DAILY 10/05/23 10/05/23 History isosorbide mononitrate 30 mg 30 mg PO DAILY 10/05/23 10/05/23 History tablet,extended release 24 hr pantoprazole 40 mg tablet,delayed 40 mg PO HS 10/05/23 10/05/23 History release potassium chloride 20 mEq 20 meq PO Q48H 10/05/23 10/06/23 History tablet,extended release rivaroxaban 15 mg tablet (Xarelto) 15 mg PO DAILY 10/05/23 10/05/23 History folic acid 1 mg tablet 1 mg PO DAILY 10/06/23 10/06/23 History furosemide 20 mg tablet 20 mg PO Q48H 10/06/23 10/06/23 History New Prescriptions to Start Prescriptions: Allergies Allergy/AdvReac Type Severity Reaction Status Date / Time penicillin G Allergy Intermediate Hives Verified 10/05/23 19:33 Results Laboratory Findings 10/08/23 05:28 10/08/23 05:28 Abnormal lab findings: Abnormal Labs 10/05/23 10/05/23 10/05/23 12:39 12:58 15:12 WBC RBC 1.62 L* Hgb 6.7 L* Hct 20.9 L* MCV 128.5 H MCH 41.5 H* MCHC RDW 20.0 H Neut % (Auto) 80.6 H Lymph % (Auto) 9.9 L Neut # (Auto) Lymph # (Auto) Eos # (Auto) 0.5 H Neutrophils % (Manual) Lymphocytes % (Manual) Eosinophils % (Manual) VBG pH 7.44 H VBG pCO2 82.9 H VBG pO2 40.8 H VBG HCO3 54.5 H VBG Total CO2 57.1 H VBG O2 Saturation 72.3 H VBG Base Excess 30.3 H Sodium 132 L Potassium 3.1 L Chloride 76 L Carbon Dioxide 56 H* Anion Gap 3.1 L BUN 30 H Estimated GFR Glucose 104 H Calcium 8.3 L AST 41 H Alkaline Phosphatase Ammonia < 9 L Troponin I 0.06 H NT-Pro-B Natriuret Pep Total Protein 6.0 L Albumin 2.8 L Albumin/Globulin Ratio 0.9 L Vitamin B12 > 1000 H Cortisol 23.0 H Crossmatch (AHG) See Detail 10/05/23 10/05/23 10/05/23 16:51 19:20 21:50 WBC RBC Hgb 6.4 L* Hct 18.3 L* MCV MCH MCHC RDW Neut % (Auto) Lymph % (Auto) Neut # (Auto) Lymph # (Auto) Eos # (Auto) Neutrophils % (Manual) Lymphocytes % (Manual) Eosinophils % (Manual) VBG pH VBG pCO2 VBG pO2 VBG HCO3 VBG Total CO2 VBG O2 Saturation VBG Base Excess Sodium Potassium Chloride Carbon Dioxide Anion Gap BUN Estimated GFR Glucose Calcium AST Alkaline Phosphatase Ammonia Troponin I 0.05 H 0.05 H NT-Pro-B Natriuret Pep 38779 H Total Protein Albumin Albumin/Globulin Ratio Vitamin B12 Cortisol Crossmatch (AHG) 10/06/23 10/06/23 10/06/23 03:17 04:19 15:55 WBC RBC 2.51 L D Hgb 9.1 L D 9.0 L Hct 26.6 L 27.3 L MCV 109.8 H MCH 36.1 H MCHC RDW 25.2 H* D Neut % (Auto) 82.2 H Lymph % (Auto) 6.9 L Neut # (Auto) 8.4 H Lymph # (Auto) Eos # (Auto) 0.7 H Neutrophils % (Manual) Lymphocytes % (Manual) Eosinophils % (Manual) VBG pH VBG pCO2 VBG pO2 VBG HCO3 VBG Total CO2 VBG O2 Saturation VBG Base Excess Sodium 132 L 132 L Potassium 3.3 L Chloride 79 L 84 L Carbon Dioxide 55 H* 48 H* Anion Gap 1.3 L 4.6 L BUN 24 H 24 H Estimated GFR Glucose 108 H D Calcium 7.8 L 7.7 L AST 49 H Alkaline Phosphatase Ammonia Troponin I NT-Pro-B Natriuret Pep Total Protein 5.4 L Albumin 2.6 L Albumin/Globulin Ratio 0.9 L Vitamin B12 Cortisol Crossmatch (AHG) 10/07/23 10/08/23 10/08/23 06:23 05:28 09:26 WBC 13.2 H D 18.0 H D RBC 2.80 L 3.36 L Hgb 10.0 L 11.8 L D Hct 31.6 L MCV 112.8 H 115.2 H MCH 35.9 H 35.2 H MCHC 30.5 L RDW 23.4 H 22.6 H Neut % (Auto) 81.3 H 90.4 H Lymph % (Auto) 7.5 L 2.7 L Neut # (Auto) 10.7 H 16.2 H Lymph # (Auto) 0.5 L Eos # (Auto) 1.0 H 0.9 H Neutrophils % (Manual) 89 H Lymphocytes % (Manual) 5 L Eosinophils % (Manual) 4 H VBG pH VBG pCO2 86.3 H VBG pO2 61.1 H VBG HCO3 45.7 H VBG Total CO2 48.4 H VBG O2 Saturation 91.5 H VBG Base Excess 20.0 H Sodium 134 L Potassium Chloride 86 L 89 L Carbon Dioxide 50 H* 46 H* Anion Gap 1.6 L BUN 20 H 28 H D Estimated GFR 52 L Glucose 102 H Calcium 8.0 L 8.3 L AST 37 H 53 H D Alkaline Phosphatase 134 H Ammonia Troponin I NT-Pro-B Natriuret Pep 9740 H Total Protein 5.7 L 6.1 L Albumin 2.7 L 2.9 L Albumin/Globulin Ratio 0.9 L 0.9 L Vitamin B12 Cortisol Crossmatch (AHG) Assessment and Plan *Assessment and plan (1) Centrilobular emphysema: Status: Acute Category: Medical Code(s): J43.2 - Centrilobular emphysema (2) Acute on chronic respiratory failure with hypoxia and hypercapnia: Status: Acute Category: Medical Code(s): J96.21 - Acute and chronic respiratory failure with hypoxia; J96.22 - Acute and chronic respiratory failure with hypercapnia (3) Multifocal pneumonia: Status: Acute Category: Medical Code(s): J18.9 - Pneumonia, unspecified organism (4) Bilateral pleural effusion: Status: Acute Category: Medical Code(s): J90 - Pleural effusion, not elsewhere classified Plan Ms. Wan is a 88-year-old female prior smoker has not smoked in the last 15 years carries a diagnosis of questionable COPD on oxygen supplementation at baseline 2 L for the last 6 months along with inhalers on as-needed basis recently discharged from rehab went to rehab presented to the ER complaining of worsening respiratory distress VBG upon admission continue to show chronic hypercarbic respiratory failure with a pH of 7.44 and pCO2 of 83. Continue to show hypoxia. Labs on admission, neutrophilic predominant leukocytosis worsening. Severe anemia at Hb of 6.7 on admission status post transfusion. Hemoglobin normalized. Worsening BUN and creatinine. Afebrile. Hemodynamically unstable. Blood cultures and nasal MRSA PCR pending. CTA upon admission evidence of pulmonary embolism. Bilateral pleural effusions moderate right. Right greater than left effusions. Adjacent atelectasis/airspace disease noted. Supraclavicular and retroperitoneal lymphadenopathy noted. No other airspace disease consolidative changes noted. On examination patient appeared lethargic and altered not responding appropriately to verbal stimuli. Plan: -Continue ceftriaxone and doxycycline pending sputum culture results and MRSA PCR. Blood cultures no growth 48 hrs. -DuoNebs every 6 hours on a scheduled basis -Will hold off on performing thoracentesis at this point of time pending clinical improvement. Patient at baseline on 2 L nasal cannula supplementation for the last 6 months. This morning on 1 L saturating 100%. Will follow with arterial blood gas. -Follow with urine output and renal function -Follow with Echocardiogram report -Recommend to also initiate goals of care discussion at this point of time given multiple comorbidities and from the noted to have continued decline in her clinical status within the last 6 months with multiple hospital admissions. # Primary team following on the noted left renal cyst. # Thank you for involving pulmonary in this patient care. Will continue to follow.
--- NOTE | 2023-10-08 10:46 | P.CONCA_ITS ---
History of Present Illness History of Present Illness Consult date: 10/08/23 Requesting physician: Henry Klein Chief complaint: weakness History of present illness: 87-year-old white female with BMI of 16 presented with declining status for several weeks including altered mental status and inability to walk. She is diagnosed with questionable aspiration pneumonia. During her workup she was found to have proBNP of 11,000 with bilateral effusions noted on CT chest. Her is bedside providing additional history and states she has a history of right-sided heart trouble but has not seen a electrical hardware engineer recently and does not know any details. She does have a slight heart murmur on exam. She can follow basic commands like looking at me or squeezing my hand but given no other meaningful communication. [facility] Disclaimer: The information contained in this section may have been updated after the patient was seen, as this information can be updated by other users. Medical History High cholesterol Paroxysmal A-fib Chronically low serum potassium CHF (congestive heart failure) GERD (gastroesophageal reflux disease) Closed fracture of right fibula and tibia Essential (primary) hypertension Anxiety Encephalopathy, unspecified Pneumonia, unspecified organism Anemia, unspecified Anemia in other chronic diseases classified elsewhere Myelodysplastic syndrome, unspecified Social History Smoking Status: Never smoker alcohol intake: never current occupational status: retired Travel in the last 8 weeks: None household members: spouse housing: house current occupational exposures/hazards: No caffeine: Yes Review of Systems Review of Systems Review of systems:: unable to obtain Exam Data for Last 24 hours Vital signs and Labs for Last 24 Hours: Temp Pulse Resp BP Pulse Ox O2 Del Method O2 Flow Rate 98.4 F 86 20 82/48 L 100 Nasal Cannula 2 10/08/23 08:00 10/08/23 10:02 10/08/23 10:02 10/08/23 10:04 10/08/23 10:02 10/08/23 10:02 10/08/23 10:02 FiO2 30 10/08/23 06:25 Laboratory Results - last 24 hr 10/08/23 05:28: WBC 18.0 H D, RBC 3.36 L, Hgb 11.8 L D, Hct 38.7, MCV 115.2 H, MCH 35.2 H, MCHC 30.5 L, RDW 22.6 H, Plt Count 190, MPV 9.4, Neut % (Auto) 90.4 H, Lymph % (Auto) 2.7 L, [place] % (Auto) 1.7, Eos % (Auto) 4.8, Baso % (Auto) 0.4, Neut # (Auto) 16.2 H, Lymph # (Auto) 0.5 L, [place] # (Auto) 0.3, Eos # (Auto) 0.9 H, Baso # (Auto) 0.1, Total Counted 100, Neutrophils % (Manual) 89 H, Lymphocytes % (Manual) 5 L, Monocytes % (Manual) 2, Eosinophils % (Manual) 4 H, Platelet Estimate Normal, Hypochromasia 1+, Macrocytosis 3+, Sodium 136, Potassium 4.8 D, Chloride 89 L, Carbon Dioxide 46 H*, Anion Gap 5.8, BUN 28 H D , Creatinine 1.00 D, Estimated Creat Clear 24, Estimated GFR 52 L, Est GFR ( Amer) 63 D, Glucose 100, Calcium 8.3 L, Total Bilirubin 0.9, AST 53 H D, ALT 26, Alkaline Phosphatase 134 H, NT-Pro-B Natriuret Pep 9740 H, Total Protein 6.1 L, Albumin 2.9 L, Globulin 3.2, Albumin/Globulin Ratio 0.9 L 10/08/23 09:26: VBG pH 7.34, VBG pCO2 86.3 H, VBG pO2 61.1 H, VBG HCO3 45.7 H, VBG Total CO2 48.4 H, VBG O2 Saturation 91.5 H, VBG Base Excess 20.0 H, VBG Lactic Acid 1.3 I & O for Last 24 hours: Intake & Output 10/05/23 10/06/23 10/07/23 10/08/23 23:59 23:59 23:59 23:59 Intake Total 2200 / 2200 1330 / 1330 310 / 360 110 / 110 Output Total 1150 / 1150 2950 / 2950 750 / 750 150 / 150 Balance 1050 / 1050 -1620 / -1620 -440 / -390 -40 / -40 Weight 89 lb 3 oz 89 lb 2.832 oz 89 lb 1.068 oz 89 lb 1.068 oz Microbiology Reports for the Last 24 Hours: Microbiology 10/05/23 13:00 Blood Blood Culture - Preliminary NO GROWTH AFTER 48 HOURS 10/05/23 13:12 Blood Blood Culture - Preliminary NO GROWTH AFTER 48 HOURS Constitutional Constitutional: cachectic and cooperative *Routine HEENT Exam Eye: Present PERRL *Routine Respiratory Exam Respiratory: Present CTA bilaterally; Absent accessory muscle use, wheezes or crackles *Routine Cardiovascular Exam Cardiovascular: Present RRR, Normal S1, Normal S2 and murmur; Absent gallop or rubs *Routine Abdominal Exam Abdominal: Present soft; Absent tenderness *Routine Extremities Exam Extremities: Present pulses intact; Absent cyanosis or edema Comments: Muscle wasting *Routine Skin Exam Skin: Present intact; Absent erythema or wounds *Routine Neurological Exam Neurological: Present alert and oriented X3 Routine Psychiatric Exam Psychiatric: Present cooperative Meds Home Medications and Allergies Home Medications Medication Instructions Recorded Confirmed Type albuterol sulfate 90 mcg/actuation 2 inh inhalation Q4HP PRN 10/05/23 10/06/23 History aerosol inhaler Shortness Of Breath Or Wheezing alprazolam 0.25 mg tablet 0.25 mg PO TID 10/05/23 10/05/23 History atorvastatin 10 mg tablet 10 mg PO HS 10/05/23 10/05/23 History benzonatate 200 mg capsule 200 mg PO TIDP PRN Cough 10/05/23 10/05/23 History carvedilol 3.125 mg tablet 3.125 mg PO BID 10/05/23 10/05/23 History digoxin 125 mcg (0.125 mg) tablet 125 mcg PO DAILY 10/05/23 10/05/23 History isosorbide mononitrate 30 mg 30 mg PO DAILY 10/05/23 10/05/23 History tablet,extended release 24 hr pantoprazole 40 mg tablet,delayed 40 mg PO HS 10/05/23 10/05/23 History release potassium chloride 20 mEq 20 meq PO Q48H 10/05/23 10/06/23 History tablet,extended release rivaroxaban 15 mg tablet (Xarelto) 15 mg PO DAILY 10/05/23 10/05/23 History folic acid 1 mg tablet 1 mg PO DAILY 10/06/23 10/06/23 History furosemide 20 mg tablet 20 mg PO Q48H 10/06/23 10/06/23 History New Prescriptions to Start Prescriptions: Allergies Allergy/AdvReac Type Severity Reaction Status Date / Time penicillin G Allergy Intermediate Hives Verified 10/05/23 19:33 Assessment and Plan *Assessment and plan (1) (HFpEF) heart failure with preserved ejection fraction: Status: Acute Category: Medical Code(s): I50.30 - Unspecified diastolic (congestive) heart failure (2) Cachexia: Status: Acute Category: Medical Code(s): R64 - Cachexia (3) Heart murmur: Status: Acute Category: Medical Code(s): R01.1 - Cardiac murmur, unspecified Plan Acute on Chronic HFpEF - unclear history of right heart failure per - ProBNP 11k, bilateral pulmonary effusions which may or may not be cardiogenic - pt has BMI of 15 and is cachectic, does not appear volume overloaded - Plan: check 2D ECHO, further plans pending results Bilateral Pleural Effusions - CT shows: moderate pleural effusions bilaterally with adjacent dependent atelectasis - Plan: ECHO, antibiotics Mild baseline dementia with acute AMS - secondary to underlying infection? - Plan per Hospitalist Cachexia, BMI 15 - Severe wasting and failure to thrive - needs nutritional supplementation and goals of care Addendum: ECHO shows Mod MR, Severe TR, preserved EF. Agree with gentle diuresis PRN.
--- NOTE | 2023-10-08 11:40 | PC.NURSE ---
Hospitalist made aware of bp , meds d/c'd, no other orders
[2023-10-08 14:51] LABS: ABG PH 7.33 mmol/L (7.35-7.45)
[2023-10-08 14:52] LABS: ABG Base Excess 19.3 mmol/L (-2.4-2.3); ABG HCO3 49 mmhg (22.0-26.0); ABG Oxygen Saturation 97 % (90-100); ABG PCO2 94.6 mmhg (35.0-45.0); ABG PO2 100.5 mmhg (80-100); ABG TCO2 51.9 mmhg (23-27); Allen's Test Acceptable; Oxygen 1L %; Source Right Brachial
[2023-10-08] MEDS: ALPRAZolam 0.25MG TABLET 0.25 MG PO (15:33)
--- NOTE | 2023-10-08 16:10 | PC.NURSE ---
In and out cath pt per hospitalist request. 325 ml out
--- NOTE | 2023-10-08 16:36 | P.PN_ITS ---
Subjective *Date: 10/08/23 *Time: 16:36 Interval history: The patient is seen and examined at bedside today. She is accompanied by her , son and [id number]. I am accompanied by her nurse Maris. Has been reports that she was able to eat some breakfast again today. She has been evaluated by pulmonology and cardiology. Nursing staff report that she remains afebrile with some low blood pressures, stable heart rates and saturating appropriately on supplemental oxygen. She was able to use NIPPV through the night with venous blood gas this morning identifying pCO2 retention. An echocardiogram identifies normal ejection fraction with cardiac valve disease and RVSP 55 to 60 mmHg. Exam Data for Last 24 hours Vital signs and Labs for Last 24 Hours: Temp Pulse Resp BP Pulse Ox O2 Del Method O2 Flow Rate 97.7 F 79 22 83/48 L 100 BiPAP 1 10/08/23 16:00 10/08/23 16:00 10/08/23 16:00 10/08/23 16:00 10/08/23 16:00 10/08/23 16:00 10/08/23 15:15 FiO2 10/08/23 15:16 Laboratory Results - last 24 hr 10/08/23 05:28: WBC 18.0 H D, RBC 3.36 L, Hgb 11.8 L D, Hct 38.7, MCV 115.2 H, MCH 35.2 H, MCHC 30.5 L, RDW 22.6 H, Plt Count 190, MPV 9.4, Neut % (Auto) 90.4 H, Lymph % (Auto) 2.7 L, [place] % (Auto) 1.7, Eos % (Auto) 4.8, Baso % (Auto) 0.4, Neut # (Auto) 16.2 H, Lymph # (Auto) 0.5 L, [place] # (Auto) 0.3, Eos # (Auto) 0.9 H, Baso # (Auto) 0.1, Total Counted 100, Neutrophils % (Manual) 89 H, Lymphocytes % (Manual) 5 L, Monocytes % (Manual) 2, Eosinophils % (Manual) 4 H, Platelet Estimate Normal, Hypochromasia 1+, Macrocytosis 3+, Sodium 136, Potassium 4.8 D, Chloride 89 L, Carbon Dioxide 46 H*, Anion Gap 5.8, BUN 28 H D , Creatinine 1.00 D, Estimated Creat Clear 24, Estimated GFR 52 L, Est GFR ( Amer) 63 D, Glucose 100, Calcium 8.3 L, Total Bilirubin 0.9, AST 53 H D, ALT 26, Alkaline Phosphatase 134 H, NT-Pro-B Natriuret Pep 9740 H, Total Protein 6.1 L, Albumin 2.9 L, Globulin 3.2, Albumin/Globulin Ratio 0.9 L 10/08/23 09:26: VBG pH 7.34, VBG pCO2 86.3 H, VBG pO2 61.1 H, VBG HCO3 45.7 H, VBG Total CO2 48.4 H, VBG O2 Saturation 91.5 H, VBG Base Excess 20.0 H, VBG Lactic Acid 1.3 10/08/23 14:21: Specimen Source Right brachial, O2 % 1l, ABG pH 7.33 L, ABG pCO2 94.6 H, ABG pO2 100.5 H, ABG HCO3 49 H, ABG Total CO2 51.9 H, ABG O2 Saturation 97, ABG Base Excess 19.3 H, Jatin Test Acceptable I & O for Last 24 hours: Intake & Output 10/05/23 10/06/23 10/07/23 10/08/23 23:59 23:59 23:59 23:59 Intake Total 2200 / 2200 1330 / 1330 310 / 360 110 / 110 Output Total 1150 / 1150 2950 / 2950 750 / 750 475 / 475 Balance 1050 / 1050 -1620 / -1620 -440 / -390 -365 / -365 Weight 40.455 kg 40.45 kg 40.4 kg 40.4 kg Microbiology Reports for the Last 24 Hours: Microbiology 10/05/23 13:00 Blood Blood Culture - Preliminary NO GROWTH AFTER 48 HOURS 10/05/23 13:12 Blood Blood Culture - Preliminary NO GROWTH AFTER 48 HOURS Constitutional Constitutional: no acute distress, thin, cachectic, chronically ill appearing, cooperative and somnolent *Routine HEENT Exam Head: Present normocephalic Eye: Present EOMI ENT: Present mucous membranes moist *Routine Neck Exam Neck: Present trachea midline; Absent lymphadenopathy Comments: Cervical kyphosis *Routine Respiratory Exam Respiratory: Present decreased breath sounds, rhonchi and diminished air movement *Routine Cardiovascular Exam Cardiovascular: Present RRR and murmur *Routine Abdominal Exam Abdominal: Present soft and normoactive bowel sounds; Absent tenderness *Routine Extremities Exam Extremities: Present normal capillary refill; Absent edema Comments: diminished muscle mass Routine Back/Spine/Pelvis Exam Back/Spine: Present kyphosis *Routine Skin Exam Skin: Present normal turgor; Absent rash *Routine Neurological Exam Neurological: Present moving all extremities; Absent sensory deficit or motor deficit Routine Psychiatric Exam Psychiatric: Present cooperative Assessment and Plan *Assessment and plan (1) Acute on chronic respiratory failure with hypoxia and hypercapnia: Status: Acute Category: Medical Code(s): J96.21 - Acute and chronic respiratory failure with hypoxia; J96.22 - Acute and chronic respiratory failure with hypercapnia (2) Centrilobular emphysema: Status: Acute Category: Medical Code(s): J43.2 - Centrilobular emphysema (3) Bilateral pleural effusion: Status: Acute Category: Medical Code(s): J90 - Pleural effusion, not elsewhere classified (4) Acute on chronic diastolic (congestive) heart failure: Status: Acute Category: Medical Code(s): I50.33 - Acute on chronic diastolic (congestive) heart failure (5) Myocardial injury: Status: Acute Category: Medical Code(s): I5A - Non-ischemic myocardial injury (non-traumatic) (6) Anemia, chronic disease: Status: Acute Category: Medical Code(s): D63.8 - Anemia in other chronic diseases classified elsewhere (7) Acute metabolic encephalopathy: Status: Acute Category: Medical Code(s): G93.41 - Metabolic encephalopathy (8) Macrocytosis: Status: Acute Category: Medical Code(s): D75.89 - Other specified diseases of blood and blood-forming organs (9) Renal cyst, left: Status: Acute Category: Medical Code(s): N28.1 - Cyst of kidney, acquired (10) Cachexia: Status: Acute Category: Medical Code(s): R64 - Cachexia Plan 88-year-old female with progressive decline over the past few months. Presented to the ED with weakness, confusion and dyspnea with a VBG pCO2=83. Found to be anemic in the ER with hemoglobin 6.7 and chronic anticoagulation with Xarelto reported. No hematochezia, melena or abdominal pain reported. Additional labs with significantly elevated BNP concerning for CHF exacerbation and mild troponin release. Prognosis guarded. Condition serious. Problems addressed as follows: Acute on chronic respiratory failure with hypoxia and hypercapnia (VBG pCO2=83) Centrilobular emphysema Thoracic and cervical kyphosis Bilateral pleural effusions Aspiration pneumonia Concerns for pulmonary hypertension Pulse oximetry monitoring Oxygen therapy to maintain appropriate oxygen saturations Currently requiring 1-2 L which is usual home O2 requirement Echocardiogram with EF 60%, cardiac valve disease and RVSP [address] chest with centrilobular emphysema and large pleural effusions Blood cultures no growth to date Respiratory PCR negative MRSA screen pending Pulmonology consultation reviewed Alfredo/Suzanna inhalation therapy as needed IV Rocephin Doxycycline p.o. Trending labs and inflammatory markers Acute on chronic HFpEF (stage C/NYHA IV) Myocardial injury type II Telemetry monitoring Cardiology consultation reviewed Echocardiogram with EF 60%, cardiac valve disease and RVSP 35 mmHg Non-ACS troponin static trend ECG pending Accurate I's and O's Sodium and fluid restriction Routine weights Holding antiplatelet therapy with presenting hemoglobin 6.7 High-dose statin therapy IV loop diuretic therapy transitioning to p.o. Routine electrolytes, magnesium and creatinine Intermittent proBNP assessments Beta-bob therapy adjusted for hypotension ARB therapy held with hypotension SGLT2 inhibitor therapy Aldosterone antagonist therapy NTG as needed chest pain Acute metabolic encephalopathy Hypercapnia noted Routine nursing interaction CT head with atrophy and periventricular chronic ischemic changes Avoiding sedatives Acute on chronic anemia Macrocytosis Trending CBC 2 units PRBCs (10/05/2023) B12 level normal Folic acid level normal PPI therapy twice daily Holding anticoagulation and antiplatelet therapy Paroxysmal atrial fibrillation Telemetry monitoring Beta-bob therapy Digoxin therapy Holding anticoagulation therapy with presenting hemoglobin 6.7 Large left renal cysts Chronicity noted (conversation with urology [facility]) CT abdomen and pelvis with large left renal cyst Trending urine output Routine renal profiles Avoiding NSAIDs Cachexia BMI 16 Complicates all aspects of her care. Will add nutritional supplement with meals. VTE prophylaxis: SCD's CODE STATUS: DNR/DNI POA: Travon- The patient is hospitalized day 3 with above diagnoses complicated by her adv anced age. We appreciate bi consultant evaluations and recommendations. Case management is assisting with discharge planning. Barriers to discharge currently include bi consultant evaluation and recommendations. After discussions with cardiology and pulmonology bi consultant a poor prognoses is identified. Goals of care conversation with with introduction to hospice care upon discharge. Expected day of discharge over the next day or 2.
[2023-10-08] MEDS: CEFTRIAXONE SODIUM 1 GM in 0.9 % SODIUM CHLORIDE 50 ML IV (16:50)
--- NOTE | 2023-10-08 17:52 | PC.NURSE ---
pt has been restless this shift. pt has had low blood pressure throughout shift. hospitalist was made aware and d/c some of her chf medications. pt was in and out cathed earlier and had 325 out. pt was placed back on bipap by respiratory per . pt was getting frustrated and trying to pull bipap off during initial placement. pt was medicated with xanax per may. pt is now resting in bed with the bipap on. pt had period of low o2 sats after placement of bipap and respiratory was called. respiratory adjusted bipap settings and pt is now satting 100% on bipap. no new orders at this time. call light within reach.
[2023-10-08] MEDS: IPRATROPIUM/ALBUTEROL 3 ML NEB IH ×2 (18:41→22:10)
[2023-10-08] MEDS: LORazepam 2MG/ML VIAL 0.5 MG IV (22:45)
[2023-10-09] VITALS (15 sets, daily range): BP systolic 77–153; BP diastolic 48–90; PULSE 70–100; RESP 14–50; TEMP 36.2–36.7; O2SAT 92–100; BMI 17.4
[2023-10-09] MEDS: IPRATROPIUM/ALBUTEROL 3 ML NEB IH ×3 (02:03→10:14)
[2023-10-09] MEDS: LORazepam 2MG/ML VIAL 0.5 MG IV ×3 (06:04→15:18)
[2023-10-09] MEDS: SODIUM CHLORIDE 3% 15ML NEB 3 ML IH (06:26)
[2023-10-09 06:54] LABS: Basophils # 0.1 K/mm3 (0-0.2); Basophils % 0.4 % (0.1-2.0); Eosinophils # 0.7 K/mm3 (0.0-0.4); Eosinophils % 4.4 % (0.1-12.0); Hematocrit 34.9 % (37.0-47.0); Hemoglobin 11.1 g/dL (12.2-16.2); Lymphocytes # 0.7 K/mm3 (0.7-4.5); Lymphocytes % 4.8 % (10-50); Mean Corpuscular HGB Conc 31.8 g/dL (31.8-35.4); Mean Corpuscular Hemoglobin 37.5 pg (27.0-31.2); Mean Corpuscular Volume 117.7 fl (81-99); Monocytes # 0.3 K/mm3 (0.1-1.0); Monocytes % 2.1 % (1.7-9.3); Neutrophils # 13.2 K/mm3 (1.8-7.8); Neutrophils % 88.3 % (37.0-80.0); Platelet Count 166 K/mm3 (142-424); Red Blood Count 2.96 M/mm3 (4.20-5.40); Red Cell Distribution Width 21.9 % (11.5-17.5); White Blood Count 14.9 K/mm3 (4.8-10.8)
[2023-10-09 06:58] LABS: MANUAL DIFFERENTIAL MANUAL DIFFERENTIAL (MANUAL DIFF)
[2023-10-09 07:10] LABS: Chloride 92 mmol/L (98-107); Potassium 4.6 mmoL/L (3.5-5.1); Sodium 135 mmol/L (136-145)
[2023-10-09 07:13] LABS: Anion Gap 7.6 mEq/L (5-15); Blood Urea Nitrogen 34 mg/dl (7-17); Carbon Dioxide 40 mmol/L (22.0-30.0); Creatinine Clearance Estimated 27 mL/min (50-200); Estimated Glomerular Filt Rate 68 ml/min (>60); GFR (African American) 82 ML/MIN (>60)
[2023-10-09 07:14] LABS: Calcium 8.4 mg/dl (8.4-10.2); Glucose 88 mg/dl (74-100)
[2023-10-09 08:08] LABS: Magnesium 2.1 mg/dl (1.6-2.3)
[2023-10-09 09:01] LABS: Lymphocytes % 7 % (10-50); Macrocytosis 3+; Monocytes % 2 % (2-9); Neutrophils % 91 % (42-76); Platelet Estimate Normal; Total Cells Counted 100
[2023-10-09 09:39] LABS: Procalcitonin 0.087 ng/mL (0.0-2.0)
--- NOTE | 2023-10-09 09:47 | P.PN_ITS ---
Subjective *Date: 10/09/23 *Time: 12:33 Interval history: No acute respiratory vents overnight. Patient not responding to verbal stimuli. Pulmonology Exam Inpatient Vital signs and Labs for Last 24 Hours: Temp Pulse Resp BP Pulse Ox O2 Del Method O2 Flow Rate 97.2 F L 88 22 77/48 L 99 BiPAP 1 10/09/23 04:00 10/09/23 08:00 10/09/23 08:00 10/09/23 08:00 10/09/23 08:00 10/09/23 08:00 10/08/23 15:15 FiO2 30 10/09/23 06:17 Laboratory Results - last 24 hr 10/08/23 05:28: Total Counted 100, Neutrophils % (Manual) 89 H, Lymphocytes % (Manual) 5 L, Monocytes % (Manual) 2, Eosinophils % (Manual) 4 H, Platelet Estimate Normal, Hypochromasia 1+, Macrocytosis 3+ 10/08/23 14:21: Specimen Source Right brachial, O2 % 1l, ABG pH 7.33 L, ABG pCO2 94.6 H, ABG pO2 100.5 H, ABG HCO3 49 H, ABG Total CO2 51.9 H, ABG O2 Saturation 97, ABG Base Excess 19.3 H, Jatin Test Acceptable 10/09/23 06:44: WBC 14.9 H, RBC 2.96 L, Hgb 11.1 L, Hct 34.9 L, MCV 117.7 H, MCH 37.5 H, MCHC 31.8, RDW 21.9 H, Plt Count 166, MPV 9.0, Neut % (Auto) 88.3 H, Lymph % (Auto) 4.8 L, [place] % (Auto) 2.1, Eos % (Auto) 4.4, Baso % (Auto) 0.4, Neut # (Auto) 13.2 H, Lymph # (Auto) 0.7, [place] # (Auto) 0.3, Eos # (Auto) 0.7 H, Baso # (Auto) 0.1, Total Counted 100, Neutrophils % (Manual) 91 H, Lymphocytes % (Manual) 7 L, Monocytes % (Manual) 2, Platelet Estimate Normal, Macrocytosis 3+, Sodium 135 L, Potassium 4.6, Chloride 92 L, Carbon Dioxide 40 H, Anion Gap 7.6, BUN 34 H, Creatinine 0.80, Estimated Creat Clear 27, Estimated GFR 68, Est GFR ( Amer) 82 D, Glucose 88, Calcium 8.4, Procalcitonin 0.087 10/09/23 06:45: Magnesium 2.1 D Temp Pulse Resp BP Pulse Ox O2 Del Method O2 Flow Rate 98.4 F 86 20 82/48 L 100 Nasal Cannula 2 10/08/23 08:00 10/08/23 10:02 10/08/23 10:02 10/08/23 10:04 10/08/23 10:02 10/08/23 10:02 10/08/23 10:02 FiO2 30 10/08/23 06:25 Laboratory Results - last 24 hr 10/08/23 05:28: WBC 18.0 H D, RBC 3.36 L, Hgb 11.8 L D, Hct 38.7, MCV 115.2 H, MCH 35.2 H, MCHC 30.5 L, RDW 22.6 H, Plt Count 190, MPV 9.4, Neut % (Auto) 90.4 H, Lymph % (Auto) 2.7 L, [place] % (Auto) 1.7, Eos % (Auto) 4.8, Baso % (Auto) 0.4, Neut # (Auto) 16.2 H, Lymph # (Auto) 0.5 L, [place] # (Auto) 0.3, Eos # (Auto) 0.9 H, Baso # (Auto) 0.1, Total Counted 100, Neutrophils % (Manual) 89 H, Lymphocytes % (Manual) 5 L, Monocytes % (Manual) 2, Eosinophils % (Manual) 4 H, Platelet Estimate Normal, Hypochromasia 1+, Macrocytosis 3+, Sodium 136, Potassium 4.8 D, Chloride 89 L, Carbon Dioxide 46 H*, Anion Gap 5.8, BUN 28 H D , Creatinine 1.00 D, Estimated Creat Clear 24, Estimated GFR 52 L, Est GFR ( Amer) 63 D, Glucose 100, Calcium 8.3 L, Total Bilirubin 0.9, AST 53 H D, ALT 26, Alkaline Phosphatase 134 H, NT-Pro-B Natriuret Pep 9740 H, Total Protein 6.1 L, Albumin 2.9 L, Globulin 3.2, Albumin/Globulin Ratio 0.9 L 07/08/24 09:26: VBG pH 7.34, VBG pCO2 86.3 H, VBG pO2 61.1 H, VBG HCO3 45.7 H, VBG Total CO2 48.4 H, VBG O2 Saturation 91.5 H, VBG Base Excess 20.0 H, VBG Lactic Acid 1.3 I & O for Labs for Last 24 Hours: Intake & Output 10/06/23 10/07/23 10/08/23 10/09/23 23:59 23:59 23:59 23:59 Intake Total 1330 / 1330 310 / 360 160 / 160 Output Total 2950 / 2950 750 / 750 475 / 475 Balance -1620 / -1620 -440 / -390 -315 / -315 Weight 89 lb 2.832 oz 89 lb 1.068 oz 89 lb 1.068 oz 98 lb 5 oz Intake & Output 10/05/23 10/06/23 10/07/23 10/08/23 23:59 23:59 23:59 23:59 Intake Total 2200 / 2200 1330 / 1330 310 / 360 110 / 110 Output Total 1150 / 1150 2950 / 2950 750 / 750 150 / 150 Balance 1050 / 1050 -1620 / -1620 -440 / -390 -40 / -40 Weight 89 lb 3 oz 89 lb 2.832 oz 89 lb 1.068 oz 89 lb 1.068 oz Microbiology Reports for the Last 24 Hours: Microbiology 10/05/23 13:00 Blood Blood Culture - Preliminary NO GROWTH AFTER 48 HOURS 10/05/23 13:12 Blood Blood Culture - Preliminary NO GROWTH AFTER 48 HOURS Constitutional: Present severe distress Head: Present normocephalic and atraumatic ENT: Present normal exam and normal oropharynx Neck: Present normal inspection Respiratory: Present respiratory distress, rhonchi, crackles and diminished air movement; Absent wheezes or able to speak in complete sentences Cardiac: Present Tachycardia and radial pulses present; Absent S1/S2 GI: Present soft and distention; Absent tenderness or guarding Rectal (female): Present deferred (female): Present deferred Skin: Present intact; Absent cyanosis or jaundice Neuro: Absent alert, awake or oriented x 3 Extremities: Present normal inspection; Absent clubbing or cyanosis Psychiatric: Present normal affect and cooperative Assessment and Plan *Assessment and plan (1) Centrilobular emphysema: Status: Acute Category: Medical Code(s): J43.2 - Centrilobular emphysema (2) Acute on chronic respiratory failure with hypoxia and hypercapnia: Status: Acute Category: Medical Code(s): J96.21 - Acute and chronic respiratory failure with hypoxia; J96.22 - Acute and chronic respiratory failure with hypercapnia (3) Multifocal pneumonia: Status: Acute Category: Medical Code(s): J18.9 - Pneumonia, unspecified organism (4) Bilateral pleural effusion: Status: Acute Category: Medical Code(s): J90 - Pleural effusion, not elsewhere classified Plan Ms. Wan is a 88-year-old female prior smoker has not smoked in the last 15 years carries a diagnosis of questionable COPD on oxygen supplementation at baseline 2 L for the last 6 months along with inhalers on as-needed basis recently discharged from rehab went to rehab presented to the ER complaining of worsening respiratory distress VBG upon admission continue to show chronic hypercarbic respiratory failure with a pH of 7.44 and pCO2 of 83. Continue to show hypoxia. Labs on admission, neutrophilic predominant leukocytosis worsening. Severe anemia at Hb of 6.7 on admission status post transfusion. Hemoglobin normalized. Worsening BUN and creatinine. Afebrile. Hemodynamically unstable. Blood cultures and nasal MRSA PCR pending. CTA upon admission evidence of pulmonary embolism. Bilateral pleural effusions moderate right. Right greater than left effusions. Adjacent atelectasis/airspace disease noted. Supraclavicular and retroperitoneal lymp hadenopathy noted. No other airspace disease consolidative changes noted. On initial examination patient appeared lethargic and altered not responding appropriately to verbal stimuli. Interval update: ABG showed hypercarbic respiratory failure patient was placed on BiPAP. Improving pH and hypercarbia. Continue to show chronic hypercarbic respiratory failure with a pCO2 of 70 and pH of 7.4. Stable oxygen requirements, this morning on FiO2 30% saturating 96%. PaO2 on ABG at 66.4. It appears at this point that her hypercarbia is NOT significantly impacting her worsening mentation given its relatively well compensated and likely chronic. Will continue BiPAP therapy will change settings to BiPAP at 09/15. Continue to show worsening mentation. CT head upon admission no acute changes. Recommend repeating CT given continued worsening mentation and evaluate for for other possible etiologies including Hypothyroidism, myxodema, vitamin deficiencies as patient noted to have severe macrocytic anemia upon presentation. Plan: -Continue ceftriaxone and doxycycline pending sputum culture results and MRSA PCR. Blood cultures no growth 48 hrs. -DuoNebs every 6 hours on a scheduled basis -Will hold off on performing thoracentesis at this point of time pending clinical improvement. Patient at baseline on 2 L nasal cannula supplementation for the last 6 months. This morning on 1 L saturating 100%. Will follow with arterial blood gas. -Follow with urine output and renal function -Continue goals of care discussion at this point of time given multiple comorbidities and from the noted to have continued decline in her clinical status within the last 6 months with multiple hospital admissions. # Primary team following on the noted left renal cyst. # Thank you for involving pulmonary in this patient care. Will continue to follow.
[2023-10-09 10:08] LABS: ABG Base Excess 18.7 mmol/L (-2.4-2.3); ABG HCO3 43.5 mmhg (22.0-26.0); ABG Oxygen Saturation 94 % (90-100); ABG PO2 66.4 mmhg (80-100); ABG TCO2 45.7 mmhg (23-27)
[2023-10-09 10:13] LABS: Oxygen 30% %; Tidal Volume 14/6; Vent Rate 18
[2023-10-09 10:14] LABS: ABG PCO2 71.9 mmhg (35.0-45.0); Source R BRACHIAL
--- NOTE | 2023-10-09 13:02 | P.PN_ITS ---
Subjective Subjective Date: 10/09/23 Time: 10:00 Interval history: Status largely unchanged. On Bipap due to hypercarbia. BP 90s systolic. Family awaiting Hospice consult. Exam Data for Last 24 hours Vital signs and Labs for Last 24 Hours: Temp Pulse Resp BP Pulse Ox O2 Del Method O2 Flow Rate 97.6 F 85 24 118/73 95 BiPAP 1 10/09/23 08:00 10/09/23 12:00 10/09/23 12:00 10/09/23 12:00 10/09/23 12:00 10/09/23 12:59 10/08/23 15:15 FiO2 25 10/09/23 11:23 Laboratory Results - last 24 hr 10/08/23 14:21: Specimen Source Right brachial, O2 % 1l, ABG pH 7.33 L, ABG pCO2 94.6 H, ABG pO2 100.5 H, ABG HCO3 49 H, ABG Total CO2 51.9 H, ABG O2 Saturation 97, ABG Base Excess 19.3 H, Jatin Test Acceptable 10/09/23 06:44: WBC 14.9 H, RBC 2.96 L, Hgb 11.1 L, Hct 34.9 L, MCV 117.7 H, MCH 37.5 H, MCHC 31.8, RDW 21.9 H, Plt Count 166, MPV 9.0, Neut % (Auto) 88.3 H, Lymph % (Auto) 4.8 L, [place] % (Auto) 2.1, Eos % (Auto) 4.4, Baso % (Auto) 0.4, Neut # (Auto) 13.2 H, Lymph # (Auto) 0.7, [place] # (Auto) 0.3, Eos # (Auto) 0.7 H, Baso # (Auto) 0.1, Total Counted 100, Neutrophils % (Manual) 91 H, Lymphocytes % (Manual) 7 L, Monocytes % (Manual) 2, Platelet Estimate Normal, Macrocytosis 3+, Sodium 135 L, Potassium 4.6, Chloride 92 L, Carbon Dioxide 40 H, Anion Gap 7.6, BUN 34 H, Creatinine 0.80, Estimated Creat Clear 27, Estimated GFR 68, Est GFR ( Amer) 82 D, Glucose 88, Calcium 8.4, Procalcitonin 0.087 10/09/23 06:45: Magnesium 2.1 D 10/09/23 09:47: Specimen Source R brachial, O2 % 30%, ABG pH 7.40, ABG pCO2 71.9 H, ABG pO2 66.4 L, ABG HCO3 43.5 H, ABG Total CO2 45.7 H, ABG O2 Saturation 94, ABG Base Excess 18.7 H, Vent Rate 18, Tidal Volume 14/6 I & O for Last 24 hours: Intake & Output 10/06/23 10/07/23 10/08/23 10/09/23 23:59 23:59 23:59 23:59 Intake Total 1330 / 1330 310 / 360 160 / 160 Output Total 2950 / 2950 750 / 750 475 / 475 Balance -1620 / -1620 -440 / -390 -315 / -315 Weight 89 lb 2.832 oz 89 lb 1.068 oz 89 lb 1.068 oz 98 lb 5 oz Constitutional Constitutional: no acute distress, thin, cachectic, chronically ill appearing, cooperative and somnolent *Routine Respiratory Exam Respiratory: Present decreased breath sounds, rhonchi and diminished air movement *Routine Cardiovascular Exam Cardiovascular: Present RRR and murmur *Routine Extremities Exam Extremities: Present normal capillary refill; Absent edema Comments: diminished muscle mass Routine Back/Spine/Pelvis Exam Back/Spine: Present kyphosis Routine Psychiatric Exam Psychiatric: Present cooperative Progress Note: A&P Assessment and plan (1) (HFpEF) heart failure with preserved ejection fraction: Status: Acute (2) Centrilobular emphysema: Status: Acute (3) Acute on chronic respiratory failure with hypoxia and hypercapnia: Status: Acute (4) Multifocal pneumonia: Status: Acute (5) Bilateral pleural effusion: Status: Acute Assessment and Plan Assessment and Plan for All Diagnoses:: Acute on Chronic HFpEF, Stage D, NYHA 3-4 - unclear history of right heart failure per on arrival - ProBNP 11k, bilateral pulmonary effusions which may or may not be cardiogenic - repeat ECHO here shows Severe TR, mod MR, vol overload - diuresed with Lasix 40 BID for 2 days on arrival. Effusions evaluated by Pulm, no amenable to thoracentesis. - pt has BMI of 15 and is cachectic, does not appear volume overloaded at this time - Plan: continue PRN Diuretics. Not a candidate for procedural intervention given her comorbidities. A-fib, presumed permanent - known dx, on dig - rate controlled here - OAC on hold due to high bleed risk with BMI 15 and Hgb 6 on arrival - check Dig level Troponemia - mild flat elevation of 0.05-0.06 x3 in setting of severe anemia - no anginal equivalence - no ischemic changes on EKG - no wall motion abnormalities on ECHO and normal EF Bilateral Pleural Effusions - CT shows: moderate pleural effusions bilaterally with adjacent dependent atelectasis - Diuresed - Also has PNA - Plans per Pulm Mild baseline dementia with acute AMS - secondary to underlying infection? - Plan per Hospitalist Severe Macrocytic Anemia - Hgb 6 - trending better after 2 unit transfusion - likely diet related, w/u per primary service - OAC on hold Cachexia, BMI 15 - Severe wasting and failure to thrive - needs nutritional supplementation and goals of care CV summary 10/08: Cont PRN diuretics. No further inpatient CV plans at this time. Goals of care/hospice consult is pending. I have discussed cardiac status with pt's in detail. Please advise if we can be of further assistance prior to discharge.
[2023-10-09 13:48] LABS: Thyroid Stimulating Hormone 0.86 uIU/mL (0.465-4.68)
[2023-10-09 14:14] LABS: Vitamin B12 > 1000 pg/mL (239-931)
[2023-10-09] MEDS: MORPHINE 2MG/ML SYRINGE 2 MG IV (16:30)
--- NOTE | 2023-10-09 17:07 | P.PN_ITS ---
Subjective *Date: 10/09/23 *Time: 17:15 Interval history: Respiratory distress with impending respiratory failure Medical Exam Vital signs and Labs for Last 24 Hours: Vital Signs Temp Pulse Pulse Resp BP Pulse Ox O2 Del Method 10/09/23 16:24 100 Nasal Cannula 10/09/23 14:50 BiPAP 10/09/23 14:00 84 26 H 153/73 H 92 L BiPAP 10/09/23 12:59 BiPAP 10/09/23 12:00 98.1 F 10/09/23 12:00 90 10/09/23 12:00 85 24 118/73 95 BiPAP 10/09/23 11:23 10/09/23 11:00 BiPAP 10/09/23 10:15 94 H 10/09/23 10:15 80 10/09/23 10:01 10/09/23 10:00 95 H 22 140/75 92 L BiPAP 10/09/23 09:00 BiPAP 10/09/23 08:00 97.6 F 10/09/23 08:00 80 10/09/23 08:00 88 22 77/48 L 99 BiPAP 10/09/23 08:00 97 BiPAP 10/09/23 06:26 92 H 31 H 10/09/23 06:17 88 10/09/23 06:17 83 10/09/23 06:17 10/09/23 06:00 93 H 14 122/61 94 L BiPAP 10/09/23 04:00 99 BiPAP 10/09/23 04:00 97.2 F L 90 21 149/90 H 95 Room Air 10/09/23 04:00 100 H 10/09/23 02:03 77 10/09/23 02:03 81 10/09/23 02:03 10/09/23 02:00 84 19 128/50 L 96 BiPAP 10/09/23 00:00 70 10/09/23 00:00 89 16 112/54 L 97 BiPAP 10/08/23 22:10 84 10/08/23 22:10 89 10/08/23 22:10 10/08/23 22:00 76 97/60 L 99 BiPAP 10/08/23 20:00 70 10/08/23 20:00 97 BiPAP 10/08/23 20:00 73 20 132/42 L 96 BiPAP 10/08/23 18:58 BiPAP 10/08/23 18:42 77 10/08/23 18:42 82 10/08/23 18:42 97 BiPAP 10/08/23 18:42 10/08/23 18:00 56 L 22 101/56 L 100 BiPAP O2 Flow Rate FiO2 10/09/23 16:24 2 10/09/23 14:50 10/09/23 14:00 10/09/23 12:59 10/09/23 12:00 10/09/23 12:00 10/09/23 12:00 10/09/23 11:23 25 10/09/23 11:00 10/09/23 10:15 10/09/23 10:15 10/09/23 10:01 30 10/09/23 10:00 10/09/23 09:00 10/09/23 08:00 10/09/23 08:00 10/09/23 08:00 10/09/23 08:00 10/09/23 06:26 10/09/23 06:17 10/09/23 06:17 10/09/23 06:17 30 10/09/23 06:00 35 10/09/23 04:00 30 10/09/23 04:00 10/09/23 04:00 10/09/23 02:03 10/09/23 02:03 10/09/23 02:03 30 10/09/23 02:00 30 10/09/23 00:00 10/09/23 00:00 40 10/08/23 22:10 10/08/23 22:10 10/08/23 22:10 30 10/08/23 22:00 40 10/08/23 20:00 10/08/23 20:00 40 10/08/23 20:00 40 10/08/23 18:58 10/08/23 18:42 10/08/23 18:42 10/08/23 18:42 30 10/08/23 18:42 30 10/08/23 18:00 Intake and Output 10/09/23 10/09/23 10/09/23 07:59 15:59 23:59 Other: Number of Unmeasured Voids 1 Weight 44.594 kg Patient Weight 10/09/23 23:59 Weight 44.594 kg Laboratory Results - last 24 hr 10/09/23 06:44: WBC 14.9 H, RBC 2.96 L, Hgb 11.1 L, Hct 34.9 L, MCV 117.7 H, MCH 37.5 H, MCHC 31.8, RDW 21.9 H, Plt Count 166, MPV 9.0, Neut % (Auto) 88.3 H, Lymph % (Auto) 4.8 L, [place] % (Auto) 2.1, Eos % (Auto) 4.4, Baso % (Auto) 0.4, Neut # (Auto) 13.2 H, Lymph # (Auto) 0.7, [place] # (Auto) 0.3, Eos # (Auto) 0.7 H, Baso # (Auto) 0.1, Total Counted 100, Neutrophils % (Manual) 91 H, Lymphocytes % (Manual) 7 L, Monocytes % (Manual) 2, Platelet Estimate Normal, Macrocytosis 3+, Sodium 135 L, Potassium 4.6, Chloride 92 L, Carbon Dioxide 40 H, Anion Gap 7.6, BUN 34 H, Creatinine 0.80, Estimated Creat Clear 27, Estimated GFR 68, Est GFR ( Amer) 82 D, Glucose 88, Calcium 8.4, Procalcitonin 0.087 10/09/23 06:45: Magnesium 2.1 D 10/09/23 09:47: Specimen Source R brachial, O2 % 30%, ABG pH 7.40, ABG pCO2 71.9 H, ABG pO2 66.4 L, ABG HCO3 43.5 H, ABG Total CO2 45.7 H, ABG O2 Saturation 94, ABG Base Excess 18.7 H, Vent Rate 18, Tidal Volume 14/6 10/09/23 12:48: Vitamin B12 > 1000 H, TSH 0.86 10/09/23 14:10: Digoxin 1.40 I & O for Labs for Last 24 Hours: Intake & Output 10/06/23 10/07/23 10/08/23 10/09/23 23:59 23:59 23:59 23:59 Intake Total 1330 / 1330 310 / 360 160 / 160 Output Total 2950 / 2950 750 / 750 475 / 475 Balance -1620 / -1620 -440 / -390 -315 / -315 Weight 40.45 kg 40.4 kg 40.4 kg 44.594 kg Microbiology Reports for the Last 24 Hours: Microbiology 10/05/23 13:12 Blood Blood Culture - Preliminary NO GROWTH AFTER 4 DAYS 10/05/23 13:00 Blood Blood Culture - Preliminary NO GROWTH AFTER 4 DAYS Head: Present atraumatic Comment:: 1 BiPAP 30% FiO2 at time of evaluation, very lethargic. Only minimally awakens to verbal/tactile stimulation. Neck: Present normal inspection Cardiac: Present Tachycardia GI: Present soft and normal bowel sounds Extremities: Present normal inspection Skin: Present intact Assessment and Plan *Assessment and plan (1) (HFpEF) heart failure with preserved ejection fraction: Status: Acute Category: Medical Code(s): I50.30 - Unspecified diastolic (congestive) heart failure (2) Centrilobular emphysema: Status: Acute Category: Medical Code(s): J43.2 - Centrilobular emphysema (3) Cachexia: Status: Acute Category: Medical Code(s): R64 - Cachexia (4) Anemia, chronic disease: Status: Acute Category: Medical Code(s): D63.8 - Anemia in other chronic diseases classified elsewhere (5) Multifocal pneumonia: Status: Acute Category: Medical Code(s): J18.9 - Pneumonia, unspecified organism (6) Acute metabolic encephalopathy: Status: Acute Category: Medical Code(s): G93.41 - Metabolic encephalopathy Plan Plan 88-year-old female with progressive decline over the past few months. Presented to the ED with weakness, confusion and dyspnea with a VBG pCO2=83. Found to be anemic in the ER with hemoglobin 6.7 and chronic anticoagulation with Xarelto reported. No hematochezia, melena or abdominal pain reported. Additional labs with significantly elevated BNP concerning for CHF exacerbation and mild tropo todd release. Prognosis guarded. Condition serious. Problems addressed as follows: Acute on chronic respiratory failure with hypoxia and hypercapnia (VBG pCO2=83) Centrilobular emphysema Thoracic and cervical kyphosis Bilateral pleural effusions Aspiration pneumonia Concerns for pulmonary hypertension ?10/08 Long goals of care discussion occurred with patient's and Dr. Aguilar. Has been understanding 's serious decline, and very low chance of complete recovery. amendable to hospice consultation. Hospice consultation completed, and patient/family agreed to hospice arrangements. Patient made inpatient hospice today. Start as needed IV morphine, Ativan. IM Geodon. Also start as needed Robinul/Zofran. Transfer patient to unmonitored MedSurg bed. Change patient from BiPAP to 2 L nasal cannula. Patient has a life expectancy of under 48 hours unless rapid clinical improvement noted. DC all antibiotics today.Stop trending labs and inflammatory markers since patient on comfort care measures. ?10/07 Echocardiogram with EF 60%, cardiac valve disease and RVSP 35 mmHg ?CT chest with centrilobular emphysema and large pleural effusions ?Blood cultures no growth to date ?Respiratory PCR negative ?MRSA screen pending ?Pulmonology consultation reviewed ?Alfredo/Suzanna inhalation therapy as needed ?s/p IV Rocephin, Doxycycline p.o. Acute on chronic HFpEF (stage C/NYHA IV) Myocardial injury type II ?As above and respiratory failure with section since patient now hospice Acute metabolic encephalopathy Hypercapnia noted Routine nursing interaction CT head with atrophy and periventricular chronic ischemic changes Avoiding sedatives Acute on chronic anemia Macrocytosis ?10/08 no longer actively managing send patient on hospice Paroxysmal atrial fibrillation ?10/08 no longer actively managing send patient on hospice Large left renal cysts ?10/08 no longer actively managing send patient on hospice Chronicity noted (conversation with urology [facility]) CT abdomen and pelvis with large left renal cyst Cachexia with severe caloric protein malnutrition BMI 16 Complicates all aspects of her care. Will add nutritional supplement with meals. VTE prophylaxis: SCD's CODE STATUS: DNR/DNI, comfort care measures as of 10/09/2023 POA: Travon- Disposition: ? 10/08 patient now full comfort care measures and inpatient hospice. As mentioned above DC all heroic measures including IV antibiotics/chronic med treatment. Patient's life expectancy less than 48 hours unless rapid clinical improvement noted. Transferred to nonmonitored telemetry bed today.
--- NOTE | 2023-10-09 18:46 | PC.NURSE ---
Pt has rested well since this RN assumed care of pt. No needs stated by family. Pt is on 2L for comfort. Bed alarm in place for pt safety due to trying to get up without help this afternoon due to agitation. Pt is currently resting comfortably in bed. call bhakta within reach.
[2023-10-10 04:00] VITALS: BMI 32.0
--- NOTE | 2023-10-10 04:27 | PC.NURSE ---
Pt with no real change during the night. Pt has remained comfortable and has not required any meds for comfort through the night. No family present this shift
[2023-10-10] MEDS: LORazepam 2MG/ML VIAL 2 MG IV ×2 (05:16→12:55)
--- NOTE | 2023-10-10 06:40 | P.PN_ITS ---
Subjective *Date: 10/10/23 *Time: 10:56 Interval history: Patient on comfort care orders. No new events noted overnight Medical Exam Vital signs and Labs for Last 24 Hours: Vital Signs Temp Pulse Pulse Resp BP Pulse Ox O2 Del Method 10/10/23 05:00 Nasal Cannula 10/10/23 03:00 Nasal Cannula 10/10/23 01:00 Nasal Cannula 10/09/23 23:00 Nasal Cannula 10/09/23 21:00 Nasal Cannula 10/09/23 19:44 Nasal Cannula 10/09/23 18:45 Nasal Cannula 10/09/23 17:00 Nasal Cannula 10/09/23 16:24 100 Nasal Cannula 10/09/23 14:50 BiPAP 10/09/23 14:00 84 26 H 153/73 H 92 L BiPAP 10/09/23 12:59 BiPAP 10/09/23 12:00 98.1 F 10/09/23 12:00 90 10/09/23 12:00 85 24 118/73 95 BiPAP 10/09/23 11:23 10/09/23 11:00 BiPAP 10/09/23 10:15 94 H 10/09/23 10:15 80 10/09/23 10:01 10/09/23 10:00 95 H 22 140/75 92 L BiPAP 10/09/23 09:00 BiPAP 10/09/23 08:00 97.6 F 10/09/23 08:00 80 10/09/23 08:00 88 22 77/48 L 99 BiPAP 10/09/23 08:00 97 BiPAP O2 Flow Rate FiO2 10/10/23 05:00 2 10/10/23 03:00 2 10/10/23 01:00 2 10/09/23 23:00 2 10/09/23 21:00 2 10/09/23 19:44 2 10/09/23 18:45 2 10/09/23 17:00 2 10/09/23 16:24 2 10/09/23 14:50 10/09/23 14:00 10/09/23 12:59 10/09/23 12:00 10/09/23 12:00 10/09/23 12:00 10/09/23 11:23 25 10/09/23 11:00 10/09/23 10:15 10/09/23 10:15 10/09/23 10:01 30 10/09/23 10:00 10/09/23 09:00 10/09/23 08:00 10/09/23 08:00 10/09/23 08:00 10/09/23 08:00 Intake and Output 10/09/23 10/09/23 10/10/23 15:59 23:59 07:59 Other: Weight 81.919 kg Patient Weight 10/10/23 23:59 Weight 81.919 kg Laboratory Results - last 24 hr 10/09/23 06:44: WBC 14.9 H, RBC 2.96 L, Hgb 11.1 L, Hct 34.9 L, MCV 117.7 H, MCH 37.5 H, MCHC 31.8, RDW 21.9 H, Plt Count 166, MPV 9.0, Neut % (Auto) 88.3 H, Lymph % (Auto) 4.8 L, [place] % (Auto) 2.1, Eos % (Auto) 4.4, Baso % (Auto) 0.4, Neut # (Auto) 13.2 H, Lymph # (Auto) 0.7, [place] # (Auto) 0.3, Eos # (Auto) 0.7 H, Baso # (Auto) 0.1, Total Counted 100, Neutrophils % (Manual) 91 H, Lymphocytes % (Manual) 7 L, Monocytes % (Manual) 2, Platelet Estimate Normal, Macrocytosis 3+, Sodium 135 L, Potassium 4.6, Chloride 92 L, Carbon Dioxide 40 H, Anion Gap 7.6, BUN 34 H, Creatinine 0.80, Estimated Creat Clear 27, Estimated GFR 68, Est GFR ( Amer) 82 D, Glucose 88, Calcium 8.4, Procalcitonin 0.087 10/09/23 06:45: Magnesium 2.1 D 10/09/23 09:47: Specimen Source R brachial, O2 % 30%, ABG pH 7.40, ABG pCO2 71.9 H, ABG pO2 66.4 L, ABG HCO3 43.5 H, ABG Total CO2 45.7 H, ABG O2 Saturation 94, ABG Base Excess 18.7 H, Vent Rate 18, Tidal Volume 14/6 10/09/23 12:48: Vitamin B12 > 1000 H, TSH 0.86 07/09/24 14:10: Digoxin 1.40 I & O for Labs for Last 24 Hours: Intake & Output 10/07/23 10/08/23 10/09/23 10/10/23 23:59 23:59 23:59 23:59 Intake Total 310 / 360 160 / 160 Output Total 750 / 750 475 / 475 Balance -440 / -390 -315 / -315 Weight 40.4 kg 40.4 kg 44.594 kg 81.919 kg Microbiology Reports for the Last 24 Hours: Microbiology 10/05/23 13:12 Blood Blood Culture - Preliminary NO GROWTH AFTER 4 DAYS 10/05/23 13:00 Blood Blood Culture - Preliminary NO GROWTH AFTER 4 DAYS Head: Present atraumatic Comment:: 1 BiPAP 30% FiO2 at time of evaluation, very lethargic. Only minimally awakens to verbal/tactile stimulation. Neck: Present normal inspection Cardiac: Present Tachycardia GI: Present soft and normal bowel sounds Extremities: Present normal inspection Skin: Present intact Assessment and Plan *Assessment and plan (1) (HFpEF) heart failure with preserved ejection fraction: Status: Acute Category: Medical Code(s): I50.30 - Unspecified diastolic (congestive) heart failure (2) Centrilobular emphysema: Status: Acute Category: Medical Code(s): J43.2 - Centrilobular emphysema (3) Cachexia: Status: Acute Category: Medical Code(s): R64 - Cachexia (4) Anemia, chronic disease: Status: Acute Category: Medical Code(s): D63.8 - Anemia in other chronic diseases classified elsewhere (5) Multifocal pneumonia: Status: Acute Category: Medical Code(s): J18.9 - Pneumonia, unspecified organism (6) Acute metabolic encephalopathy: Status: Acute Category: Medical Code(s): G93.41 - Metabolic encephalopathy Plan Plan 88-year-old female with progressive decline over the past few months. Presented to the ED with weakness, confusion and dyspnea with a VBG pCO2=83. Found to be anemic in the ER with hemoglobin 6.7 and chronic anticoagulation with Xarelto reported. No hematochezia, melena or abdominal pain reported. Additional labs with significantly elevated BNP concerning for CHF exacerbation and mild troponin release. Prognosis guarded. Condition serious. Problems addressed as follows: Acute on chronic respiratory failure with hypoxia and hypercapnia (VBG pCO2=83) Centrilobular emphysema Thoracic and cervical kyphosis Bilateral pleural effusions Aspiration pneumonia Concerns for pulmonary hypertension ?10/08 Long goals of care discussion occurred with patient's and Dr. Aguilar. Has been understanding 's serious decline, and very low chance of complete recovery. amendable to hospice consultation. Hospice consultation completed, and patient/family agreed to hospice arrangements. Patient made inpatient hospice today. Start as needed IV morphine, Ativan. IM Geodon. Also start as needed Robinul/Zofran. Transfer patient to unmonitored MedSurg bed. Change patient from BiPAP to 2 L nasal cannula. Patient has a life expectancy of under 48 hours unless rapid clinical improvement noted. DC all antibiotics today.Stop trending labs and inflammatory markers since patient on comfort care measures. ?10/07 Echocardiogram with EF 60%, cardiac valve disease and RVSP 35 mmHg ?CT chest with centrilobular emphysema and large pleural effusions ?Blood cultures no growth to date ?Respiratory PCR negative ?MRSA screen pending ?Pulmonology consultation reviewed ?Alfredo/Suzanna inhalation therapy as needed ?s/p IV Rocephin, Doxycycline p.o. Acute on chronic HFpEF (stage C/NYHA IV) Myocardial injury type II ?As above and respiratory failure with section since patient now hospice Acute metabolic encephalopathy Hypercapnia noted Routine nursing interaction CT head with atrophy and periventricular chronic ischemic changes Avoiding sedatives Acute on chronic anemia Macrocytosis ?10/08 no longer actively managing send patient on hospice Paroxysmal atrial fibrillation ?10/08 no longer actively managing send patient on hospice Large left renal cysts ?10/08 no longer actively managing send patient on hospice Chronicity noted (conversation with urology [facility]) CT abdomen and pelvis with large left renal cyst Cachexia with severe caloric protein malnutrition BMI 16 Complicates all aspects of her care. Will add nutritional supplement with meals. VTE prophylaxis: SCD's CODE STATUS: DNR/DNI, comfort care measures as of 10/09/2023 POA: Travon- Disposition: ?10/09 still on comfort care measures. Will continue current management. ? 10/08 patient now full comfort care measures and inpatient hospice. As menti oned above DC all heroic measures including IV antibiotics/chronic med treatment. Patient's life expectancy less than 48 hours unless rapid clinical improvement noted. Transferred to nonmonitored telemetry bed today.
[2023-10-10] MEDS: SODIUM CHLORIDE 0.9% 10ML FLUSH SYRINGE 10 ML IV (12:55)
--- NOTE | 2023-10-10 18:51 | PC.NURSE ---
PT HAS REMAINED UNRESPONSIVE AND SLEEPING COMFORTABLY IN BED T/O SHIFT. FAMILY HAS BEEN AT BEDSIDE MAJORITY OF THE SHIFT, BUT LEFT THIS AFTERNOON. BREATHING IS SHALLOW BUT REGULAR. RR 20 AT THIS TIME. PT DOES NOT REACT OR RESPOND. PURE WICK IN PLACE, RECENTLY HAS DRAINED SCANT AMOUNT OF DARK YELLOW URINE. PT BECAME RESTLESS AND SLIGHTLY AGITATED X1 THIS SHIFT. ATIVAN GIVEN, EFFECTIVENESS NOTED. NO OTHER NEED FOR PRN MEDICATION, PT IS RESTING VERY COMFORTABLY IN BED. HAS BEEN LEFT SUPINE (PULLED UP IN BED X1) PER FAMILY REQUEST.
--- NOTE | 2023-10-11 04:13 | PC.NURSE ---
Pt has remained comfortable throughout shift. She has not required any prn meds at this point. No intake and mostly unresponsive. Pt respirations even but shallow , no apnea or mottling noted. Spoke with BRIGIDA Lee at the beginning of shift to update on pt status.
--- NOTE | 2023-10-11 09:22 | P.PN_ITS ---
Subjective *Date: 10/11/23 *Time: 10:00 Interval history: Patient on comfort care measures. Patient resting comfortably on nasal cannula at time of evaluation by Dr. Aguilar today. Medical Exam Vital signs and Labs for Last 24 Hours: Vital Signs O2 Del Method O2 Flow Rate 10/11/23 09:00 Nasal Cannula 2 10/11/23 07:56 Nasal Cannula 2 10/11/23 06:38 Nasal Cannula 2 10/11/23 05:00 Nasal Cannula 2 10/11/23 03:00 Nasal Cannula 2 10/11/23 00:59 Nasal Cannula 2 10/10/23 23:00 Nasal Cannula 2 10/10/23 21:00 Nasal Cannula 2 10/10/23 20:54 2 10/10/23 20:00 Nasal Cannula 2 10/10/23 18:49 Nasal Cannula 2 10/10/23 17:00 Nasal Cannula 2 10/10/23 15:00 Nasal Cannula 2 10/10/23 13:00 Nasal Cannula 2 10/10/23 10:37 Nasal Cannula 2 Intake and Output 10/10/23 10/11/23 10/11/23 23:59 07:59 15:59 Intake Total 0 / 0 0 / 0 Output Total 0 / 0 Balance 0 / 0 0 / 0 0 / 0 Intake: Intake, Oral Amount 0 / 0 0 / 0 Output: Output, Urine Amount 0 / 0 Other: Number of Unmeasured Voids 1 I & O for Labs for Last 24 Hours: Intake & Output 10/08/23 10/09/23 10/10/23 10/11/23 23:59 23:59 23:59 23:59 Intake Total 160 / 160 0 / 0 0 / 0 Output Total 475 / 475 0 / 0 Balance -315 / -315 0 / 0 0 / 0 Weight 40.4 kg 44.594 kg 81.919 kg Microbiology Reports for the Last 24 Hours: Microbiology 10/07/23 17:26 Nose MRSA Culture - Final Negative 10/05/23 13:12 Blood Blood Culture - Final NO GROWTH AFTER 5 DAYS 10/05/23 13:00 Blood Blood Culture - Final NO GROWTH AFTER 5 DAYS Head: Present normocephalic and normal inspection ENT: Present normal exam and mucous membranes dry Respiratory: Present distant breath sounds and diminished air movement Rectal (female): Present deferred (female): Present deferred Extremities: Present normal inspection and full ROM Skin: Present intact and warm Assessment and Plan *Assessment and plan (1) (HFpEF) heart failure with preserved ejection fraction: Status: Acute Category: Medical Code(s): I50.30 - Unspecified diastolic (congestive) heart failure (2) Centrilobular emphysema: Status: Acute Category: Medical Code(s): J43.2 - Centrilobular emphysema (3) Cachexia: Status: Acute Category: Medical Code(s): R64 - Cachexia (4) Anemia, chronic disease: Status: Acute Category: Medical Code(s): D63.8 - Anemia in other chronic diseases classified elsewhere (5) Multifocal pneumonia: Status: Acute Category: Medical Code(s): J18.9 - Pneumonia, unspecified organism (6) Acute metabolic encephalopathy: Status: Acute Category: Medical Code(s): G93.41 - Metabolic encephalopathy Plan 88-year-old female with progressive decline over the past few months. Presented to the ED with weakness, confusion and dyspnea with a VBG pCO2=83. Found to be anemic in the ER with hemoglobin 6.7 and chronic anticoagulation with Xarelto reported. No hematochezia, melena or abdominal pain reported. Additional labs with significantly elevated BNP concerning for CHF exacerbation and mild troponin release. Prognosis guarded. Condition serious. Problems addressed as follows: Acute on chronic respiratory failure with hypoxia and hypercapnia (VBG pCO2=83) Centrilobular emphysema Thoracic and cervical kyphosis Bilateral pleural effusions Aspiration pneumonia Concerns for pulmonary hypertension ?10/08 Long goals of care discussion occurred with patient's and Dr. Aguilar. Has been understanding 's serious decline, and very low chance of complete recovery. amendable to hospice consultation. Hospice consultation completed, and patient/family agreed to hospice arrangements. Patient made inpatient hospice today. Start as needed IV morphine, Ativan. IM Geodon. Also start as needed Robinul/Zofran. Transfer patient to unmonitored MedSur bed. Change patient from BiPAP to 2 L nasal cannula. Patient has a life expectancy of under 48 hours unless rapid clinical improvement noted. DC all antibiotics today.Stop trending labs and inflammatory markers since patient on comfort care measures. ?10/07 Echocardiogram with EF 60%, cardiac valve disease and RVSP 35 mmHg ?CT chest with centrilobular emphysema and large pleural effusions ?Blood cultures no growth to date ?Respiratory PCR negative ?MRSA screen pending ?Pulmonology consultation reviewed ?Alfredo/Suzanna inhalation therapy as needed ?s/p IV Rocephin, Doxycycline p.o. Acute on chronic HFpEF (stage C/NYHA IV) Myocardial injury type II ?As above and respiratory failure with section since patient now hospice Acute metabolic encephalopathy Hypercapnia noted Routine nursing interaction CT head with atrophy and periventricular chronic ischemic changes Avoiding sedatives Acute on chronic anemia Macrocytosis ?10/08 no longer actively managing send patient on hospice Paroxysmal atrial fibrillation ?10/08 no longer actively managing send patient on hospice Large left renal cysts ?10/08 no longer actively managing send patient on hospice Chronicity noted (conversation with urology [facility]) CT abdomen and pelvis with large left renal cyst Cachexia with severe caloric protein malnutrition BMI 16 Complicates all aspects of her care. Will add nutritional supplement with meals. VTE prophylaxis: SCD's CODE STATUS: DNR/DNI, comfort care measures as of 10/09/2023 POA: Travon- Disposition: ?10/10 still on comfort care measures. ?10/09 still on comfort care measures. Will continue current management. ? 10/08 patient now full comfort care measures and inpatient hospice. As mentioned above DC all heroic measures including IV antibiotics/chronic med treatment. Patient's life expectancy less than 48 hours unless rapid clinical improvement noted. Transferred to nonmonitored telemetry bed today.
[2023-10-11] MEDS: LORazepam 2MG/ML VIAL 2 MG IV (11:54)
--- NOTE | 2023-10-11 17:04 | PC.NURSE ---
pt has remained comfortable throughout the shift. prn dose of Ativan given around 1200 due to slight agitation. family has been at bedside all day and informed of care. respirations shallow but regular. BP has decreased throughout shift (93/46 @ 1000). extremities cool. no oral intake and minimal urine output in canister. hospice nurse visited today and consulted with family. pt supine in bed resting comfortably.
[2023-10-11] MEDS: MORPHINE 2MG/ML SYRINGE 2 MG IV (21:21)
--- NOTE | 2023-10-11 21:22 | PC.NURSE ---
increase in labored breathing between and 1899 during shift change. patient is mottling and cold from knee and below, and forearm to fingertips. Patient is non-responsive and unable to squeeze hand with ques. 2L NC transfered from nares to mouth r/t mouth breathing. Patient has been turned at 2000 to right side.
[2023-10-12] MEDS: MORPHINE 2MG/ML SYRINGE 2 MG IV ×2 (03:51→05:37)
[2023-10-12 04:00] VITALS: BMI 16.1
--- NOTE | 2023-10-12 06:06 | PC.NURSE ---
patient was pronounced decreased at 0545 by Kiki Cordova. , Travon, was contacted at 0548 and states he will contact his son and they will be coming in. BOB contacted at [phone], Morenita Bermudez ruled out per BOB guidelines. [phone] Elida Milian Andrea performed post mortem care.
--- NOTE | 2023-10-12 13:46 | EXP.DEATH.DS ---
Discharge Sum: Prov Provider Primary care physician: Santana Lee MD Visit Care Team Role Provider Type Santana Lee MD Primary Care Provider Staff Physician Daya Donnelly MD Emergency Provider ER Physician Henry Klein MD Admit Provider Staff Physician Attending Provider Admitting clinician: Seth Aguilar Attending physician on admission: seth aguilar Consults: 10/09/23 10:35 Consult to Hospice [CONS] Routine Comment: n/a Consulting Provider: Pronouncing clinician: Hayley Cordova Discharge Sum: Diag PCOD Cause of : Respiratory arrest Contributing Factors (1) (HFpEF) heart failure with preserved ejection fraction: (2) Centrilobular emphysema: (3) Cachexia: (4) Anemia, chronic disease: (5) Multifocal pneumonia: (6) Acute metabolic encephalopathy: Discharge Sum: Summary Date and Time Date of admission: 10/05/23 15:05 Date of : 10/12/23 Hospital Course prior to Hospital Course Information: Patient with respiratory failure secondary to infection, CHF, MDS, emphysema. Patient on comfort care measures for several days expiring 10/12/2023 this a.m. Additional Data Confirmation of as documented by pronouncing clinician: no pulse Family: at bedside Attending/PCP notified?: Yes Attending physician: Seth Aguilar MD Was code activated?: No
== END 2023-10-12 07:18 | disposition expired ==
LOC: ER 13:16 → 2ND 15:07
PROVIDERS: Family Medicine; Internal Medicine Pulmonary Disease; Physician Assistant; Admitting Provider Internal Medicine Adolescent Medicine; Emergency Provider Student in an Organized Health Care Education/Training Program; PCP Family Medicine; Visit Provider Internal Medicine Adolescent Medicine
DX: E43 Unspecified severe protein-calorie malnutrition (principal); G93.41 Metabolic encephalopathy; R64 Cachexia; I21.A1 Myocardial infarction type 2; I11.0 Hypertensive heart disease with heart failure; I50.33 Acute on chronic diastolic (congestive) heart failure; J69.0 Pneumonitis due to inhalation of food and vomit; J96.21 Acute and chronic respiratory failure with hypoxia; Z68.1 Body mass index [BMI] 19.9 or less, adult; J96.22 Acute and chronic respiratory failure with hypercapnia; I48.0 Paroxysmal atrial fibrillation; Z79.899 Other long term (current) drug therapy; Z79.01 Long term (current) use of anticoagulants; D46.9 Myelodysplastic syndrome, unspecified; M40.292 Other kyphosis, cervical region; M40.294 Other kyphosis, thoracic region; Z66 Do not resuscitate; Z99.81 Dependence on supplemental oxygen; N28.1 Cyst of kidney, acquired; J43.2 Centrilobular emphysema; D53.9 Nutritional anemia, unspecified
CPT/HCPCS: 36415; 36430; 70450; 71045; 71275; 74176; 80048; 80053; 80162; 81001; 82140; 82533; 82607; 82746; 82803; 83735; 83880; 84100; 84145; 84443; 84484; 85007; 85014; 85018; 85025; 85027; 86850; 87040; 87081; 87581; 87632; 87635; 87798; 93005; 93306; 94640; 94660; 94761; 97162; 97165; 97530; 99291; J0456; J0692; J0696; J1940; J2060; J2270; J2405; J3370; J3480; J7030; J7120; J7620; P9016; Q9967